=== PATIENT | male | born 1960 | race Caucasian/White ===

== ENCOUNTER → 2017-10-27 14:45 | Outpatient (CLI) | payer OTHER, SELFPAY | PROVIDERS: Visit Provider Orthopaedic Surgery | DX: M25.562 Pain in left knee (principal) | CPT/HCPCS: 73564 ==

== ENCOUNTER 2019-02-17 11:28 | Emergency (ER) | payer OTHER, SELFPAY ==
[2019-02-17 11:28] VITALS: BP 149/85; PULSE 71; RESP 18; TEMP 36.4; O2SAT 97; BMI 33.2
--- NOTE | 2019-02-17 11:46 | CT_ITS ---
STUDY: CT ABDOMEN AND PELVIS WITHOUT CONTRAST REASON FOR EXAM: Male, 58 years old. Right flank pain RADIATION DOSAGE (If Supplied By Facility): CTDIvol = ( 21.46 ) mGy, DLP = ( 1099.19 ) mGycm TECHNIQUE: Transaxial images were obtained from the dome of the diaphragm to the symphysis pubis without oral contrast, and without intravenous contrast. Sagittal and coronal images were reconstructed. Individualized dose optimization techniques were used for this CT. COMPARISON: None. FINDINGS: The visualized lung bases are unremarkable. The visualized portions of the heart are within normal limits. Normal liver. Normal gallbladder and extrahepatic biliary system. Normal spleen. Normal pancreas. Normal bilateral adrenal glands. Normal right kidney. Normal left kidney. Normal visualized stomach. Normal small intestine. Normal colon. The appendix is visualized and appears normal. Normal abdominal aorta. Normal inferior vena cava. Normal retroperitoneum. Normal urinary bladder. There is enlargement of the prostate gland. Nodular soft tissue focus in the region of the umbilicus measuring 2.4 x 1.3 cm may represent scar tissue. Right pelvic hernia repair material is noted with possible recurrence of a hernia at this location. Fat-containing left inguinal hernia. Normal osseous structures. CT/Abdomen/Pelvis without Cont IMPRESSION: No acute process is identified. A right hernia repair is noted with possible small recurrence of a fat-containing hernia dislocation. No renal stones are identified. Electronically Signed: Sukumar Cardenas, at 13:11 EST Tel , Service support ,
[2019-02-17 12:01] LABS: Absolute Lymphocyte Count 2.16 X10^3/uL (0.83-4.51); Absolute Neutrophil Count 3.7 X10^3/uL (2.0-7.7); Basophil# 0.03 X10^3/uL; Basophil% 0.5 % (0-1); Eosinophil# 0.13 X10^3/uL; Hematocrit 41.4 % (40-54); Hemoglobin 14.4 g/dL (13.0-16.5); Lymphocyte # 2.16 X10^3/ul (4.0); Lymphocyte % 33.1 % (19-41); Mean Corp Hgb Conc 34.8 g/dL (32-36); Mean Corpuscular Hgb 32.5 pg (27.0-32.0); Mean Corpuscular Volume 93.5 fL (80-94); Mean Platelet Vol. 9.5 fl (6.2-12.0); Monocyte# 0.48 X10^3/uL; Monocyte% 7.4 % (0-10); NRBC Flagged by Analyzer 0 % (0-5); Neutrophil # 3.69 X10^3/uL (2.7-7.7); Neutrophil % 56.5 % (47-70); Platelet Count 298 K/mm3 (150-450); RBC Distribution Width CV 11.8 % (11.6-14.6); RBC Distribution Width SD 40.8 fl (35.1-43.9); Red Blood Count 4.43 M/mm3 (4.6-6.2); White Blood Count 6.5 K/mm3 (4.4-11.0)
[2019-02-17] MEDS: 0.9% Normal Saline 1,000 ML 150 ML IV (12:10)
[2019-02-17] MEDS: HYDROmorphone 1 MG/ML Syringe IV ×2 (12:11→14:17)
[2019-02-17] MEDS: diazePAM 5 MG Tablet PO (12:11)
[2019-02-17] MEDS: Ketorolac 15 MG/ML Vial IV (12:11)
[2019-02-17] MEDS: Ondansetron 4 MG/2 ML Vial IV (12:11)
[2019-02-17 12:14] LABS: Anion Gap 4 (5-15); BUN 16 mg/dL (7-18); BUN/Creat Ratio 16.6 RATIO (10-20); Calcium,Total 8.6 mg/dL (8.5-10.1); Chloride 107 mmol/L (98-107); Creatinine, Serum 0.96 mg/dL (0.70-1.30); EST Glomerular Filtration Rate 85 mL/min (>60); Est Glom Filt Rate - Afr Amer 103 mL/min (>60); Estimated Creatinine Clearance 92.06 ml/min; Glucose 94 mg/dL (74-106); Potassium 4.1 mmol/L (3.5-5.1); Sodium Level 139 mmol/L (136-145)
--- NOTE | 2019-02-17 13:28 | ED.DCSUM_ITS ---
- ER Visit Summary Date of Service: 02/17/19 Chief Complaint: [Back pain] History of Present Illness: The patient is a 58 M [presents to the emergency department complaint of back pain that is had for for 5 months. Patient states his symptoms really became severe yesterday. Patient states that he lifted s omething for 5 months ago and injured his back and went to urgent care and was given prednisone and got significantly better. Yesterday started with some gradual pain in his back that progressively worsened to the point where he is having a hard time moving around now. Patient denies weakness in extremities. He denies any change in bowel bladder function. Patient does describe pain rating down both legs at times. Patient denies any fevers. He denies IV drug use. He denies difficulty with erection.] Physical Examination: [HEVINEET-PERRLA, EOMI. Cranial nerves II through XII grossly intact. TMs clear. Mucous membranes moist. No adenopathy. Cardiovascular-regular rate and rhythm without murmur or ectopy Lungs-clear to auscultation, chest wall stable without crepitus or subcu emphysema Abdomen-normoactive bowel sounds, soft, nontender, no rebound or rigidity, no peritoneal signs. Back exam-patient has tenderness palpation over right lumbar paraspinal muscu lature that seems to reproduce his pain. Patient does have positive straight leg raises bilaterally with pain in about 20 degrees while sitting. Deep tendon reflexes are plus 2 out of 4 bilaterally at the patella and Achilles. Patient has normal 5 extension bilaterally. Patient has normal sensation to light touch. Extremities-intact ?4, normal range of motion, normal pulses, atraumatic] Test Results: [CBC with differential obtained was normal. Chemistries normal. CT scan of the abdomen pelvis without contrast essentially showed nothing acute.] Emergency Department Course and Treatment: [Patient had an IV line established. He was given Dilaudid as well as Zofran. Patient was given p.o. Valium and he had good pain relief with that. Patient is able to move around easier.] Treatment Plan: [Patient will be given a prescription for Valium as well as [place] and a Medrol Dosepak. Patient advised to follow-up with his primary care physician within next 3 to 5 days. Patient advised to return if worsening pain, weakness in extremities, change in bowel bladder function, or condition should worsen anyway. At this time he was cautioned on signs and symptoms of cauda equina which he does not currently have.] Patient understands he may require further imaging if symptoms do not improve or worsen such as possibly MRI. Disposition: [Discharged home in stable condition.] Impression: [Back pain Lumbar radiculopathy] This note was generated with [employer] dictation software. It may contain incorrect words, spelling, and punctuation that were not noted in review of the chart prior to signing ED Disposition - Plan for ED Patient: Referrals: Care Physician,No Primary [Primary Care Provider] -
--- NOTE | 2019-02-17 13:31 | ED.DEP ---
ED Disposition - Plan for ED Patient: Instructions: BACK SPASM, No Trauma, BACK PAIN w/ SCIATICA Prescriptions: MethylPREDNISolone DosePak [Medrol DosePak] 4 mg PO UD #1 box Prescription Printed Hydrocodone Bitart/Apap 5-325 [[place] 5MG-325MG] 1 tab PO Q4H PRN PRN 2 Days #20 tab PRN Reason: Pain Prescription Printed Diazepam [Valium] 5 mg PO Q8 PRN #10 tab PRN Reason: Muscle Spasm Prescription Printed Referrals: Care Physician,No Primary [Primary Care Provider] - Ti Dorsey MD [STAFF PHYSICIAN] - 3-5 Days
[2019-02-17 14:36] VITALS: BP 144/72; PULSE 53; PULSE 56; RESP 18; O2SAT 98
== END 2019-02-17 14:44 | disposition home or self-care (01) ==
LOC: ED 11:54
PROVIDERS: Emergency Provider Emergency Medicine
DX: M54.16 Radiculopathy, lumbar region (principal)
CPT/HCPCS: 74176; 80048; 85025; 96361; 96374; 96375; 96376; 99283; J7030; A4216; J2405

== ENCOUNTER 2020-05-30 15:05 | Outpatient (RCR) | payer OTHER, SELFPAY ==
[2020-05-30] MEDS: COVID-19 VACC, MRNA(PFIZER)/PF 30 MCG/0.3 ML SYRINGE IM (13:18)
[2020-06-20] MEDS: COVID-19 VACC, MRNA(PFIZER)/PF 30 MCG/0.3 ML SYRINGE IM (12:31)
== END 2020-05-30 23:59 ==
LOC: IMMUN 15:05
PROVIDERS: PCP Family Medicine; Visit Provider Family Medicine
DX: Z23 Encounter for immunization (principal)
CPT/HCPCS: 0001A; 0002A; 91300

== ENCOUNTER 2023-03-02 04:07 | Emergency (ER) | payer OTHER, SELFPAY ==
[2023-03-02 04:09] VITALS: BP 158/85; PULSE 76; RESP 15; TEMP 36.3; O2SAT 99
--- NOTE | 2023-03-02 04:22 | EDS_ITS ---
HPI History of Present Illness Chief Complaint: Back Informant: patient and spouse/S.O. Narrative Narrative: Presents with right-sided lower back pain. Patient's had problems like this couple times in the past. He is actually responded well to steroids. He states yesterday he got out of bed and felt a sharp pain in his lower back. He went to work and he was able to come to work it out and did better. But if he bent in certain ways it caused pain. Occasion ally the pain goes down the back of his leg but does not go quite to his knee. No weakness. Patient has no bowel or bladder acute dysfunction. For the last 6 or 8 months he has been having more frequent urination and night but figures this is large prostate and his brother had the same problem. There is no acute change in this. He has had some constipation problems in the past but not having them now. He has not had fevers or chills. No acute trauma. He has never had back surgery. [facility] Medical History Back pain Brain tumor Cancer of skin, face Sfwmk-Cqusolxrj-Rnakg (WPW) syndrome Home Medications hydrocodone-acetaminophen 5-325mg 5mg-325mg 1 tab PO Q6H PRN PRN Pain 3 days #10 TABLETS 03/02/23 [Rx Last Taken Unknown] prednisone 20 mg tablet 60 mg (3 x 20 mg) PO DAILY #15 TABLETS 03/02/23 [Rx Last Taken Unknown] Allergy/AdvReac Type Severity Reaction Status Date / Time latex Allergy Hives Verified 02/17/19 11:31 Surgical History H/O right knee surgery History of hernia surgery Social History Smoking Status: Never smoker ROS ROS ED ROS Narrative A complete review of systems was performed and is negative except as documented in the history of present illness. Some specific details below. Constitutional: No recent fevers or chills. No rigors. Patient has not generally felt ill. ENT: No sinus pressure or pain. No nasal discharge. CV: No chest pain, pressure or aching. No palpitations or irregular beats. Patient has not been presyncopal or syncopal. 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 Respiratory: No trouble breathing. No cough. GI: No abdominal pain. No nausea vomiting diarrhea. No blood in stool. No loss of bowel control. No history of AAA. : No frequency dysuria or hematuria. No incontinence or urinary retention. Also see history of present illness Musculoskeletal: No recent trauma. No swelling. Please see history of present illness. Skin: No rash. No diaphoresis. No vesicles. Neuro: No weakness or numbness. He has pain that will occasionally radiate down the back of the right leg but does not go quite to the knee. No weakness of ambulation. No sensory changes in the extremities. Please see history of present illness also. Endocrine: No polyuria or polydipsia. EXAM Physical Exam Narrative Exam Narrative: CONSTITUTIONAL: Patient is nontoxic in appearance. The patient looks comfortable. Work of breathing looks normal. HEENT: No notable trauma. Mucous membranes moist. No dental infections. EYES: No conjunctival injection. No pallor. NECK: No meningismus. No JVD. CARDIOVASCULAR: Regular rate. Regular rhythm. No notable murmur. No JVD. RESPIRATORY: No respiratory distress. Breathing is unlabored. No wheezes. No rhonchi. No rales. No pain with a deep breath. GASTROINTESTINAL: Not distended. Bowel sounds are normal. No tenderness. No guarding. No rebound. No palpable mass. No bruit. GENITOURINARY: No tenderness over the bladder. No CVA tenderness. MUSCULOSKELETAL: Atraumatic. No peripheral edema. No cord. No tenderness along the deep venous system. No asymmetry. Distal pulses are intact. Patient does have some little very low right paraspinal tenderness. This is not CVA tenderness. This is much lower. But there is no skin changes there. He has only very mild sciatic notch tenderness. NEUROLOGICAL: Patient is alert and oriented. No focal deficit noted. Patient can stand on toes and heels and do squats although that does hurt the back a bit. Patellar reflex is strong and 2+. Achilles reflex 1+ bilaterally. SKIN: No noted rashes. No diaphoresis. No vesicles noted. No notable pallor. PSYCHIATRIC: Patient is calm. Mood is appropriate. Const Vital Signs: 03/02/23 04:09 Temperature 97.3 F L Temperature Source Temporal Pulse Rate 76 Respiratory Rate 15 Blood Pressure 158/85 H Blood Pressure Mean 109 Pulse Ox 99 Oxygen Delivery Method Room Air MDM MDM MDM Narrative Medical decision making narrative: Patient has what sounds like musculoskeletal back pain. He has no red flags of back pain. He has had this before. He has responded well to steroids. I will initiate those. I will also give him straight meds for pain. I would like to avoid nonsteroidals while he is on steroids. His online prescribing report shows absolutely no controlled substances at all. I believe this patient is seeking improvement in management of his pain and is not seeking meds specifically. Discharge Plan Triage Chief Complaint: Back ED Provider: Stanley Rasmussen Dx/Rx/DC Orders Clinical Impression: Right lumbar pain Instructions: ED Back Pain (Acute or Chronic) Prescriptions: New hydrocodone-acetaminophen [hydrocodone-acetaminophen] 5-325 mg tablet 1 tab PO Q6H PRN PRN (Reason: Pain) 3 Days Qty: 10 0RF prednisone 20 mg tablet 60 mg PO DAILY Qty: 15 0RF Stand Alone Forms: ED Work / School Excuse Referrals: Janet Apple MD [Med Staff - [facility]] - 3-5 Days if not improving Activity Restrictions/Additional Instructions: Follow-up with your doctor or referral as above. Disposition Disposition: Home, Self Care
--- NOTE | 2023-03-02 04:53 | ED.RN ---
TORADOL 30 MG IM GIVEN LEFT DELTOID @ 0444. MORPHINE 4 MG IM GIVEN RIGHT DELTOID @ 0446. MEDICATIONS VERIFIED WITH PRAVIN CANDELARIO RN.
[2023-03-02 05:13] VITALS: BP 126/89; PULSE 78; RESP 15; O2SAT 98
== END 2023-03-02 05:14 | disposition home or self-care (01) ==
PROVIDERS: Emergency Provider Emergency Medicine; Visit Provider Emergency Medicine
DX: M54.50 Low back pain, unspecified (principal)
CPT/HCPCS: 99282

== ENCOUNTER → 2023-12-30 | Outpatient (CLI) | payer OTHER, SELFPAY ==
[2023-12-30 07:29] LABS: AST(SGOT) 15 U/L (15-37); Alanine Aminotransfer ALT/SGPT 21 U/L (16-61); Albumin, Serum 3.7 g/dL (3.2-5.0); Alkaline Phosphatase 64 U/L (45-117); Bilirubin, Direct 0.28 mg/dL (0.00-0.30); Cholesterol 206 mg/dL (200); Globulin 3.3 g/dL (2.2-4.2); High Density Lipoprotein 46 mg/dL; Triglycerides 93 mg/dL; Very Low Density Lipoprotein 19 mg/dL (5-40)
== END | disposition home or self-care (01) ==
PROVIDERS: PCP Family Medicine; Referring Provider Family Medicine; Visit Provider Family Medicine
DX: Z00.00 Encounter for general adult medical examination without abnormal findings (principal); Z91.89 Other specified personal risk factors, not elsewhere classified
CPT/HCPCS: 36415; 80061; 80076

== ENCOUNTER → 2024-01-06 | Outpatient (CLI) | payer OTHER, SELFPAY ==
--- OUTSIDE RECORDS SUMMARY | 2024-01-06 10:24 | XMS RPT_ITS | CCD ---
Author Organization [facility] Care Team Providers Care Urinalysis Technician Name Role Phone RHETT PALENCIA III Attending CHARMAINE Carver Primary Care Physician [phone] KEYUR STEWART, DR ANDRIY Resendiz Attending CHARMAINE Hernandez Primary Care Pieter BAER MD, DR ANDRIY Resendiz Attending Geneab CAMMIE AgueroNAH Primary Care Pieter BAER MD, DR ANDRIY Resendiz Attending CHARMAINE Hernandez Primary Care Pieter BAER MD, DR ANDRIY Resendiz Admitting Unavailab bryan JACOBSEN CRUSHER-SEAL MIXING OPERATOR, MIKO Zhou Consulting León BAER MD, DR ANDRIY Resendiz Referring Geneab le Allergies Allergy Classification Reported Allergen(s) Allergy Type Date of Onset Reaction(s) Facility (4 sources) Latex; Translations: [LATEX] Propensity to adverse reactions (disorder) 3 RASH [facility] Other [place] [facility]ository Medications Current Medications Medication Drug Class(es) Dates Sig (Normalized) Sig (Original) acetaminophen 1000 mg oral tablet (1 source) Start: 09-14-2023 take 1 tablet by mouth once daily Tylenol Dose : 1,000 mg = 2 tab(s), Oral, TID, not to exceed 3000 mg/day, 0 Refill(s) Start Date: 09/14/23 Status: Ordered aspirin 81 mg delayed release oral tablet (1 source) Platelet Aggregation Inhibitor, Nonsteroidal Anti-inflammatory Drug Start: 09-14-2023 End: 10-14-2023 take 1 tablet by mouth twice daily aspirin 81 mg oral delayed release tablet Dose : 81 mg = 1 tab(s), Oral, BID, Take 81 mg aspirin twice daily with food for 4 weeks postoperatively for DVT prophylaxis., # 60 tab(s), 0 Refill(s), Pharmacy: [facility]/pharmacy #[id number], 182, cm, 09/13/23 13:39:00 EDT, Height, kg, 09/13/23 13:39:00 EDT, Dosing Weight Start Date: 09/14/23 Stop Date: 10/14/23 Status: Ordered docusate sodium 50 mg / sennosides, halfway 8.6 mg oral tablet (1 source) Start: 09-14-2023 End: 09-17-2023 take 1 tablet by mouth twice daily Senokot S 50 mg-8.6 mg oral tablet Dose = 2 tab(s), Oral, BID, Take until first bowel movement, then as needed, X 3 day(s), # 12 tab(s), 0 Refill(s), Pharmacy: [facility]/pharmacy #[id number], 182, cm, 09/13/23 13:39:00 EDT, Height, kg, 09/13/23 13:39:00 EDT, Dosing Weight Start Date: 09/14/23 Stop Date: 09/17/23 Status: Ordered famotidine 20 mg oral tablet (1 source) Histamine-2 Receptor Antagonist Start: 09-14-2023 Pepcid 20 mg oral tablet Dose : 20 mg = 1 tab(s), Oral, qDay, # 30 tab(s), 0 Refill(s), Pharmacy: [facility]/pharmacy #[id number], 182, cm, 09/13/23 13:39:00 EDT, Height, kg, 09/13/23 13:39:00 EDT, Dosing Weight Start Date: 09/14/23 Status: Ordered loratadine 10 mg oral tablet (3 sources) Start: 08-17-2023 Claritin 10 mg oral tablet Dose : 10 mg = 1 tab(s), Oral, qDay, # 30 tab(s), 2 Refill(s) Start Date: 08/17/23 Status: Ordered meloxicam 15 mg oral tablet (3 sources) Nonsteroidal Anti-inflammatory Drug Start: 08-17-2023 take 1 tablet by mouth once daily meloxicam 15 mg oral tablet TAKE 1 TABLET BY MOUTH ONCE DAILY Start Date: 08/17/23 Status: Ordered oxyCODONE hydrochloride 5 mg oral tablet (1 source) Opioid Agonist Start: 09-14-2023 End: 09-21-2023 take 1-2 tablets by mouth every four hours as needed for pain oxyCODONE 5 mg oral tablet ( IMMEDIATE release ) See Instructions, PRN as needed for pain, 1-2 tab(s) Oral q4h, # 48 tab(s), 0 Refill(s), 09/21/23 7:47:00 AM EDT, Pharmacy: [facility]/pharmacy #[id number], Status post total left knee replacement, 182, cm, 09/13/23 13:39:00 EDT, Height, 108.5, kg, 09/13/23 13:39:00 EDT, Dosing Weight Start Date: 09/14/23 Stop Date: 09/21/23 Status: Ordered Problems Problem Classification Problem Date Documented Da te Episodic/Chronic Allergic reactions (1 source) Allergic disposition; Translations: [Allergy, unspecified, initial encounter] Onset: 09-13-2023 Episodic Neoplasms of unspecified nature or uncertain behavior (1 source) 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 Osteoarthritis (1 source) Osteoarthritis; Translations: [Unspecified osteoarthritis, unspecified site] Onset: 09-13-2023 Chronic Other connective tissue disease (1 source) Artificial knee joint present; Translations: [Presence of left artificial knee joint] Onset: 09-14-2023 Chronic Spondylosis; intervertebral disc disorders; other back problems (2 sources) Backache; Translations: [Dorsalgia, unspecified] Onset: 09-13-2023 Episodic Sprains and strains (1 source) Strain of muscle, fascia and tendon of other parts of biceps, right arm, initial encounter; Translations: [Strain of muscle, fascia and tendon of other parts of biceps, right arm, initial encounter] Onset: 04-05-2018 Episodic Unclassified (1 source) Patient encounter status 08-29-2023 Results Test Name Value Interpretation Reference Range Facility .Auto Diffon 09-14-2023 Basophil, Absolute 0.0 10 3/mcL Normal 0.0-0.2 [facility] ([place]) Comment on above: Performed By: #### G FR, CBC, HAYDEE ESTES, BMP #### [address] [address] Basophils/100 WBC (Bld) 0.1 % Normal 0.0-2.5 [facility] ([place]) Comment on above: Performed By: #### G FR, CBC, ADLAURI, ANEU, BMP #### [address] [address] Eosinophil, Absolute 0.0 10 3/mcL Normal 0.0-0.4 [facility] ([place]) Comment on above: Performed By: #### G FR, CBC, ADIFF, ANEU, BMP #### [address] [address] Eosinophils/100 WBC (Bld) 0.0 % Normal 0.0-7.0 [facility] ([place]) Comment on above: Performed By: #### G FR, CBC, ADIFF, ANEU, BMP #### [address] [address] Lymphocyte, Absolute 1.3 10 3/mcL Normal 0.8-3.9 [facility] ([place]) Comment on above: Performed By: #### G FR, CBC, ADIFF, ANEU, BMP #### [address] [address] Lymphocytes/100 WBC (Bld) 8.5 % Low 10.0-50.0 [facility] ([place]) Comment on above: Performed By: #### G FR, CBC, ADIFF, ANEU, BMP #### [address] [address] Monocyte, Absolute 0.8 10 3/mcL Normal 0.2-1.0 [facility] ([place]) Comment on above: Performed By: #### G FR, CBC, ADIFF, ANEU, BMP #### [address] [address] Monocytes/100 WBC (Bld) 5.4 % Normal 1.7-13.0 [facility] ([place]) Comment on above: Performed By: #### G FR, CBC, ADIFF, ANEU, BMP #### [address] [address] Neutrophils/100 WBC (Bld) 86.0 % High 37.0-80.0 [facility] ([place]) Comment on above: Performed By: #### G FR, CBC, ADIFF, ANEU, BMP #### [address] [address] .GFRon 09-14-2023 GFR 87 ml/min/1.73sqm Normal [facility] ([place]) Comment on above: Result Comment: GFR Population mean for , Non- Americans Ages 20-29 = 116 mL/min/1.73 sq.m. Ages 30-39 = 107 mL/min/1.73 sq.m. Ages 40-49 = 99 mL/min/1.73 sq.m. Ages 50-59 = 93 mL/min/1.73 sq.m. Ages 60-69 = 85 mL/min/1.73 sq.m. Ages 70+ = 75 mL/min/1.73 sq.m. Chronic Kidney Disease: Less than 60 mL/min/1.73 square meters End Stage Renal Disease: Less than 15 mL/min/1.73 square meters Performed By: #### G FR, CBC, ADIFF, ANEU, BMP #### [address] [address] GFR Non- 72 ml/min/1.73sqm Normal [facility] ([place]) Comment on above: Result Comment: GFR Population mean for , Non- Americans Ages 20-29 = 116 mL/min/1.73 sq.m. Ages 30-39 = 107 mL/min/1.73 sq.m. Ages 40-49 = 99 mL/min/1.73 sq.m. Ages 50-59 = 93 mL/min/1.73 sq.m. Ages 60-69 = 85 mL/min/1.73 sq.m. Ages 70+ = 75 mL/min/1.73 sq.m. Chronic Kidney Disease: Less than 60 mL/min/1.73 square meters End Stage Renal Disease: Less than 15 mL/min/1.73 square meters Performed By: #### G FR, CBC, ADIFF, ANEU, BMP #### [address] [address] .NEUABSon 09-14-2023 Neutrophil, Absolute 12.8 10 3/mcL High 2.9-6.2 A [facility] ([place]) Comment on above: Performed By: #### G FR, CBC, ADIFF, ANEU, BMP #### [address] [address] BMPon 09-14-2023 BUN/Creatinine Ratio 23 ratio Normal 7-27 [facility] ([place]) Comment on above: Performed By: #### G FR, CBC, ADIFF, ANEU, BMP #### [address] [address] Calcium [Mass/Vol] 9.2 mg/dL Normal 8.4-10.2 [facility] [place] Comment on above: Performed By: #### G FR, CBC, ADIFF, ANEU, BMP #### [place] [id number] Chloride [Moles/Vol] 103 mmol/L Normal 98-107 [facility] ([place]) Comment on above: Performed By: #### G FR, CBC, ADIFF, ANEU, BMP #### [place] [address] CO2 [Moles/Vol] 26 mmol/L Normal 23-31 [facility] ([place]) Comment on above: Performed By: #### G FR, CBC, ADIFF, ANEU, BMP #### [place] [address] Creatinine [Mass/Vol] 1.04 mg/dL Normal 0.70-1.30 [facility] ([place]) Comment on above: Performed By: #### G FR, CBC, ADIFF, ANEU, BMP #### [address] [address] Electrolyte Balance 10.0 mEq/L Normal 4.0-15.0 [facility] ([place]) Comment on above: Performed By: #### G FR, CBC, ADIFF, ANEU, BMP #### [place] [id number] Glucose [Mass/Vol] 118 mg/dL High 80-115 [facility] [place] Comment on above: Performed By: #### G FR, CBC, ADIFF, ANEU, BMP #### [address] [address] Potassium [Moles/Vol] 5.1 mmol/L Normal 3.5-5.1 [facility] ([place]) Comment on above: Performed By: #### G FR, CBC, ADIFF, ANEU, BMP #### [address] [address] Sodium [Moles/Vol] 139 mmol/L Normal 136-145 [facility] [place] Comment on above: Performed By: #### G FR, CBC, ADIFF, ANEU, BMP #### [address] [address] Urea nitrogen [Mass/Vol] 24 mg/dL High 7-18 [facility] ([place]) Comment on above: Performed By: #### G FR, CBC, ADIFF, ANEU, BMP #### [address] [address] CBCon 09-14-2023 Erythrocyte distribution width (RBC) [Ratio] 13.3 % Normal 11.5-14.5 [facility] ([place]) Comment on above: Performed By: #### G FR, CBC, ADIFF, ANEU, BMP #### [place] [address] Hematocrit (Bld) [Volume fraction] 35.4 % Low 42.0-52.0 [facility] ([place] Comment on above: Performed By: #### G FR, CBC, ADIFF, ANEU, BMP #### [address] [address] Hgb 12.1 G/dL Low 14.0-18.0 [facility] ([place] Comment on above: Performed By: #### G FR, CBC, ADIFF, ANEU, BMP #### [address] [address] MCH (RBC) [Entitic mass] 31.7 pg High 27.0-31.2 [facility] ([place]) Comment on above: Performed By: #### G FR, CBC, ADIFF, ANEU, BMP #### [address] [place] [address] MCHC 34.1 G/dL Normal 31.8-35.4 [facility] ([place]) Comment on above: Performed By: #### G FR, CBC, ADIFF, ANEU, BMP #### [address] [address] MCV (RBC) [Entitic vol] 92.7 fL Normal 80.0-94.0 [facility] ([place]) Comment on above: Performed By: #### G FR, CBC, ADIFF, ANEU, BMP #### [place] [address] Platelet 288 10 3/mcL Normal 130-400 [facility] ([place]) Comment on above: Performed By: #### G FR, CBC, ADIFF, ANEU, BMP #### [place] [address] Platelet mean volume (Bld) [Entitic vol] 8.4 fL Normal 7.4-10.4 [facility] ([place]) Comment on above: Performed By: #### G FR, CBC, ADIFF, ANEU, BMP #### [place] [address] RBC 3.82 10 6/mcL Low 4.04-6.13 [facility] ([place] Comment on above: Performed By: #### G FR, CBC, ADIFF, ANEU, BMP #### [place] [id number] WBC 14.9 10 3/mcL High 4.6-10.8 [facility] ([place]) Comment on above: Performed By: #### G FR, CBC, ADIFF, ANEU, BMP #### [address] [address] LABORATORYOrdered By: SYSTEM SYSTEM on 09-14-2023 Basophil, Absolute 0.0 103/mcL Normal 0.0 - 0.2 10^3/mcL AO Workflow SS Basophils/100 WBC (Bld) 0.1 % Normal 0.0 - 2.5 % AO Workflow SS Calcium [Mass/Vol] 9.2 mg/dL Normal 8.4 - 10. 2 mg/dL AO ADM SS Chloride [Moles/Vol] 103 mmol/L Normal 98 - 10 7 mmol/L AO ADM SS CO2 [Moles/Vol] 26 mmol/L Normal 23 - 31 mmol/L AO ADM SS Creatinine [Mass/Vol] 1.04 mg/dL Normal 0.70 - 1.30 mg/dL AO ADM SS Electrolyte Balance 10.0 mEq/L Normal 4.0 - 15 .0 mEq/L AO ADM SS Eosinophil, Absolute 0.0 103/mcL Normal 0.0 - 0 .4 10^3/mcL AO Workflow SS Eosinophils/100 WBC (Bld) 0.0 % Normal 0.0 - 7.0 % AO Workflow SS Erythrocyte distribution width (RBC) [Ratio] 13.3 % Normal 11.5 - 14.5 % AO Workflow SS GFR/1.73 sq M.predicted among blacks MDRD (S/P/Bld) [Vol rate/Area] 87 ml/min/1.73sqm Invalid Interpretation Code AO Chemistry S Comment on above: Interpretive Data: GFR Population mean for , Non- Americans Ages 20-29 = 116 mL/min/1.73 sq.m. Ages 30-39 = 107 mL/min/1.73 sq.m. Ages 40-49 = 99 mL/min/1.73 sq.m. Ages 50-59 = 93 mL/min/1.73 sq.m. Ages 60-69 = 85 mL/min/1.73 sq.m. Ages 70+ = 75 mL/min/1.73 sq.m. Chronic Kidney Disease: Less than 60 mL/min/1.73 square meters End Stage Renal Disease: Less than 15 mL/min/1.73 square meters GFR/1.73 sq M.predicted among non-blacks MDRD (S/P/Bld) [Vol rate/Area] 72 ml/min/1.73sqm Invalid Interpretation Code AO Chemistry S Comment on above: Interpretive Data: GFR Population mean for , Non- Americans Ages 20-29 = 116 mL/min/1.73 sq.m. Ages 30-39 = 107 mL/min/1.73 sq.m. Ages 40-49 = 99 mL/min/1.73 sq.m. Ages 50-59 = 93 mL/min/1.73 sq.m. Ages 60-69 = 85 mL/min/1.73 sq.m. Ages 70+ = 75 mL/min/1.73 sq.m. Chronic Kidney Disease: Less than 60 mL/min/1.73 square meters End Stage Renal Disease: Less than 15 mL/min/1.73 square meters Glucose [Mass/Vol] 118 mg/dL High 80 - 115 mg/dL AO ADM SS Hematocrit (Bld) [Volume fraction] 35.4 % Low 42.0 - 52.0 % AO Workflow SS Hemoglobin (Bld) [Mass/Vol] 12.1 G/dL Low 14.0 - 18.0 G/dL AO Workflow SS Lymphocyte, Absolute 1.3 103/mcL Normal 0.8 - 3 .9 10^3/mcL AO Workflow SS Lymphocytes/100 WBC (Bld) 8.5 % Low 10.0 - 50.0 % AO Workflow SS Magnesium [Mass/Vol] 1.9 mg/dL Normal 1.8 - 2 .4 mg/dL AO ADM SS MCH (RBC) [Entitic mass] 31.7 pg High 27.0 - 31.2 pg AO Workflow SS MCHC 34.1 G/dL Normal 31.8 - 35.4 G/dL AO Workflow SS MCV (RBC) [Entitic vol] 92.7 fL Normal 80.0 - 94.0 fL AO Workflow SS Monocyte, Absolute 0.8 103/mcL Normal 0.2 - 1.0 10^3/mcL AO Workflow SS Monocytes/100 WBC (Bld) 5.4 % Normal 1.7 - 13.0 % AO Workflow SS Neutrophil, Absolute 12.8 103/mcL High 2.9 - 6 .2 10^3/mcL AO Workflow SS Neutrophils/100 WBC (Bld) 86.0 % High 37.0 - 80.0 % AO Workflow SS Platelet mean volume (Bld) [Entitic vol] 8.4 fL Normal 7.4 - 10.4 fL AO Workflow SS Platelets (Bld) [#/Vol] 288 103/mcL Normal 130 - 400 10^3/mcL AO Workflow SS Potassium [Moles/Vol] 5.1 mmol/L Normal 3.5 - 5.1 mmol/L AO ADM SS RBC (Bld) [#/Vol] 3.82 106/mcL Low 4.04 - 6.1 3 10^6/mcL AO Workflow SS Sodium [Moles/Vol] 139 mmol/L Normal 136 - 145 mmol/L AO ADM SS Urea nitrogen [Mass/Vol] 24 mg/dL High 7 - 18 mg/dL AO ADM SS Urea nitrogen/Creatinine [Mass ratio] 23 ratio Normal 7 - 27 ratio AO ADM SS WBC (Bld) [#/Vol] 14.9 103/mcL High 4.6 - 10.8 10^3/mcL AO Workflow SS MGon 09-14-2023 Magnesium [Mass/Vol] 1.9 mg/dL Normal 1.8-2.4 [facility] ([place]) Comment on above: Performed By: #### G FR, CBC, ADIFF, ANEU, BMP #### [address] [address] ABO/Rh (Gel)on 09-13-2023 ABO/Rh Interp Negative Invalid Interpretation Code [facility] ([place]) Comment on above: Performed By: #### G FR, CBC, ADIFF, ANEU, BMP #### [address] [address] ABS (Gel)on 09-13-2023 ABSC Interp (Gel) Negative Normal [facility] ([place]) Comment on above: Performed By: #### G FR, CBC, ADIFF, ANEU, BMP #### [address] [address] LABORATORYOrdered By: Harrison Zavala on 09-13-2023 ABO and Rh group Nom (Bld) Blood group B Rh(D) negative Invalid Interpretation Code AO BB Auto SS Blood group antibody screen Ql Negative ABSC (09/13/23 8:38 AM) Normal AO BB Auto SS XR KNEE 1 OR 2 VIEWS LEFTon 09-13-2023 XR KNEE 1 OR 2 VIEWS LEFT ORIGINAL EXAMINATION: TWO XRAY VIEWS OF THE LEFT KNEE 09/13/2023 12:51 pm COMPARISON: CT of the knee dated 08/17/2023. HISTORY: ORDERING SYSTEM PROVIDED HISTORY: Reason for Exam: Status Post Arthroplasty FINDINGS: Postsurgical changes are seen status post left total knee arthroplasty. No acute fracture, dislocation or hardware failure is seen. Subcutaneous emphysema is appreciated. No unexpected radiopaque foreign body. IMPRESSION: Expected postsurgical changes status post left total knee arthroplasty. Interpreted by: Quintin Alex MD Preliminary Report By: Quintin Alex MD Electronically signed By Quintin Alex MD Dictated Date: 09/13/2023 1:01:32 PM Prelim Date: 09/13/2023 1:03:18 PM Sign Date: 09/13/2023 1:03:18 PM Ordering Provider: ANDRIY Beach [facility] ([place]) .Auto Diffon 08-17-2023 Basophil, Absolute 0.0 10 3/mcL Normal 0.0-0.2 [facility] ([place]) Comment on above: Performed By: #### G FR, ANEU, ADIFF, CBC, ALB, BMP, ABOGEL, ABSGEL #### [address] [address] Basophils/100 WBC (Bld) 0.7 % Normal 0.0-2.5 [facility]) Comment on above: Performed By: #### G FR, ANEU, ADIFF, CBC, ALB, BMP, ABOGEL, ABSGEL #### [address] [address] Eosinophil, Absolute 0.1 10 3/mcL Normal 0.0-0.4 [facility] ([place]) Comment on above: Performed By: #### G FR, ANEU, ADIFF, CBC, ALB, BMP, ABOGEL, ABSGEL #### [address] [address] Eosinophils/100 WBC (Bld) 1.7 % Normal 0.0-7.0 [facility] ([place]) Comment on above: Performed By: #### G FR, ANEU, ADIFF, CBC, ALB, BMP, ABOGEL, ABSGEL #### [address] [address] Lymphocyte, Absolute 2.1 10 3/mcL Normal 0.8-3.9 [facility] ([place]) Comment on above: Performed By: #### G FR, ANEU, ADIFF, CBC, ALB, BMP, ABOGEL, ABSGEL #### [address] [address] Lymphocytes/100 WBC (Bld) 30.6 % Normal 10.0-50.0 [facility] ([place]) Comment on above: Performed By: #### G FR, ANEU, ADIFF, CBC, ALB, BMP, ABOGEL, ABSGEL #### [address] [address] Monocyte, Absolute 0.5 10 3/mcL Normal 0.2-1.0 [facility] ([place]) Comment on above: Performed By: #### G FR, ANEU, ADIFF, CBC, ALB, BMP, ABOGEL, ABSGEL #### [address] [address] Monocytes/100 WBC (Bld) 7.7 % Normal 1.7-13.0 [facility] ([place]) Comment on above: Performed By: #### G FR, ANEU, ADIFF, CBC, ALB, BMP, ABOGEL, ABSGEL #### [address] [address] Neutrophils/100 WBC (Bld) 59.3 % Normal 37.0-80.0 [facility] ([place]) Comment on above: Performed By: #### G FR, ANEU, ADIFF, CBC, ALB, BMP, ABOGEL, ABSGEL #### [address] [address] .GFRon 08-17-2023 GFR Non- 99 ml/min/1.73sqm Normal [facility] ([place]) Comment on above: Result Comment: GFR Population mean for , Non- Americans Ages 20-29 = 116 mL/min/1.73 sq.m. Ages 30-39 = 107 mL/min/1.73 sq.m. Ages 40-49 = 99 mL/min/1.73 sq.m. Ages 50-59 = 93 mL/min/1.73 sq.m. Ages 60-69 = 85 mL/min/1.73 sq.m. Ages 70+ = 75 mL/min/1.73 sq.m. Chronic Kidney Disease: Less than 60 mL/min/1.73 square meters End Stage Renal Disease: Less than 15 mL/min/1.73 square meters Performed By: #### G FR, CBC, ADIFF, ANEU, BMP #### [address] [address] GFR 120 ml/min/1.73sqm Normal [facility] ([place]) Comment on above: Result Comment: GFR Population mean for , Non- Americans Ages 20-29 = 116 mL/min/1.73 sq.m. Ages 30-39 = 107 mL/min/1.73 sq.m. Ages 40-49 = 99 mL/min/1.73 sq.m. Ages 50-59 = 93 mL/min/1.73 sq.m. Ages 60-69 = 85 mL/min/1.73 sq.m. Ages 70+ = 75 mL/min/1.73 sq.m. Chronic Kidney Disease: Less than 60 mL/min/1.73 square meters End Stage Renal Disease: Less than 15 mL/min/1.73 square meters Performed By: #### G FR, CBC, ADIFF, ANEU, BMP #### [address] [address] .NEUABSon 08-17-2023 Neutrophil, Absolute 4.0 10 3/mcL Normal 2.9-6.2 [facility] ([place]) Comment on above: Performed By: #### G FR, ANEU, ADIFF, CBC, ALB, BMP, ABOGEL, ABSGEL #### [address] [address] ABO/Rh (Gel)on 08-17-2023 ABO/Rh Interp Negative Invalid Interpretation Code [facility] ([place]) Comment on above: Performed By: #### G FR, CBC, ADIFF, ANEU, BMP #### [address] [address] ABS (Gel)on 08-17-2023 ABSC Interp (Gel) Negative Normal [facility] ([place]) Comment on above: Performed By: #### G FR, CBC, ADIFF, ANEU, BMP #### [address] [address] ALBon 08-17-2023 Albumin Level 3.7 G/dL Normal 3.4-4.8 [facility] ([place]) Comment on above: Performed By: #### G FR, CBC, ADIFF, ANEU, BMP #### [address] [address] BMPon 08-17-2023 BUN/Creatinine Ratio 25 ratio Normal 7-27 [facility] ([place]) Comment on above: Performed By: #### G FR, ANEU, ADIFF, CBC, ALB, BMP, ABOGEL, ABSGEL #### [address] [address] Calcium [Mass/Vol] 8.3 mg/dL Low 8.4-10.2 [facility] [place] Comment on above: Performed By: #### G FR, ANEU, ADIFF, CBC, ALB, BMP, ABOGEL, ABSGEL #### [address] [address] Chloride [Moles/Vol] 104 mmol/L Normal 98-107 [facility] ([place]) Comment on above: Performed By: #### G FR, ANEU, ADIFF, CBC, ALB, BMP, ABOGEL, ABSGEL #### [address] [address] CO2 [Moles/Vol] 27 mmol/L Normal 23-31 [facility] ([place]) Comment on above: Performed By: #### G FR, ANEU, ADIFF, CBC, ALB, BMP, ABOGEL, ABSGEL #### [address] [address] Creatinine [Mass/Vol] 0.79 mg/dL Normal 0.70-1.30 [facility] ([place]) Comment on above: Performed By: #### G FR, ANEU, ADIFF, CBC, ALB, BMP, ABOGEL, ABSGEL #### [address] [address] Electrolyte Balance 10.0 mEq/L Normal 4.0-15.0 [facility] ([place]) Comment on above: Performed By: #### G FR, ANEU, ADIFF, CBC, ALB, BMP, ABOGEL, ABSGEL #### [address] [address] Glucose [Mass/Vol] 86 mg/dL Normal 80-115 [facility] [place] Comment on above: Performed By: #### G FR, ANEU, ADIFF, CBC, ALB, BMP, ABOGEL, ABSGEL #### [address] [address] Potassium [Moles/Vol] 4.6 mmol/L Normal 3.5-5.1 [facility] ([place]) Comment on above: Performed By: #### G FR, ANEU, ADIFF, CBC, ALB, BMP, ABOGEL, ABSGEL #### [address] [address] Sodium [Moles/Vol] 141 mmol/L Normal 136-145 [facility] [place] Comment on above: Performed By: #### G FR, ANEU, ADIFF, CBC, ALB, BMP, ABOGEL, ABSGEL #### [address] [address] Urea nitrogen [Mass/Vol] 20 mg/dL High 7-18 [facility] ([place]) Comment on above: Performed By: #### G FR, ANEU, ADIFF, CBC, ALB, BMP, ABOGEL, ABSGEL #### [address] [address] CBCon 08-17-2023 Erythrocyte distribution width (RBC) [Ratio] 12.9 % Normal 11.5-14.5 [facility]) Comment on above: Order Comment: Pre-A dmission Testing Performed By: #### G FR, ANEU, ADIFF, CBC, ALB, BMP, ABOGEL, ABSGEL #### [address] [address] Hematocrit (Bld) [Volume fraction] 38.5 % Low 42.0-52.0 [facility] ([place]) Comment on above: Order Comment: Pre-A dmission Testing Performed By: #### G FR, ANEU, ADIFF, CBC, ALB, BMP, ABOGEL, ABSGEL #### [address] [address] Hgb 12.9 G/dL Low 14.0-18.0 [facility] ([place] Comment on above: Order Comment: Pre-A dmission Testing Performed By: #### G FR, ANEU, ADIFF, CBC, ALB, BMP, ABOGEL, ABSGEL #### [address] [address] MCH (RBC) [Entitic mass] 31.5 pg High 27.0-31.2 [facility] ([place]) Comment on above: Order Comment: Pre-A dmission Testing Performed By: #### G FR, ANEU, ADIFF, CBC, ALB, BMP, ABOGEL, ABSGEL #### [address] [address] MCHC 33.6 G/dL Normal 31.8-35.4 [facility] ([place]) Comment on above: Order Comment: Pre-A dmission Testing Performed By: #### G FR, ANEU, ADIFF, CBC, ALB, BMP, ABOGEL, ABSGEL #### [address] [address] MCV (RBC) [Entitic vol] 93.6 fL Normal 80.0-94.0 [facility] ([place]) Comment on above: Order Comment: Pre-A dmission Testing Performed By: #### G FR, ANEU, ADIFF, CBC, ALB, BMP, ABOGEL, ABSGEL #### [address] [address] Platelet 277 10 3/mcL Normal 130-400 [facility] ([place]) Comment on above: Order Comment: Pre-A dmission Testing Performed By: #### G FR, ANEU, ADIFF, CBC, ALB, BMP, ABOGEL, ABSGEL #### [address] [address] Platelet mean volume (Bld) [Entitic vol] 8.7 fL Normal 7.4-10.4 [facility] ([place]) Comment on above: Order Comment: Pre-A dmission Testing Performed By: #### G FR, ANEU, ADIFF, CBC, ALB, BMP, ABOGEL, ABSGEL #### [address] [address] RBC 4.11 10 6/mcL Normal 4.04-6.13 [facility] ([place]) Comment on above: Order Comment: Pre-A dmission Testing Performed By: #### G FR, ANEU, ADIFF, CBC, ALB, BMP, ABOGEL, ABSGEL #### [address] [address] WBC 6.8 10 3/mcL Normal 4.6-10.8 [facility] ([place]) Comment on above: Order Comment: Pre-A dmission Testing Performed By: #### G FR, ANEU, ADIFF, CBC, ALB, BMP, ABOGEL, ABSGEL #### [address] [address] [address] KNEE W/O CONTRAST LEFTon 08-17-2023 CT KNEE W/O CONTRAST LEFT ORIGINAL EXAMINATION: CT OF THE LEFT KNEE WITHOUT CONTRAST08/17/2023 3:[address] of the left knee without contrast TECHNIQUE: Axial images of the knee are obtained with sagittal and coronal reconstructions. Limited axial imaging is also performed through the ipsilateral hip and ankle joints. This exam was performed according to our departmental dose-optimization program which includes automated exposure control, adjustment of the mA and/or kVp according to patient size and/or use of iterative reconstruction technique where applicable. COMPARISON: None HISTORY: ORDERING SYSTEM PROVIDED HISTORY: Reason for Exam: PRIMARY OSTEOARTHRITIS LEFT KNEE, pain in the left knee, robotic knee mapping, FINDINGS: Left knee: There is tricompartment marginal spurring and moderate narrowing of the medial femorotibial compartment. No aggressive bone lesion is seen. Only small knee joint effusion. There is a small medial popliteal cyst. The musculature around the knee shows no atrophy or other significant finding. Hip: Limited axial images through the hip joint. There is no significant contributory abnormality. Mild hip osteoarthritis and trochanteric enthesopathy. Small fat containing left inguinal scrotal hernia. Ankle: Limited axial images of the ankle are also obtained. No aggressive bone lesion or other contributory finding. Achilles enthesopathy of the calcaneus. IMPRESSION: Left knee moderate to severe osteoarthritis. Interpreted by: Raúl King MD Preliminary Report By: Raúl King MD Electronically signed By Raúl Kign MD Dictated Date: 08/17/2023 4:28:34 PM Prelim Date: 08/17/2023 4:31:16 PM Sign Date: 08/17/2023 4:31:16 PM Ordering Provider: ANDRIY Beach [facility] ([place]) LABORATORYOrdered By: Vick Ramsey on 08-17-2023 ABO and Rh group Nom (Bld) Blood group B Rh(D) negative Invalid Interpretation Code AO BB Auto SS Blood group antibody screen Ql Negative ABSC (08/17/23 2:22 PM) Normal AO BB Auto SS LABORATORYOrdered By: dotloop SYSTEM on 08-17-2023 Albumin BCP dye [Mass/Vol] 3.7 G/dL Normal 3.4 - 4.8 G/dL AO ADM SS Basophil, Absolute 0.0 103/mcL Normal 0.0 - 0.2 10^3/mcL AO Workflow SS Basophils/100 WBC (Bld) 0.7 % Normal 0.0 - 2.5 % AO Workflow SS Calcium [Mass/Vol] 8.3 mg/dL Low 8.4 - 10. 2 mg/dL AO ADM SS Chloride [Moles/Vol] 104 mmol/L Normal 98 - 10 7 mmol/L AO ADM SS CO2 [Moles/Vol] 27 mmol/L Normal 23 - 31 mmol/L AO ADM SS Creatinine [Mass/Vol] 0.79 mg/dL Normal 0.70 - 1.30 mg/dL AO ADM SS Electrolyte Balance 10.0 mEq/L Normal 4.0 - 15 .0 mEq/L AO ADM SS Eosinophil, Absolute 0.1 103/mcL Normal 0.0 - 0 .4 10^3/mcL AO Workflow SS Eosinophils/100 WBC (Bld) 1.7 % Normal 0.0 - 7.0 % AO Workflow SS Erythrocyte distribution width (RBC) [Ratio] 12.9 % Normal 11.5 - 14.5 % AO Workflow SS GFR/1.73 sq M.predicted among blacks MDRD (S/P/Bld) [Vol rate/Area] 120 ml/min/1.73sqm Invalid Interpretation Code AO Chemistry S Comment on above: Interpretive Data: GFR Population mean for , Non- Americans Ages 20-29 = 116 mL/min/1.73 sq.m. Ages 30-39 = 107 mL/min/1.73 sq.m. Ages 40-49 = 99 mL/min/1.73 sq.m. Ages 50-59 = 93 mL/min/1.73 sq.m. Ages 60-69 = 85 mL/min/1.73 sq.m. Ages 70+ = 75 mL/min/1.73 sq.m. Chronic Kidney Disease: Less than 60 mL/min/1.73 square meters End Stage Renal Disease: Less than 15 mL/min/1.73 square meters GFR/1.73 sq M.predicted among non-blacks MDRD (S/P/Bld) [Vol rate/Area] 99 ml/min/1.73sqm Invalid Interpretation Code AO Chemistry S Comment on above: Interpretive Data: GFR Population mean for , Non- Americans Ages 20-29 = 116 mL/min/1.73 sq.m. Ages 30-39 = 107 mL/min/1.73 sq.m. Ages 40-49 = 99 mL/min/1.73 sq.m. Ages 50-59 = 93 mL/min/1.73 sq.m. Ages 60-69 = 85 mL/min/1.73 sq.m. Ages 70+ = 75 mL/min/1.73 sq.m. Chronic Kidney Disease: Less than 60 mL/min/1.73 square meters End Stage Renal Disease: Less than 15 mL/min/1.73 square meters Glucose [Mass/Vol] 86 mg/dL Normal 80 - 115 mg/dL AO ADM SS Hematocrit (Bld) [Volume fraction] 38.5 % Low 42.0 - 52.0 % AO Workflow SS Hemoglobin (Bld) [Mass/Vol] 12.9 G/dL Low 14.0 - 18.0 G/dL AO Workflow SS Lymphocyte, Absolute 2.1 103/mcL Normal 0.8 - 3 .9 10^3/mcL AO Workflow SS Lymphocytes/100 WBC (Bld) 30.6 % Normal 10.0 - 50.0 % AO Workflow SS MCH (RBC) [Entitic mass] 31.5 pg High 27.0 - 31.2 pg AO Workflow SS MCHC 33.6 G/dL Normal 31.8 - 35.4 G/dL AO Workflow SS MCV (RBC) [Entitic vol] 93.6 fL Normal 80.0 - 94.0 fL AO Workflow SS Monocyte, Absolute 0.5 103/mcL Normal 0.2 - 1.0 10^3/mcL AO Workflow SS Monocytes/100 WBC (Bld) 7.7 % Normal 1.7 - 13.0 % AO Workflow SS Neutrophil, Absolute 4.0 103/mcL Normal 2.9 - 6 .2 10^3/mcL AO Workflow SS Neutrophils/100 WBC (Bld) 59.3 % Normal 37.0 - 80.0 % AO Workflow SS Platelet mean volume (Bld) [Entitic vol] 8.7 fL Normal 7.4 - 10.4 fL AO Workflow SS Platelets (Bld) [#/Vol] 277 103/mcL Normal 130 - 400 10^3/mcL AO Workflow SS Potassium [Moles/Vol] 4.6 mmol/L Normal 3.5 - 5.1 mmol/L AO ADM SS RBC (Bld) [#/Vol] 4.11 106/mcL Normal 4.04 - 6.1 3 10^6/mcL AO Workflow SS Sodium [Moles/Vol] 141 mmol/L Normal 136 - 145 mmol/L AO ADM SS Urea nitrogen [Mass/Vol] 20 mg/dL High 7 - 18 mg/dL AO ADM SS Urea nitrogen/Creatinine [Mass ratio] 25 ratio Normal 7 - 27 ratio AO ADM SS WBC (Bld) [#/Vol] 6.8 103/mcL Normal 4.6 - 10.8 10^3/mcL AO Workflow SS LABORATORYOrdered By: Tobi John on 08-17-2023 MRSA (PCR) Not Detected 1 (08/17/23 2:22 PM) Normal Not Detected Auto Viro/Sero SS Comment on above: Result Comment: [place] [id number] MRSA PCR Int MRSA DNA not detected by Real-Time Polymerase Chain Reaction (PCR). A negative result may be due to intermittent colonization. Colonization may vary depending on patient treatment, patient status, or exposure to high-risk environments.As with all PCR based in vitro diagnostic tests, extremely low levels of target below the limit of detection of the assay may be detected, but results may not be reproducible. Invalid Interpretation Code Auto Viro/Sero SS MRSAPCRon 08-17-2023 MRSA (PCR) Not detected Normal Not Detected [facility] ([place]) Comment on above: Result Comment: [place] [id number] Performed By: #### G FR, CBC, ADIFF, ANEU, BMP #### [address] [address] MRSA PCR Int [facility] ([place]) Comment on above: Result Comment: MRSA DNA not detected by Real-Time Polymerase Chain Reaction (PCR). A negative result may be due to intermittent colonization. Colonization may vary depending on patient treatment, patient status, or exposure to high-risk environments. As with all PCR based in vitro diagnostic tests, extremely low levels of target below the limit of detection of the assay may be detected, but results may not be reproducible. See Below Performed By: #### G FR, CBC, ADIFF, ANEU, BMP #### [address] [address] ED NOTEon 04-05-2018 ED NOTE HNO ID: [id number] Author: Jannette (Rn) ZARINA Ramachandran Service: (none) Author Type: Registered Nurse Type: ED Notes Filed: 04/05/2018 10:57 AM Note Text: Sling applied to right arm. Use and care of sling inst given. Pt did teach back well. Discharge instructions given via teach back, verbalized good understanding. D/C home with . [facility] ED NOTE HNO ID: [id number] Author: Bhavani Metz Service: (none) Author Type: (none) Type: ED Notes Filed: 04/05/2018 8:34 AM Note Text: Pt stated that he was lifting a 175 lb perfanvil at work and noticed a sharp pain that shot up from the wrist to his bicep on the right arm. Pt has good cap refill, good pulses, and senses are intact. [facility] ED PROV NOTEon 04-05-2018 Protein mass conc HNO ID: [id number] Author: Rhett Palencia III, MD Service: Emergency Medicine Author Type: Physician Type: ED Provider Notes Filed: 04/06/2018 3:41 PM Note Text: ED Provider Note Patient Name: Isidro Grimaldo SERVICE DATE: 04/05/18 History Patient presents with: Arm Pain: Right arm pain after lifting 175 lbs at work HPI This is a 57 year old male who presents for complaints of unilateral R arm pain. Reports he was flexing bicep when he was carrying approximately 175 pounds at work when he heard a snap and had pain and mild deformity in area. Non-painful unless tries to flex at elbow joint. No bony TTP and no other trauma. PAST MEDICAL HISTORY Diagnosis Date - Anomalous atrioventricular excitation - Benign neoplasm of cerebral meninges (HCC) - Esophageal reflux - Other and unspecified hyperlipidemia PAST SURGICAL HISTORY Procedure Laterality Date - COLONOSCOP W/ OR W/O [facility] SPE[facility] Colonoscopy - PAST SURGICAL HISTORY OF brain tumor removal - PAST SURGICAL HISTORY OF 07/23/2002 ganglion cyst wrist removed form left - PAST SURGICAL HISTORY OF 08/12/04 hernia x 3 FAMILY HISTORY Problem Relation Age of Onset - Colon Cancer Father , 50s - Hypertension Mother - Heart Mother IA - other (glaucoma [Other]) Sister Social History Social History Main Topics - Smoking status: Never Smoker - Smokeless tobacco: Never Used - Alcohol use Yes Comment: occasional - Drug use: No - Sexual activity: Not on file ALLERGIES Allergen Reactions - Latex Review of Systems Constitutional: Negative for activity change, appetite change, chills, fatigue and fever. HENT: Negative for congestion, drooling, nosebleeds, sore throat, trouble swallowing and voice change. Eyes: Negative for photophobia and visual disturbance. Respiratory: Negative for cough, chest tightness and shortness of breath. Cardiovascular: Negative for chest pain and palpitations. Gastrointestinal: Negative for abdominal distention, abdominal pain, blood in stool, nausea and vomiting. Endocrine: Negative for polyphagia and polyuria. Genitourinary: Negative for difficulty urinating and hematuria. Musculoskeletal: Positive for myalgias. Negative for arthralgias and neck stiffness. Skin: Negative for color change and pallor. Neurological: Negative for dizziness and facial asymmetry. Psychiatric/Behavior al: Negative for suicidal ideas. Physical Exam BP 149/70 Pulse 71 Temp (Src) 97.9 (Oral) Resp 18 Ht 6' 0 (1.83m) Wt 245 lb (111.1kg) SpO2 95% BMI 33.22 kg/(m2). Physical Exam Constitutional: He appears well-developed and well-nourished. No distress. HENT: Head: Normocephalic and atraumatic. Right Ear: External ear normal. Mouth/Throat: No oropharyngeal exudate. Eyes: Pupils are equal, round, and reactive to light. Right eye exhibits no discharge. Left eye exhibits no discharge. Neck: Normal range of motion. No JVD present. No tracheal deviation present. No thyromegaly present. Cardiovascular: Normal rate, regular rhythm and normal heart sounds. Exam reveals no friction rub. No murmur heard. Pulmonary/Chest: Effort normal. No stridor. No respiratory distress. He has no wheezes. He has no rales. Abdominal: Soft. He exhibits no distension. There is no tenderness. There is no rebound. Musculoskeletal: He exhibits no edema or tenderness. Patient with pain with flexion particularly at elbow joint in bicipital area. Patient with a mild deformity of bicep region. No obvious TTP. Distal NV exam including pulses and motor/sensory intact. Neurological: No cranial nerve deficit. Coordination normal. Skin: No rash noted. He is not diaphoretic. No erythema. No pallor. Diagnostic Testing ED Labs Ordered and Reviewed - No data to display Procedures ED Course / Clinical Impression Clinical Impressions as of Apr 06 1536 Tear of right biceps muscle, initial encounter MDM / Disposition / Plan 57 year old male presents to the ED with pain with flexion. Differential Diagnosis includes but is not limited to: biceps tendonitis vs. Biceps tear Likely biceps tear (partial vs. Complete). Patient placed in a sling, recommended cessation of use until ortho f/u. Given work note and restrictions. SIGNATURE: MD Rhett Victor III, III, MD 04/06/18 1541 Normal [facility] Vital Signs Date Time Vital Sign Value Performing Clinician Drew ibanez 09-14-2023 11:30-0400 Body temperature 98.24 [degF] DR ANDRIY BAER MD [facility] 09-14-2023 11:30-0400 Diastolic Blood Pressure Non-Invasive 70 mm[Hg] DR ANDRIY BAER MD [facility] 09-14-2023 11:30-0400 Heart rate 73 /min DR ANDRIY BAER MD [facility] 09-14-2023 11:30-0400 Reason For Taking VItal Signs DR ANDRIY BAER MD [facility] 09-14-2023 11:30-0400 Respiratory rate 16 /min DR ANDRIY BAER MD [facility] 09-14-2023 11:30-0400 Systolic Blood Pressure Non-Invasive 147 mm[Hg] DR ANDRIY BAER MD [facility] 09-14-2023 06:20-0400 Body temperature 97.52 [degF] DR ANDRIY BAER MD [facility] 09-14-2023 06:20-0400 Diastolic Blood Pressure Non-Invasive 43 mm[Hg] DR ANDRIY BAER MD [facility] 09-14-2023 06:20-0400 Heart rate 65 /min DR ANDRIY BAER MD [facility] 09-14-2023 06:20-0400 Reason For Taking VItal Signs DR ANDRIY BAER MD [facility] 09-14-2023 06:20-0400 Respiratory rate 16 /min DR ANDRIY BAER MD [facility] 09-14-2023 06:20-0400 Systolic Blood Pressure Non-Invasive 118 mm[Hg] DR ANDRIY BAER MD [facility] 09-14-2023 04:37-0400 Body temperature 97.52 [degF] DR ANDRIY BAER MD [facility] 09-14-2023 04:37-0400 Diastolic Blood Pressure Non-Invasive 57 mm[Hg] DR ANDRIY BAER MD [facility] 09-14-2023 04:37-0400 Heart rate 78 /min DR ANDRIY BAER MD [facility] 09-14-2023 04:37-0400 Reason For Taking VItal Signs DR ANDRIY BAER MD [facility] 09-14-2023 04:37-0400 Respiratory rate 16 /min DR ANDRIY BAER MD [facility] 09-14-2023 04:37-0400 Systolic Blood Pressure Non-Invasive 122 mm[Hg] DR ANDRIY BAER MD [facility] 09-13-2023 13:39-0400 Body height [address] ANDRIY BAER MD [facility] 09-13-2023 13:39-0400 Body weight 108.[address] ANDRIY BAER MD [facility] 09-13-2023 13:39-0400 Body weight 32.76 kg/m2 DR ANDRIY BAER MD [facility] 09-13-2023 12:20-0400 Body temperature 96.98 [degF] DR ANDRIY BAER MD [facility] 09-13-2023 12:15-0400 Respiratory Rate - Anes 0 br/min DR ANDRIY BAER MD [facility] 09-13-2023 12:10-0400 Respiratory Rate - Anes 12 br/min DR ANDRIY BAER MD [facility] 09-13-2023 12:05-0400 Respiratory Rate - Anes 12 br/min DR ANDRIY BAER MD [facility] 09-13-2023 08:20-0400 Body height [address] ANDRIY BAER MD [facility] 09-13-2023 08:20-0400 Body temperature 97.52 [degF] DR ANDRIY BAER MD [facility] 09-13-2023 08:20-0400 Body weight 108.[address] ANDRIY BAER MD [facility] 09-13-2023 08:20-0400 Heart rate 62 /min DR ANDRIY BAER MD [facility] 08-17-2023 13:43-0400 Blood Pressure Cuff Size DR ANDRIY BAER MD [facility] 08-17-2023 13:43-[address] ANDRIY BAER MD [facility] 08-17-2023 13:43-[address] ANDRIY Jimenez [facility] 08-17-2023 13:43-0400 Body height 182.[address] ANDRIY BAER MD [facility] 08-17-2023 13:43-0400 Body weight 106.[address] ANDRIY BAER MD [facility] 08-17-2023 13:43-0400 Body weight 31.75 kg/m2 DR ANDRIY BAER MD [facility] 08-17-2023 13:43-0400 Diastolic Blood Pressure Non-Invasive 84 mm[Hg] DR ANDRIY BAER MD [facility] 08-17-2023 13:43-0400 Heart rate 52 /min DR ANDRIY BAER MD [facility] 08-17-2023 13:43-0400 Systolic Blood Pressure Non-Invasive 160 mm[Hg] DR ANDRIY BAER MD [facility] Encounters Encounter Date Encounter Type Care Provider Facility Start: 09-13-2023 End: 09-14-[address] ANDRIY BAER MD Facility:B Start: 09-13-2023 End: 09-14-[address] ANDRIY BAER MD [facility] Start: 08-17-2023 End: 08-17-[address] ANDRIY BAER MD Facility:[facility] Start: 08-17-2023 End: 08-17-[address] ANDRIY BAER MD [facility] Start: 08-17-2023 End: 08-17-[address] ANDRIY BAER MD [facility] Start: 08-17-2023 End: 08-17-[address] ANDRIY BAER MD Facility:[facility] Start: 04-05-2018 End: 04-05-2018 Emergency department patient visit [facility] Procedures Date Procedure Procedure Detail Performing Clinician Start: 09-13-[address] ANDRIY BAER MD Arthroscopy of knee DR VITO BAER MD Comment on above: RIGHT Inguinal hernia (disorder) Tony BAER MD Comment on above: RIGHT Melanoma in situ DR ANDRIY HECTOR MD Comment on above: FACE Neoplasm (morphologi c abnormality) DR ANDRIY BAER MD Comment on above: 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 Umbilical hernia (disorder) DR ANDRIY BAER MD Immunizations Immunization Date Immunization Notes Care Provider Fa cility 02-27-2021 SARS-CoV-2 mRNA (tozinameran) vaccine DR ANDRIY BAER MD [facility] 06-20-2020 SARS-CoV-2 mRNA (tozinameran) vaccine DR ANDRIY BAER MD [facility] 05-30-2020 SARS-CoV-2 mRNA (tozinameran) vaccine DR ANDRIY BAER MD [facility] Comment on above: Result Comment: 2023: [id number] Payers Date Payer Category Payer Private Health Insurance [id number] 1960 Unknown [id number] 1960 Unknown [id number] 1960 Unknown [id number] Social History Date Type Detail Facility Start: 08-17-2023 End: 09-13-2023 Tobacco smoking status Never smoked tobacco (finding) [facility] Sex Assigned At Sex [facility] Functional Status Date Assessment Result Facility 09-14-2023 Functional Status Mod I [facility] 09-14-2023 Functional Status Front wheeled walker [facility] 09-14-[address] [facility] 09-14-2023 Functional Status Identified as high risk, Fall ID band on, Room located near nursing station, Door open, Non-Slip footwear [facility] 09-14-2023 Functional Status [facility] 09-14-20[address] [facility] 09-13-2023 Functional Status Ladan Ma [facility] 09-13-2023 Functional Status Up to chair Ladan Ho [facility] 09-13-2023 Functional Status Ladan Ma [facility] 09-13-2023 Functional Status Dinner Percent 100 [facility] 09-13-2023 [facility] Status 1st floor bedr oom, 1st floor bathroom [facility] 09-13-2023 Functional Status Ladan Ma [facility] 09-13-2023 Functional Status NPO Status Maintained A [facility]-13-[facility]23 [facility] Sensory Deficits None A [facility] Mental Status Date Assessment Result Facility 09-14-2023 Mental Status Oriented x 4 [facility] 09-13-2023 Mental Status [facility] 09-13-2023 Mental Status [facility] Clinical Notes 08-17-2023 to 09-14-2023 Note Date & Type Note Facility 09-14-2023 Note Date of Service 09/14/2023 Chief Complaint left knee pain Subjective Patient seen and evaluated this morning while up in the recliner. He states that his pain is fairly well-controlled this morning and he has been up multiple times to walk to the bathroom. He has been tolerating a regular diet without any nausea or difficulty swallowing. He has been able to urinate with no problem and states he is passing flatus. He denies any fever, chills, cough, shortness of breath, chest pain, abdominal pain, nausea or dysuria. Lab results and vital signs are unremarkable. From hospitalist perspective, patient is medically optimized for discharge home today. Will defer to primary team to make the final decision on discharge. All questions answered. Objective Vitals and Measurements T: 36.8 C (Oral) TMIN: 36.4 C (Oral) TMAX: 36.8 C (Oral) HR: 73 (Monitored) RR: 16 BP: 147/70 SpO2: 95% Intake and Output 7AM Yesterday to 7AM Today Intake and Output (Last 24 hours) Intake Oral Intake 240.00 Supplement Intake 480.00 Output Urine Count 8.00 Total Summary Total Intake 720.00 Total Output 0.00 Fluid Balance 720.00 Physical Exam General: No acute distress. Patient is alert and awake. Skin: No rash. Skin is warm, dry and intact. HEENT: Head is normocephalic, atraumatic. Pupils are equal, round and reactive. Neck: Supple. No lymphadenopathy, thyromegaly. Lungs: Bilaterally clear but diminished without crepitation or wheeze. Unlabored. Heart: Heart is regular rhythm, S1, S2. No murmurs, gallops or rubs. Abdomen: Abdomen is soft, nontender. Bowels sounds present in all quadrants. Extremities: No clubbing, cyanosis, or edema. Peripheral pulses palpable. No calf tenderness. Left knee dressing dry and intact. Neurological: Patient is awake and alert to person, place and time. Following simple commands, moving all extremities. Weight Dosing Weight: 108.5 kg (09/13/23) Dosing Weight: 108.5 kg (09/13/23) Medications Medications (19) Active Scheduled: (9) acetaminophen 500 mg Tablet 1,000 mg 2 tab(s), Oral, q8h aspirin 81 mg EC 81 mg 1 tab(s), Oral, BIDM docusate sodium 100 mg Capsule 100 mg 1 cap(s), Oral, BID docusate-senna (Senokot S) 50 mg-8.6 mg Tablet 2 tab(s), Oral, BID famotidine 20 mg tablet 20 mg 1 tab(s), Oral, qDay loratadine 10 mg Tablet 10 mg 1 tab(s), Oral, qDay magnesium hydroxide 8% Suspension 30 mL UD 30 mL, Oral, Daily meloxicam 7.5 mg tablet 7.5 mg 1 tab(s), Oral, BIDM multivitamin (Myadec) with minerals Therapeutic Multiple Vitamins with Minerals Tablet 1 tab(s), Oral, qDayM Continuous: (0) PRN: (10) acetaminophen 325 mg Tablet 650 mg 2 tab(s), Oral, q4h diphenhydramine 25 mg tablet 25 mg 1 tab(s), Oral, q6h diphenhyDRAMINE 50 mg/mL (1 mL) INJ 25 mg 0.5 mL, IV Push, q6h ketorolac 30 mg/mL (1 mL) vial 15 mg 0.5 mL, IV Push, q6h morphine 2 mg/mL 1 mL syringe 2 mg 1 mL, IV Push, q1h ondansetron 2 mg/ 1 mL 2 mL INJ 4 mg 2 mL, IV Push, q8h oxycodone 5 mg tablet (immediate release) 5 mg 1 tab(s), Oral, q4h oxycodone 5 mg tablet (immediate release) 10 mg 2 tab(s), Oral, q4h prochlorperazine 10 mg/2 mL vial 5 mg 1 mL, IV Push, q6h sodium biphosphate-sodium phosphate 19 gm-7 gm Enema 133 mL, Rectal, qDay Lab Results 09/13 06:01 WBC: 14.9 H Hgb: 12.1 L Hct: 35.4 L Platelet: 288 Neutrophil %: 86.0 H Glucose Level: 118 H Sodium Level: 139 Potassium Level: 5.1 BUN: 24 H Creatinine Lvl (s): 1.04 Imaging Results and Diagnostics XR Knee 1 or 2 Views Left Result Date: September 13, 2023 Verified By: QUINTIN ALEX MD CLINICAL STATEMENT: IMPRESSION: Expected postsurgical changes status post left total knee arthroplasty. EKG No qualifying data available. Assessment/Plan 1. Arthritis Chronic, s/p left total knee arthroplasty. Management per primary team. Continue PO pain medication and antiemetics. Consult placed to PT and OT to evaluate and treat - following. 2. Back pain Chronic. Resume meloxicam at home dose. 3. Allergies Chronic. Continue claritin daily. DVT prophylaxis with aspirin. Code status: Full Code. Labs, diagnostic test and progress notes reviewed as noted in HPI. Plan of care discussed with patient. All questions answered. Patient verbalizes understanding and is agreeable with plan of care. This case was discussed with collaborating physician, Dr. Aaron Gonzalez. Anticipated Date of Discharge today Time Spent 35 minutes spent reviewing past diagnostic tests, reviewing lab results, vital sign trends, medical history, reviewing medications and ordering home medications, examining patient, discussed plan of care with care team, collaborating with physician, and documenting in chart. Digitally Signed by MIKO JACOBSEN on 09/14/2023 02:18 PM [facility] 09-14-2023 Hospital Discharge instructions Patient Education 09/14/2023 10:51:34 Total Knee Replacement, Care After, [id number] Total Knee Replacement, Care After This sheet gives you information about how to care for yourself after your procedure. Your doctor may also give you more specific instructions. If you have problems or questions, contact your doctor. What can I expect after the procedure? After the procedure, it is common to have: Pain. Swelling. A small amount of blood coming from your cut from surgery (incision). Clear fluid coming from your cut from surgery. Limited movement of your knee. Follow these instructions at home: Medicines Take aawr-pcb-euikhos and prescription medicines only as told by your doctor. If you were prescribed a blood thinner (anticoagulant), take it as told by your doctor. Ask your doctor if the medicine prescribed to you: ?Requires you to avoid driving or using heavy machinery. ?Can cause trouble pooping (constipation). You may need to take steps to prevent or treat trouble pooping: ?Drink enough fluid to keep your pee (urine) pale yellow. ?Take itfl-hgv-ymmziop or prescription medicines. ?Eat foods that are high in fiber. These include beans, whole grains, and fresh fruits and vegetables. ?Limit foods that are high in fat and sugar. These include fried or sweet foods. Bathing Do not take baths, swim, or use a hot tub until your doctor approves. Ask your doctor if you may take showers. You may only be allowed to take sponge baths. Keep your bandage (dressing) dry until your doctor says it can be taken off. Incision care and drain care Follow instructions from your doctor about how to take care of your cut from surgery. Make sure you: ?Wash your hands with soap and water before and after you change your bandage. If you cannot use soap and water, use hand medical territory manager. ?Change your bandage as told by your doctor. ?Leave stitches (sutures), skin glue, or skin tape (adhesive) strips in place. They may need to stay in place for 2 weeks or longer. If tape strips get loose and curl up, you may trim the loose edges. Do not remove tape strips completely unless your doctor says it is okay. Check your cut from surgery and your drain site every day for signs of infection. Check for: ?More redness, swelling, or pain. ?More fluid or blood. ?Warmth. ?Pus or a bad smell. If you have a drain, follow instructions from your doctor about caring for it. Managing pain, stiffness, and swelling If told, put ice on your knee. ?Put ice in a plastic bag or use the icing device (cold flow pad or cryocuff) that you were given. Follow your doctor's directions about how to use the icing device. ?Place a towel between your skin and the bag or between your skin and the icing device. ?Leave the ice on for 20 minutes, 2 3 times per day. If told, put heat on your knee before you exercise. Use the heat source that your doctor recommends, such as a moist heat pack or a heating pad. ?Place a towel between your skin and the heat source. ?Leave the heat on for 20 30 minutes. ?Remove the heat if your skin turns bright red. This is very important if you are unable to feel pain, heat, or cold. You may have a greater risk of getting burned. Move your toes often. Raise (elevate) your knee above the level of your heart while you are sitting or lying down. ?Use several pillows to keep your leg straight. ?Do not put a pillow just under the knee. If the knee is bent for a long time, this may make the knee stiff. Wear elastic knee support as told by your doctor. Activity Rest as told by your doctor. Do not sit for a long time without moving. Get up to take short walks every 1 2 hours. This is important. Ask for help if you feel weak or unsteady. Ask your doctor what activities are safe for you. Avoid activities that put stress on your knees. These include running, jumping rope, and jumping jacks. Do not play contact sports until your doctor says it is okay. Do exercises as told by your physical therapist. If you have been sent home with a knee joint motion machine (continuous passive motion machine), use it as told by your doctor. Safety Do not use your leg to support your body weight until your doctor says that you can. Use crutches or a walker as told by your doctor. Do not drive until your doctor says it is okay. Ask your doctor when it is safe to drive. General instructions Do not use any products that contain nicotine or tobacco, such as cigarettes, e-cigarettes, and chewing tobacco. These can delay healing. If you need help quitting, ask your doctor. Wear special socks (compression stockings) as told by your doctor. Tell your doctor if you plan to have dental work. Also: ?Tell your dentist about your joint replacement. ?Ask your doctor if there are instructions you need to follow before dental care and routine cleanings. Keep all follow-up visits as told by your doctor. This is important. Contact a doctor if: You have more redness, swelling, or pain around your cut from surgery or your drain. You have more fluid or blood coming from your cut from surgery or your drain. You have pus or a bad smell coming from your cut from surgery or your drain. Your cut from surgery or your drain area feels warm to the touch. You have a fever. Your cut breaks open. You have knee pain that does not go away. The movement of your knee is getting worse. Your new joint feels loose. Get help right away if you have: Pain in your calf or thigh. Swelling in your calf or thigh. Shortness of breath. Trouble breathing. Chest pain. Summary After the procedure, it is common to have pain and swelling, blood or fluid coming from your cut from surgery, and trouble moving your knee. Follow instructions from your doctor about how to take care of your cut from surgery. Use crutches or a walker as told by your doctor. If you were prescribed a blood thinner, take it as told by your doctor. Keep all follow-up visits as told by your doctor. This is important. This information is not intended to replace advice given to you by your health care provider. Make sure you discuss any questions you have with your health care provider. Document Released: 05/22/2012 Document Revised: 07/09/2019 Document Reviewed: 10/12/2018 [email or web address] Patient Education 2020 [employer] 09/14/2023 07:45:25 5 - [facility] Post-op Instruction 10/2016 (58371) [facility] Post-operative Instructions PLEASE FOLLOW [facility] POST-OP INSTRUCTIONS GIVEN WATCH FOR SIGNS OF INFECTION: call the office ([phone]) if experencing any of the following: (Usually appears 36-48 hours after surgery) Increased temperature (101 degrees Fahrenheit or higher) Redness or swelling Increased uncontrolled pain Foul odor or drainage Calf discomfort Significant swelling Or if having any chest pain, shortness of breath, or difficulty breathing or swallowing call the office or go the nearest Emergency Room. If you have any questions, please call your doctor at the number listed on your follow up instructions. Form: 338A ([id number]) R: 07/18 Follow Up Care 08/12/2023 13:30:46 With:[facility] Address: [address] [place] [phone] When:09/16/2023 13:30:00 Comments:This is your first physical therapy appointment. Follow-up as scheduled. With:JAZZMINE AMARO PA-C, Orthopedic Address: [facility] [address] [phone]- When:09/28/2023 15:15:00 Comments:This is your post-op appointment. Follow-up as scheduled. [facility] 09-14-2023 Note Discharge Instructions Thank you for allowing [facility] to assist you with your healthcare needs. The following is important discharge information regarding your hospital visit. Your Care Team Andriy Baer MD Your Diagnosis Allergies Arthritis Back pain Status post total left knee replacement What to do next Follow Up Appointments Follow Up with [facility] When:09/16/2023 01:30 PM EDT Where:[address] [place] [phone] Additional Information: This is your first physical therapy appointment. Follow-up as scheduled. Follow Up with JAZZMINE AMARO PA-C, Orthopedic When:09/28/2023 03:15 PM EDT Where:[facility] [address] [place] [phone] Additional Information: This is your post-op appointment. Follow-up as scheduled. The Following Treatments Have Been Ordered for You Discharge Labs No qualifying data available. Discharge Radiology No qualifying data available. Other Therapies No qualifying data available. Post Acute Orders No qualifying data available. Allergies Latex RASH Medications Please ask your primary doctor or pharmacist before taking any other medication not listed, including over the counter drugs, herbal medications, vitamins and or supplements as they may interact with your home medications. What How Much When Why Instructions Last Dose New acetaminophen (Tylenol) 1,000 Milligram by mouth Three (3) times a day not to exceed 3000 mg/ day New aspirin (aspirin 81 mg oral delayed release tablet) 1 tab(s) by mouth Two (2) times a day Duration: 30 Days Take 81 mg aspirin twice daily with food for 4 weeks postoperatively for DVT prophylaxis. Pickup at [facility]/pharmacy #[id number] New docusate-senna (Senokot S 50 mg-8.6 mg oral tablet) 2 tab(s) by mouth Two (2) times a day Duration: 3 Days Take until first bowel movement, then as needed Pickup at [facility]/pharmacy #3321 New famotidine (Pepcid 20 mg oral tablet) 1 tab(s) by mouth Once a day [facility] New oxyCODONE (oxyCODONE 5 mg oral tablet ( IMMEDIATE release )) See instructions Status post total left knee replacement 1-2 tab(s) Oral q4h, As needed for as needed for pain Pickup at [facility]/pharmacy #3321 Unchanged loratadine (Claritin 10 mg oral tablet) 1 tab(s) by mouth Once a day Unchanged meloxicam (meloxicam 15 mg oral tablet) TAKE 1 TABLET BY MOUTH ONCE DAILY Pharmacy Information [facility]/pharmacy #[id number]: [address] [place], [place] [phone] Please take this list to your next doctor s visit. Bring all medications you take, including over the counter medications, herbals and other supplements with you to your doctor s visit. Patients and families are reminded to discard old lists and to update any records with all medication providers or retail pharmacies. Medication Leaflets aspirin (oral) ( pir in) Aspi-Cor, Sowmya Plus, Durlaza, Ecotrin, Miniprin, Vazalore What is the most important information I should know about aspirin? Aspirin can cause Tanna's syndrome, a serious and sometimes fatal condition in children. What is aspirin? Aspirin is a salicylate (em-CJX-zo-ate) that is used to treat pain, and reduce fever or inflammation. Aspirin is sometimes used to treat or prevent heart attacks, strokes, and chest pain (angina). Aspirin should be used for these conditions only under the supervision of a doctor. Aspirin may also be used for purposes not listed in this medication guide. What should I discuss with my healthcare provider before taking aspirin? Using aspirin in a child or teenager with flu symptoms or chickenpox can cause a serious or fatal condition called Tanna's syndrome. You should not use aspirin if you are allergic to it, or if you have: a recent history of stomach or intestinal bleeding; a bleeding disorder such as hemophilia; or if you have ever had an asthma attack or severe allergic reaction after taking aspirin or an NSAID (non-steroidal anti-inflammatory drug). Tell your doctor if you have ever had: asthma or seasonal allergies; stomach ulcers; liver disease; kidney disease; a bleeding or blood clotting disorder; gout; or heart disease, high blood pressure, or congestive heart failure. Taking aspirin during late may cause bleeding in the mother or the baby during delivery. Tell your doctor if you are or plan to become . You should not breastfeed while using this medicine. How should I take aspirin? Use exactly as directed on the label, or as prescribed by your doctor. Always follow directions on the medicine label about giving aspirin to a child. Take with food if aspirin upsets your stomach. You must chew the chewable tablet before you swallow it. Do not crush, chew, break, or open an enteric-coated or delayed/extended-release pill. Swallow it whole. Tell your doctor if you have a planned surgery. Store at room temperature away from moisture and heat. Do not use aspirin if you smell a strong vinegar odor in the aspirin bottle. The medicine may no longer be effective. What happens if I miss a dose? Aspirin is used when needed. If you are on a dosing schedule, skip any missed dose. Do not use two doses at one time. What happens if I overdose? Seek emergency medical attention or call the Poison Help line at . Overdose may cause stomach pain, vomiting, diarrhea, vision or hearing problems, fast or slow breathing, or confusion. What should I avoid while taking aspirin? Avoid alcohol. Heavy drinking can increase your risk of stomach bleeding. Avoid taking ibuprofen if you take aspirin to prevent stroke or heart attack. Ibuprofen can make aspirin less effective in protecting your heart and blood vessels. Ask your doctor how far apart your doses should be. Ask a doctor or pharmacist before using other medicines for pain, fever, swelling, or cold/flu symptoms. They may contain ingredients similar to aspirin (such as magnesium salicylate, ibuprofen, ketoprofen, or naproxen). What are the possible side effects of aspirin? Get emergency medical help if you have signs of an allergic reaction: hives; difficult breathing; swelling of your face, lips, tongue, or throat. Stop using aspirin and call your doctor at once if you have: ringing in your ears, confusion, hallucinations, rapid breathing, seizure (convulsions); severe nausea, vomiting, or stomach pain; bloody or tarry stools, coughing up blood or vomit that looks like coffee grounds; fever lasting longer than 3 days; or swelling, or pain lasting longer than 10 days. Common side effects may include: upset stomach, heartburn; drowsiness; or mild headache. This is not a complete list of side effects and others may occur. Call your doctor for medical advice about side effects. You may report side effects to FDA at 3-219-GZY-1810. What other drugs will affect aspirin? Ask your doctor before using aspirin if you take an antidepressant. Taking certain antidepressants with aspirin may cause you to bruise or bleed easily. Ask a doctor or pharmacist before using aspirin with any other medications, especially: a blood thinner (warfarin, Coumadin, Jantoven), or other medication used to prevent blood clots; or other salicylates such as Nuprin Backache Caplet, Kaopectate, KneeRelief, Pamprin Cramp Formula, Pepto-Bismol, Tricosal, Trilisate, and others. This list is not complete. Other drugs may affect aspirin, including prescription and qoog-csr-uurnise medicines, vitamins, and herbal products. Not all possible drug interactions are listed here. Where can I get more information? Your pharmacist can provide more information about aspirin. Remember, keep this and all other medicines out of the reach of children, never share your medicines with others, and use this medication only for the indication prescribed. Every effort has been made to ensure that the information provided by [employer]. [employer]') is accurate, up-to-date, and complete, but no guarantee is made to that effect. Drug information contained herein may be time sensitive. [employer] information has been compiled for use by healthcare practitioners and consumers in the [place] and therefore [employer] does not warrant that uses outside of the [place] are appropriate, unless specifically indicated otherwise. [employer]'s drug information does not endorse drugs, diagnose patients or recommend therapy. [employer] drug information is an informational resource designed to assist licensed healthcare practitioners in caring for their patients and/or to serve consumers viewing this service as a supplement to, and not a substitute for, the expertise, skill, knowledge and judgment of healthcare practitioners. The absence of a warning for a given drug or drug combination in no way should be construed to indicate that the drug or drug combination is safe, effective or appropriate for any given patient. [employer] does not assume any responsibility for any aspect of healthcare administered with the aid of information [employer] provides. The information contained herein is not intended to cover all possible uses, directions, precautions, warnings, drug interactions, allergic reactions, or adverse effects. If you have questions about the drugs you are taking, check with your doctor, nurse or pharmacist. Copyright 0564-4254 [employer]. Version: 18.01. Revision Date: 10/04/2022. famotidine (oral/injection) (fam [place] ti john) Heartburn Relief, Pepcid, Pepcid AC, Pepcid AC Maximum Strength, Zantac 360 What is the most important information I should know about famotidine? Follow all directions on the label and package. Use exactly as directed. What is famotidine? Famotidine is used to treat and prevent ulcers in the stomach and intestines. It also treats conditions in which the stomach produces too much acid, such as Flower-Stephenson syndrome. Famotidine also treats gastroesophageal reflux disease (GERD) and other conditions in which acid backs up from the stomach into the esophagus, causing heartburn. The Zantac 360 brand of this medicine does not contain ranitidine, a medicine that was withdrawn from market in the [place]. Famotidine may also be used for purposes not listed in this medication guide. What should I discuss with my healthcare provider before taking famotidine? Heartburn can feel like a heart attack. Get emergency medical help if you have chest pain that spreads to your jaw or shoulder. You should not use this medicine if you are allergic to famotidine or similar medicines such as ranitidine (Zantac), cimetidine (Tagamet), or nizatidine (Axid). Ask a doctor or pharmacist if this medicine is safe to use if you have: kidney disease; liver disease; cancer stomach; or long QT syndrome (in you or a family member). Ask a doctor before using this medicine if you are or . How should I take famotidine? Use exactly as directed on the label, or as prescribed by your doctor. Famotidine oral is taken by mouth. Famotidine injection is given in a vein if you are unable to take the medicine by mouth. You may take famotidine oral with or without food. Measure liquid medicine with the supplied syringe or a dose-measuring device (not a kitchen spoon). Most ulcers heal within 4 weeks of famotidine treatment, but it may take up to 8 weeks of using this medicine before your ulcer heals. Keep using the medication as directed. Call your doctor if the condition you are treating with famotidine does not improve, or if it gets worse while using famotidine. Your treatment may also include changes in diet or lifestyle habits. Follow all instructions of your doctor or dietitian. Store at room temperature away from moisture, heat, and light. Do not allow the liquid medicine to freeze. Throw away any unused famotidine liquid that is older than 30 days. What happens if I miss a dose? Take the medicine as soon as you can, but skip the missed dose if it is almost time for your next dose. Do not take two doses at one time. What happens if I overdose? Seek emergency medical attention or call the Poison Help line at . What should I avoid while taking famotidine? Drinking alcohol may increase the risk of damage to your stomach. Avoid taking other stomach acid reducers unless your doctor has told you to. However, you may take an antacid (such as Maalox, Mylanta, Gaviscon, Milk of Magnesia, Rolaids, or Tums) with famotidine. What are the possible side effects of famotidine? Get emergency medical help if you have signs of an allergic reaction: hives; difficult breathing; swelling of your face, lips, tongue, or throat. Stop using famotidine and call your doctor at once if you have: confusion, hallucinations, agitation, lack of energy; a seizure; fast or pounding heartbeats, sudden dizziness (like you might pass out); or unexplained muscle pain, tenderness, or weakness especially if you also have fever, unusual tiredness, and dark colored urine. Some side effects may be more likely in older adults and in people who have severe kidney disease. Common side effects may include: headache; dizziness; or constipation or diarrhea. This is not a complete list of side effects and others may occur. Call your doctor for medical advice about side effects. You may report side effects to FDA at 8-210-TIC-0596. What other drugs will affect famotidine? Famotidine oral can make it harder for your body to absorb other medicines you take by mouth. Tell your doctor if you are taking: cefditoren; dasatinib; delavirdine; fosamprenavir; or tizanidine (if you are taking famotidine liquid). This list is not complete. Other drugs may affect famotidine, including prescription and gtva-aug-daxtghq medicines, vitamins, and herbal products. Not all possible drug interactions are listed here. Where can I get more information? Your doctor or pharmacist can provide more information about famotidine. Remember, keep this and all other medicines out of the reach of children, never share your medicines with others, and use this medication only for the indication prescribed. Every effort has been made to ensure that the information provided by [employer]. [employer]') is accurate, up-to-date, and complete, but no guarantee is made to that effect. Drug information contained herein may be time sensitive. [employer] information has been compiled for use by healthcare practitioners and consumers in the [place] and therefore [employer] does not warrant that uses outside of the [place] are appropriate, unless specifically indicated otherwise. [employer] drug information does not endorse drugs, diagnose patients or recommend therapy. [employer] drug information is an informational resource designed to assist licensed healthcare practitioners in caring for their patients and/or to serve consumers viewing this service as a supplement to, and not a substitute for, the expertise, skill, knowledge and judgment of healthcare practitioners. The absence of a warning for a given drug or drug combination in no way should be construed to indicate that the drug or drug combination is safe, effective or appropriate for any given patient. [facility] does not assume any responsibility for any aspect of healthcare administered with the aid of information [facility] provides. The information contained herein is not intended to cover all possible uses, directions, precautions, warnings, drug interactions, allergic reactions, or adverse effects. If you have questions about the drugs you are taking, check with your doctor, nurse or pharmacist. Copyright [employer]. Version: . Revision Date: 10/04/2022. docusate and senna (DOK ana sate and SEN a) Colace 2-in-1, Senexon-S, Senna Plus, Senna S, Senna-Time S, Senokot S, SenoSol-SS, Stool Softener + Stimulant Laxative, Stool Softener with Laxative What is the most important information I should know about docusate and senna? Use exactly as directed on the label, or as prescribed by your doctor. What is docusate and senna? Docusate is a stool softener. Senna is a laxative. Docusate and senna is a combination medicine used to treat occasional constipation. Docusate and senna may also be used for purposes not listed in this medication guide. What should I discuss with my healthcare provider before using docusate and senna? You should not use this medicine if you are allergic to docusate or senna, or if you are also taking mineral oil. Ask a doctor or pharmacist if this medicine is safe to use if you have ever had: nausea or vomiting; stomach pain; a sudden change in bowel habits that lasts for 2 weeks or longer; or an intestinal disorder such as Crohn's disease or ulcerative colitis. Ask a doctor before using this medicine if you are or . Do not give this medicine to a child younger than 2 years old without medical advice. How should I use docusate and senna? Use exactly as directed on the label, or as prescribed by your doctor. Take docusate and senna with a full glass of water. It may be best to take this medicine at night or at bedtime. Docusate and senna should cause you to have a bowel movement within 6 to 12 hours. Do not take docusate and senna for longer than 7 days in a row, unless your doctor tells you to. Call your doctor if your constipation does not improve or if it gets worse after taking docusate and senna. Store at room temperature away from moisture and heat. What happens if I miss a dose? Since docusate and senna is used when needed, you may not be on a dosing schedule. Skip any missed dose if it's almost time for your next dose. Do not use two doses at one time. What happens if I overdose? Seek emergency medical attention or call the Poison Help line at . Overdose symptoms may include nausea, vomiting, stomach pain, or diarrhea. What should I avoid while using docusate and senna? Ask a doctor or pharmacist before using any other laxative or other stool softener that may contain ingredients similar to docusate or senna. What are the possible side effects of docusate and senna? Get emergency medical help if you have signs of an allergic reaction: hives; difficulty breathing; swelling of your face, lips, tongue, or throat. Stop using docusate and senna and call your doctor at once if you have: rectal bleeding; severe stomach pain, nausea, vomiting; or no bowel movement. Common side effects may include: gas, bloating; diarrhea; or mild nausea. This is not a complete list of side effects and others may occur. Call your doctor for medical advice about side effects. You may report side effects to FDA at 9-157-WRN-7439. What other drugs will affect docusate and senna? Other drugs may affect docusate and senna, including prescription and gonj-vpq-pagvxfm medicines, vitamins, and herbal products. Tell your doctor about all your current medicines and any medicine you start or stop using. Where can I get more information? Your pharmacist can provide more information about docusate and senna. Remember, keep this and all other medicines out of the reach of children, never share your medicines with others, and use this medication only for the indication prescribed. Every effort has been made to ensure that the information provided by [employer]. [employer]') is accurate, up-to-date, and complete, but no guarantee is made to that effect. Drug information contained herein may be time sensitive. [employer] information has been compiled for use by healthcare practitioners and consumers in the [place] and therefore [employer] does not warrant that uses outside of the [place] are appropriate, unless specifically indicated otherwise. [employer] drug information does not endorse drugs, diagnose patients or recommend therapy. [employer] drug information is an informational resource designed to assist licensed healthcare practitioners in caring for their patients and/or to serve consumers viewing this service as a supplement to, and not a substitute for, the expertise, skill, knowledge and judgment of healthcare practitioners. The absence of a warning for a given drug or drug combination in no way should be construed to indicate that the drug or drug combination is safe, effective or appropriate for any given patient. [facility] does not assume any responsibility for any aspect of healthcare administered with the aid of information [employer] provides. The information contained herein is not intended to cover all possible uses, directions, precautions, warnings, drug interactions, allergic reactions, or adverse effects. If you have questions about the drugs you are taking, check with your doctor, nurse or pharmacist. Copyright 3302-2586 [facility] [employer]. Version: 5.01. Revision Date: 10/18/2022. oxycodone (ox i KOE done) Oxaydo, OxyCONTIN, Roxicodone, RoxyBond, Xtampza ER What is the most important information I should know about oxycodone? MISUSE OF OPIOID MEDICINE CAN CAUSE ADDICTION, OVERDOSE, OR . Fatal side effects may occur if you also drink alcohol or use other drugs that cause drowsiness or slow breathing. Using opioid medicine during may cause life-threatening withdrawal symptoms in the . What is oxycodone? Oxycodone is an opioid pain medication used to treat moderate to severe pain. Oxycodone is usually given after other treatments did not work or were not tolerated. Extended-release oxycodone is for tzhhda-kmt-gbswf treatment of severe and chronic pain that requires longer treatment. This medicine is not for use on an as-needed basis. Oxycodone may also be used for purposes not listed in this medication guide. What should I discuss with my healthcare provider before taking oxycodone? You should not use oxycodone if you are allergic to it, or if you have severe asthma, breathing problems or a stomach or bowel obstruction (including paralytic ileus). Tell your doctor if you have ever had: other breathing problems, sleep apnea (breathing that stops during sleep); a head injury, brain tumor, high pressure inside the skull, or seizures, drug or alcohol addiction, or mental illness; if you have used an MAO inhibitor in the past 14 days, such as isocarboxazid, linezolid, methylene blue injection, phenelzine, or tranylcypromine; urination problems, problems with your gallbladder, pancreas, thyroid, or adrenal gland; or liver or kidney disease. Most forms of oxycodone are not approved for use in people under 18 years old. The extended-release tablets should not be given to a child younger than 11 years old. Tell your doctor if you also use stimulant medicine, opioid medicine, herbal products, or medicine for depression, mental illness, Parkinson's disease, migraine headaches, serious infections, or prevention of nausea and vomiting. An interaction with oxycodone could cause a serious condition called serotonin syndrome. May harm an unborn baby. Tell your doctor if you are or plan to become . If you use oxycodone during , your baby could be born with life-threatening withdrawal symptoms, and may need medical treatment for several weeks. Do not breastfeed. Oxycodone in breast milk can cause life-threatening side effects in a nursing baby. Long-term oxycodone may affect fertility in men or women. could be harder to achieve while either parent is using this medicine. How should I take oxycodone? Follow the directions on your prescription label and read all medication guides or instruction sheets. Never use oxycodone in larger amounts, or for longer than prescribed. Tell your doctor if you feel an increased urge to use more of this medicine. Never share opioid medicine with another person, especially someone with a history of drug addiction. MISUSE CAN CAUSE ADDICTION, OVERDOSE, OR . Keep the medicine where others cannot get to it. Selling or giving away this medicine is against the law. Never crush a pill or use the liquid to inhale the mixture or inject it into your vein. This could result in . Your dose needs may change if you switch to a different brand, strength, or form of this medicine. Avoid medication errors by using exactly as directed on the label, or as prescribed by your doctor. Stop taking all other fizvbc-rsu-oxool opioid pain medicines when you start taking extended-release oxycodone. Swallow the extended-release forms whole to avoid exposure to a potentially fatal overdose. Do not crush, chew, break, open, or dissolve. Take the extended-release capsules with food. Read and carefully follow the instructions for use on how to prepare and take this medicine if you cannot swallow extended release capsules whole or you use a feeding tube. Ask your doctor or pharmacist if you don't understand these instructions. Measure liquid medicine with the supplied measuring device (not a kitchen spoon). You may be given other medications to help prevent or treat certain side effects. You may have withdrawal symptoms if you stop using oxycodone suddenly. Ask your doctor before stopping the medicine. Store at room temperature away from moisture and heat. Keep your medicine in a place where no one can use it improperly. Do not keep leftover medicine. Just one dose can cause in someone using it accidentally or improperly. Ask your pharmacist about a drug take-back program, or flush the unused medicine down the toilet. What happens if I miss a dose? Since oxycodone is used for pain, you are not likely to miss a dose. Skip any missed dose if it is almost time for your next dose. Do not use two doses at one time. What happens if I overdose? Seek emergency medical attention or call the Poison Help line at . An overdose can be fatal, especially in a child or person using opioid medicine without a prescription. Your doctor may recommend you get naloxone (a medicine to reverse an opioid overdose) and keep it with you at all times. A person caring for you can give the naloxone if you stop breathing or don't wake up. Your caregiver must still get emergency medical help and may need to perform CPR (cardiopulmonary resuscitation) on you while waiting for help to arrive. Anyone can buy naloxone from a pharmacy or local health department. Make sure any person caring for you knows where you keep naloxone and how to use it. What should I avoid while taking oxycodone? Do not drink alcohol or any products that contain alcohol. Dangerous side effects or could occur. Avoid driving or hazardous activity until you know how this medicine will affect you. Dizziness or drowsiness can causing falls, accidents, or severe injuries. Also avoid getting up too fast from a sitting or lying position, or you may feel dizzy. What are the possible side effects of oxycodone? Get emergency medical help if you have signs of an allergic reaction: hives, difficult breathing, swelling of your face, lips, tongue, or throat. Opioid medicine can slow or stop your breathing, and may occur, especially if you drink alcohol or use other drugs that cause drowsiness or slow breathing. A person caring for you should give naloxone and/or seek emergency medical attention if you have slow breathing with long pauses, blue colored lips, or if you are hard to wake up. Call your doctor at once if you have: slow heart rate, weak pulse, fainting, slow breathing (breathing may stop); chest pain, fast or pounding heartbeats; a seizure, extreme drowsiness; or decreased adrenal gland hormones--nausea, vomiting, stomach pain, loss of appetite, feeling tired or light-headed, muscle or joint pain, skin discoloration, craving salty foods. Serious breathing problems may be more likely in older adults and in those who are debilitated or have wasting syndrome or chronic breathing disorders. Seek medical attention right away if you have symptoms of serotonin syndrome, such as: agitation, hallucinations, fever, sweating, shivering, fast heart rate, muscle stiffness, twitching, loss of coordination, nausea, vomiting, or diarrhea. Common side effects may include: sleep problems (insomnia), itching; drowsiness, headache, dizziness, tiredness; or constipation, stomach pain, nausea, vomiting. This is not a complete list of side effects and others may occur. Call your doctor for medical advice about side effects. You may report side effects to FDA at 0-274-PKN-5713. What other drugs will affect oxycodone? You may have a fatal oxycodone overdose if you start or stop using certain medicines. Tell your doctor about all your medications. Tell your doctor about all your medications especially if you use medicine to treat HIV, antibiotic, antifungal medication, or seizure medication. Many other drugs can be dangerous when used with opioid medicine. Tell your doctor if you also use: medicine for allergies, asthma, blood pressure, motion sickness, irritable bowel, or overactive bladder; other opioid medicines, a benzodiazepine sedative like Valium, Klonopin, or Xanax; sleep medicine, muscle relaxers, or other drugs that make you drowsy; or drugs that affect serotonin, such as antidepressants, stimulants, or medicine for migraines or Parkinson's disease. This list is not complete and many other drugs may affect oxycodone. This includes prescription and ieis-upe-eezzifm medicines, vitamins, and herbal products. Not all possible drug interactions are listed here. Where can I get more information? Your doctor or pharmacist can provide more information about oxycodone. Remember, keep this and all other medicines out of the reach of children, never share your medicines with others, and use this medication only for the indication prescribed. Every effort has been made to ensure that the information provided by [employer]. [employer]') is accurate, up-to-date, and complete, but no guarantee is made to that effect. Drug information contained herein may be time sensitive. [employer] information has been compiled for use by healthcare practitioners and consumers in the [place] and therefore [employer] does not warrant that uses outside of the [place] are appropriate, unless specifically indicated otherwise. [employer] drug information does not endorse drugs, diagnose patients or recommend therapy. [employer] drug information is an informational resource designed to assist licensed healthcare practitioners in caring for their patients and/or to serve consumers viewing this service as a supplement to, and not a substitute for, the expertise, skill, knowledge and judgment of healthcare practitioners. The absence of a warning for a given drug or drug combination in no way should be construed to indicate that the drug or drug combination is safe, effective or appropriate for any given patient. [employer] does not assume any responsibility for any aspect of healthcare administered with the aid of information [employer] provides. The information contained herein is not intended to cover all possible uses, directions, precautions, warnings, drug interactions, allergic reactions, or adverse effects. If you have questions about the drugs you are taking, check with your doctor, nurse or pharmacist. Copyright 4436-8269 [employer]. Version: 17.. Revision Date: 04/05/2023. Education Materials Total Knee Replacement, Care After This sheet gives you information about how to care for yourself after your procedure. Your doctor may also give you more specific instructions. If you have problems or questions, contact your doctor. What can I expect after the procedure? After the procedure, it is common to have: Pain. Swelling. A small amount of blood coming from your cut from surgery (incision). Clear fluid coming from your cut from surgery. Limited movement of your knee. Follow these instructions at home: Medicines Take rglu-wyx-gnrszze and prescription medicines only as told by your doctor. If you were prescribed a blood thinner (anticoagulant), take it as told by your doctor. Ask your doctor if the medicine prescribed to you: ? Requires you to avoid driving or using heavy machinery. ? Can cause trouble pooping (constipation). You may need to take steps to prevent or treat trouble pooping: ? Drink enough fluid to keep your pee (urine) pale yellow. ? Take sdxl-sgk-hgyqukv or prescription medicines. ? Eat foods that are high in fiber. These include beans, whole grains, and fresh fruits and vegetables. ? Limit foods that are high in fat and sugar. These include fried or sweet foods. Bathing Do not take baths, swim, or use a hot tub until your doctor approves. Ask your doctor if you may take showers. You may only be allowed to take sponge baths. Keep your bandage (dressing) dry until your doctor says it can be taken off. Incision care and drain care Follow instructions from your doctor about how to take care of your cut from surgery. Make sure you: ? Wash your hands with soap and water before and after you change your bandage. If you cannot use soap and water, use hand medical territory manager. ? Change your bandage as told by your doctor. ? Leave stitches (sutures), skin glue, or skin tape (adhesive) strips in place. They may need to stay in place for 2 weeks or longer. If tape strips get loose and curl up, you may trim the loose edges. Do not remove tape strips completely unless your doctor says it is okay. Check your cut from surgery and your drain site every day for signs of infection. Check for: ? More redness, swelling, or pain. ? More fluid or blood. ? Warmth. ? Pus or a bad smell. If you have a drain, follow instructions from your doctor about caring for it. Managing pain, stiffness, and swelling If told, put ice on your knee. ? Put ice in a plastic bag or use the icing device (cold flow pad or cryocuff) that you were given. Follow your doctor's directions about how to use the icing device. ? Place a towel between your skin and the bag or between your skin and the icing device. ? Leave the ice on for 20 minutes, 2 3 times per day. If told, put heat on your knee before you exercise. Use the heat source that your doctor recommends, such as a moist heat pack or a heating pad. ? Place a towel between your skin and the heat source. ? Leave the heat on for 20 30 minutes. ? Remove the heat if your skin turns bright red. This is very important if you are unable to feel pain, heat, or cold. You may have a greater risk of getting burned. Move your toes often. Raise (elevate) your knee above the level of your heart while you are sitting or lying down. ? Use several pillows to keep your leg straight. ? Do not put a pillow just under the knee. If the knee is bent for a long time, this may make the knee stiff. Wear elastic knee support as told by your doctor. Activity Rest as told by your doctor. Do not sit for a long time without moving. Get up to take short walks every 1 2 hours. This is important. Ask for help if you feel weak or unsteady. Ask your doctor what activities are safe for you. Avoid activities that put stress on your knees. These include running, jumping rope, and jumping jacks. Do not play contact sports until your doctor says it is okay. Do exercises as told by your physical therapist. If you have been sent home with a knee joint motion machine (continuous passive motion machine), use it as told by your doctor. Safety Do not use your leg to support your body weight until your doctor says that you can. Use crutches or a walker as told by your doctor. Do not drive until your doctor says it is okay. Ask your doctor when it is safe to drive. General instructions Do not use any products that contain nicotine or tobacco, such as cigarettes, e-cigarettes, and chewing tobacco. These can delay healing. If you need help quitting, ask your doctor. Wear special socks (compression stockings) as told by your doctor. Tell your doctor if you plan to have dental work. Also: ? Tell your dentist about your joint replacement. ? Ask your doctor if there are instructions you need to follow before dental care and routine cleanings. Keep all follow-up visits as told by your doctor. This is important. Contact a doctor if: You have more redness, swelling, or pain around your cut from surgery or your drain. You have more fluid or blood coming from your cut from surgery or your drain. You have pus or a bad smell coming from your cut from surgery or your drain. Your cut from surgery or your drain area feels warm to the touch. You have a fever. Your cut breaks open. You have knee pain that does not go away. The movement of your knee is getting worse. Your new joint feels loose. Get help right away if you have: Pain in your calf or thigh. Swelling in your calf or thigh. Shortness of breath. Trouble breathing. Chest pain. Summary After the procedure, it is common to have pain and swelling, blood or fluid coming from your cut from surgery, and trouble moving your knee. Follow instructions from your doctor about how to take care of your cut from surgery. Use crutches or a walker as told by your doctor. If you were prescribed a blood thinner, take it as told by your doctor. Keep all follow-up visits as told by your doctor. This is important. This information is not intended to replace advice given to you by your health care provider. Make sure you discuss any questions you have with your health care provider. Document Released: 05/22/2012 Document Revised: 07/09/2019 Document Reviewed: 10/12/2018 [email or web address] Patient Education 2020 [employer] [facility] Post-operative Instructions PLEASE FOLLOW [facility] POST-OP INSTRUCTIONS GIVEN WATCH FOR SIGNS OF INFECTION: call the office ([phone]) if experencing any of the following: (Usually appears 36-48 hours after surgery) Increased temperature (101 degrees Fahrenheit or higher) Redness or swelling Increased uncontrolled pain Foul odor or drainage Calf discomfort Significant swelling Or if having any chest pain, shortness of breath, or difficulty breathing or swallowing call the office or go the nearest Emergency Room. If you have any questions, please call your doctor at the number listed on your follow up instructions. Form: 338A ([id number]) R: 07/18 Additional Information VACCINATE! IT SAVES LIVES! Members of the community who have not yet received the COVID-19 vaccine and would like to receive it can visit one of [facility] vaccine clinics. There are many vaccine clinic locations within the [facility]. For locations and available times, please visit [email or web address] It is important to note that some COVID mobile vaccine clinics are held outdoors and may be canceled in rainy or stormy conditions. To learn more about pediatric vaccinations (ages 5-11), we invite you to visit the [employer] webpage. [email or web address] [email or web address] To learn more about the COVID-19 vaccine, we invite you to visit the CDC website for a list of frequently asked questions.https://www.cdc.gov/bautista virus/2019-ncov/vaccines/faq.html [employer] Patient Portal Access Instructions: Stay connected with your healthcare team and access your personal medical information anytime with the [employer] Patient Portal. Please follow the directions below to create your [employer] account: 1.Access the email account you provided upon registration to the (more content not included)... [facility] 09-14-2023 Note Date of Service September 14, 2023 Subjective The patient was sitting in bed upon examination. Patient denies any chest pain, shortness of breath, dizziness, lightheadedness, nausea or vomiting, or calf pain. No adverse overnight events. Pain has been controlled on medications. Patient states he is doing very well this morning. He has very little pain. We did discuss his postoperative block in detail. Patient has been able to urinate on his own. He has been up walking already. Patient is wishing to go home today. Objective Vitals and Measurements T: 36.4 C (Oral) TMIN: 36.1 C (Temporal Artery) TMAX: 36.8 C (Oral) HR: 78 (Monitored) RR: 16 BP: 122/57 SpO2: 98% HT: 182 cm WT: 108.5 kg BMI: 32.76 Intake and Output 7AM Yesterday to 7AM Today Intake and Output (Last 24 hours) Intake Administration Information 1765. Supplement Intake 240.00 Output Intra-Op EBL 25.00 Urine Count 5.00 Total Summary Total Intake Total Output 25.00 Fluid Balance 1981.84 Physical Exam Vital signs stable, afebrile SCD's and KEVIN Hose in place bilaterally Patient is able to plantarflex and dorsiflex actively Sensation is intact to saphenous, sural, superficial and deep peroneal, and tibial distribution Dressings are clean dry and intact Negative signs and symptoms of DVT, negative Homans bilaterally Weight Dosing Weight: 108.5 kg (09/13/23) Dosing Weight: 108.5 kg (09/13/23) Medications Medications (21) Active Scheduled: (11) acetaminophen 500 mg Tablet 1,000 mg 2 tab(s), Oral, q8h aspirin 81 mg EC 81 mg 1 tab(s), Oral, BIDM bisacodyl 5 mg EC tablet 10 mg 2 tab(s), Oral, Once docusate sodium 100 mg Capsule 100 mg 1 cap(s), Oral, BID docusate-senna (Senokot S) 50 mg-8.6 mg Tablet 2 tab(s), Oral, BID famotidine 20 mg tablet 20 mg 1 tab(s), Oral, qDay loratadine 10 mg Tablet 10 mg 1 tab(s), Oral, qDay magnesium hydroxide 8% Suspension 30 mL UD 30 mL, Oral, Daily meloxicam 7.5 mg tablet 7.5 mg 1 tab(s), Oral, BIDM multivitamin (Myadec) with minerals Therapeutic Multiple Vitamins with Minerals Tablet 1 tab(s), Oral, qDayM ondansetron 2 mg/ 1 mL 2 mL INJ 4 mg 2 mL, IV Push, q8h Continuous: (0) PRN: (10) acetaminophen 325 mg Tablet 650 mg 2 tab(s), Oral, q4h diphenhydramine 25 mg tablet 25 mg 1 tab(s), Oral, q6h diphenhyDRAMINE 50 mg/mL (1 mL) INJ 25 mg 0.5 mL, IV Push, q6h ketorolac 30 mg/mL (1 mL) vial 15 mg 0.5 mL, IV Push, q6h morphine 2 mg/mL 1 mL syringe 2 mg 1 mL, IV Push, q1h ondansetron 2 mg/ 1 mL 2 mL INJ 4 mg 2 mL, IV Push, q8h oxycodone 5 mg tablet (immediate release) 5 mg 1 tab(s), Oral, q4h oxycodone 5 mg tablet (immediate release) 10 mg 2 tab(s), Oral, q4h prochlorperazine 10 mg/2 mL vial 5 mg 1 mL, IV Push, q6h sodium biphosphate-sodium phosphate 19 gm-7 gm Enema 133 mL, Rectal, qDay Lab Results 09/13 06:01 WBC: 14.9 H Hgb: 12.1 L Hct: 35.4 L Platelet: 288 Neutrophil %: 86.0 H Glucose Level: 118 H Sodium Level: 139 Potassium Level: 5.1 BUN: 24 H Creatinine Lvl (s): 1.04 EKG No qualifying data available. Assessment/Plan Allergies Arthritis Back pain 1. Status post robotic assisted left total knee arthroplasty postop day #1 2. Continue pain medications: Tylenol, meloxicam, oxycodone. Do not take any other nonsteroidal anti-inflammatories while on meloxicam/Mobic 3. DVT prophylaxis: Take 81 mg aspirin twice daily with food for 4 weeks postoperatively for DVT prophylaxis. Patient denies past history of DVT or pulmonary embolism. 4. Physical therapy: Weightbearing as tolerated with walker 5. H & H: 12.1/35.4, asymptomatic. Labs have been reviewed and stable 6. Reactive Leukocytosis: currently 14.9, afebrile. Patient did receive decadron intra-operatively. No clinical signs of infection. 7. Encouraged incentive spirometry 8. Continue postoperative medical management per medicine 9. Postoperative constipation: Discussed with the patient to continue stool softener until first bowel movement. After first bowel movement patient can then take as needed. They were also instructed that if they are not able to have a bowel movement within 3 days they are to contact our office for change of medication. Patient voiced understanding. 10. Disposition: Plan will be for discharge home this afternoon as long as patient remains medically stable, tolerates therapy, and pain is adequately controlled. Patient states he did switch his physical therapy appointment and he does have an appointment on Tuesday, September 16, 2023 at [facility] [place]. He will follow-up per postoperative instructions. Patient did initially want his prescriptions E scribed to [facility] in [place] however I did recommend we send it to [facility] due to problems with narcotics and prescriptions at [facility]. I did discuss this with him and his over the phone. He would like his prescriptions E scribed to [facility] in [facility]. Upon discharge patient will contact our office with any concerns or questions. I have reviewed the [employer] Automated Rx Reporting System (OARRS) report for this patient for refill pattern and other prescriber involvement as part of the appropriate surveillance for the provision of acute and chronic controlled medications. The report was requested and reviewed on the date of this entry, and was considered in the prescribing process This dictation was created using voice recognition software. Phonetic and/or grammatical errors may exist. Digitally Signed by JAZZMINE AMARO PA-C on 09/14/2023 07:45 AM [facility] 09-13-2023 Note ORIGINAL EXAMINATION: TWO XRAY VIEWS OF THE LEFT KNEE 09/13/2023 12:51 pm COMPARISON: CT of the knee dated 08/17/2023. HISTORY: ORDERING SYSTEM PROVIDED HISTORY: Reason for Exam: Status Post Arthroplasty FINDINGS: Postsurgical changes are seen status post left total knee arthroplasty. No acute fracture, dislocation or hardware failure is seen. Subcutaneous emphysema is appreciated. No unexpected radiopaque foreign body. IMPRESSION: Expected postsurgical changes status post left total knee arthroplasty. Interpreted by: Quintin Alex MD Preliminary Report By: Quintin Alex MD Electronically signed By Quintin Alex MD Dictated Date: 09/13/2023 1:01:32 PM Prelim Date: 09/13/2023 1:03:18 PM Sign Date: 09/13/2023 1:03:18 PM Ordering Provider: ANDRIY BAER [facility] 09-13-2023 Anesthesiology Consult note Patient: ISIDRO GRIMALDO Age: 63 years Sex: Male : 1960 Associated Diagnoses: None Author: ADRIANO DAVIS APRN-DIESEL MECHANIC HELPER Preoperative Information Time of last food or liquid consumption: 09/13/2023 00:00:00 Anesthesia history Patient's history: negative. Family's history: negative. Review of Systems Ear/Nose/Mouth/Throat: Negative. Respiratory: Negative. Cardiovascular: WPW syndrome. Gastrointestinal: obese. Genitourinary: Negative. Endocrine: Negative. Musculoskeletal: Back pain, OA. Integumentary: Negative. Neurologic: seizure. Health Status Allergies: Allergic Reactions (Selected) Severity Not Documented Latex- Rash., Allergies (1) ActiveSeverityReaction LatexRASH Current medications: (Selected) Inpatient Medications Ordered Betadine 10% topical solution: 17.5 mL, mL/hr, Topical (INT), PREOP pharm LR 1,000 mL: 20 mL/hr, Intravenous, Stop: 09/13/23 23:59:00 EDT Naropin 25 mg + Toradol 15 mg + morphine 2.5 mg + EPINEPHrine 0.3 m mg, 5 mL, mL/hr, Other, PREOP pharm Naropin 25 mg + Toradol 15 mg + morphine 2.5 mg + EPINEPHrine 0.3 m mg, 5 mL, mL/hr, Other, PREOP pharm tranexamic acid 1 g / 100 mL 0.7% NaCl PMX: 1 gram(s), 100 mL, 300 mL/hr, IV Piggyback, AsDirected Documented Medications Documented Claritin 10 mg oral tablet: 10 mg, 1 tab(s), Oral, qDay, 30 tab(s), 2 Refill(s) meloxicam 15 mg oral tablet: TAKE 1 TABLET BY MOUTH ONCE DAILY, Medications (5) Active Scheduled: (4) povidone iodine topical 17.5 mL, Topical (INT), PREOP pharm ropivacaine 25 mg + ketorolac 15 mg + morphine 2.5 mg + epinephrine 0.3 mg 25 mg 5 mL, Other, PREOP pharm ropivacaine 25 mg + ketorolac 15 mg + morphine 2.5 mg + epinephrine 0.3 mg 25 mg 5 mL, Other, PREOP pharm tranexamic acid PMX 1 gram(s) 100 mL, IV Piggyback, AsDirected Continuous: (1) Lactated Ringers 1,000 mL 1,000 mL, Intravenous, 20 mL/hr PRN: (0) Problem list: Medical Back pain / SNOMED CT 1288028290 / Confirmed Brain tumor / SNOMED CT [id number] / Confirmed Preoperative evaluation for tubal ligation / SNOMED CT [id number] / Confirmed, Active Problems (6) Arthritis Back pain Brain tumor Preoperative evaluation for tubal ligation Seizure WPW (Huvgc-Rkmikoxmd-Gghmu syndrome) Histories Past Medical History: No active or resolved past medical history items have been selected or recorded. Family History: Entire family history is negative. Procedure history: Melanoma in situ ([id number]). Comments: 08/17/2023 13:32 Mohini Singh RN FACE Umbilical hernia ([id number]). Arthroscopy of knee ([id number]). Comments: 08/17/2023 13:32 Mohini Singh RN RIGHT Inguinal hernia ([id number]). Comments: 08/17/2023 13:33 Mohini Singh RN RIGHT Tumor ([id number]). 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 Social History: Social & Psychosocial Habits Alcohol 09/13/2023 Use: Never 09/13/2023 Use: Current Type: Beer Frequency: 1-2 times per month Substance Abuse 09/13/2023 Use: Never Tobacco 09/13/2023 Tobacco Use: Never (less than 100 in l 09/13/2023 Tobacco Use: Never (less than 100 in l Home/Environment 09/13/2023 Living situation: Home/Independent Nutrition/Health 09/13/2023 Type of diet: Regular Physical Examination Vital Signs 09/13/2023 11:00 EDT Heart Rate Monitored 63 bpm bpm Respiratory Rate - Anes 13 br/min br/min 09/13/2023 10:55 EDT Heart Rate Monitored 72 bpm bpm Respiratory Rate - Anes 0 br/min br/min Systolic Blood Pressure Non-Invasive 101 mmHg mmHg Diastolic Blood Pressure Non-Invasive 53 mmHg mmHg 09/13/2023 10:52 EDT Systolic Blood Pressure Non-Invasive 123 mmHg mmHg Diastolic Blood Pressure Non-Invasive 64 mmHg mmHg 09/13/2023 10:50 EDT Heart Rate Monitored 84 bpm bpm Respiratory Rate - Anes 0 br/min br/min 09/13/2023 10:45 EDT Respiratory Rate - Anes 0 br/min br/min Systolic Blood Pressure Non-Invasive 158 mmHg mmHg Diastolic Blood Pressure Non-Invasive 90 mmHg mmHg 09/13/2023 10:41 EDT Systolic Blood Pressure Non-Invasive 135 mmHg mmHg Diastolic Blood Pressure Non-Invasive 111 mmHg mmHg 09/13/2023 8:20 EDT Temperature Temporal Artery 36.4 DegC Peripheral Pulse Rate 62 bpm Respiratory Rate 16 br/min Systolic Blood Pressure Non-Invasive 134 mmHg Diastolic Blood Pressure Non-Invasive 98 mmHg [place] Vital Signs (last 24 hrs) Last Charted Temp Oxogfovu73.4 DegC (SEP 12 08:20) Heart Rate Srwnzetrz23 bpm (SEP 12 11:00) ZWC662 mmHg (SEP 12 10:55) DBP53 mmHg (SEP 12 10:55) Measurements from flowsheet : Measurements 09/13/2023 8:20 EDT Height 182 cm Height in inches 71.7 inch(es) Admission Weight 108.5 kg Weight Lbs 238.7 lb G[place]le Body Weight 76.80 kg Admission Body Mass Index 32.76 m2 Pain assessment: Pain Assessment 09/13/2023 9:06 EDT Primary Pain Location Knee Primary Pain Intensity 9 Pain Scale Type 0-10 Pain scale . General: Alert and oriented. Airway: Normal temporomandibular joint mobility. Mallampati classification: II (soft palate, fauces, uvula visible). Head: Normocephalic. Dentition Evaluation: Own teeth. Neck: Supple. Respiratory: Lungs are clear to auscultation. Cardiovascular: Normal rate. Heart Sounds: Normal. Gastrointestinal: Soft. Musculoskeletal Normal range of motion. Integumentary: Intact. Neurologic: Alert, Oriented. Review / Management Results review: No qualifying data available , Lab results 09/13/2023 11:00 EDT Heart Rate Monitored 63 bpm bpm Respiratory Rate - Anes 13 br/min br/min Oxygen Saturation 98 % % tranexamic acid 1 gram(s) gram(s) 09/13/2023 10:55 EDT Heart Rate Monitored 72 bpm bpm Respiratory Rate - Anes 0 br/min br/min Systolic Blood Pressure Non-Invasive 101 mmHg mmHg Diastolic Blood Pressure Non-Invasive 53 mmHg mmHg Oxygen Saturation 93 % % 09/13/2023 10:52 EDT Systolic Blood Pressure Non-Invasive 123 mmHg mmHg Diastolic Blood Pressure Non-Invasive 64 mmHg mmHg 09/13/2023 10:50 EDT Heart Rate Monitored 84 bpm bpm Respiratory Rate - Anes 0 br/min br/min Oxygen Saturation 98 % % 09/13/2023 10:45 EDT Respiratory Rate - Anes 0 br/min br/min Systolic Blood Pressure Non-Invasive 158 mmHg mmHg Diastolic Blood Pressure Non-Invasive 90 mmHg mmHg dexAMETHasone 10 mg mg 09/13/2023 10:44 EDT SN - PP - Body Position Supine Standard Intra-op 09/13/2023 10:41 EDT Systolic Blood Pressure Non-Invasive 135 mmHg mmHg Diastolic Blood Pressure Non-Invasive 111 mmHg mmHg 09/13/2023 10:38 EDT SN - CTm - Anesthesia Start Time Anesthesia Start cefazolin 2 gram(s) gram(s) Sodium Chloride 0.9% 100 mL mL 09/13/2023 10:37 EDT Time Out Procedure Verified Time Out Procedure Site Verified Yes Time Out Procedure Site Marked Yes Time Out Correct Patient Position Yes Consent Form Signed Yes Bedside Procedure Nerve Block Provider #1 Bedside Time Out ADRIANO DAVIS APRN-DIESEL MECHANIC HELPER Provider #2 Bedside Time Out Morelia Evangelista RN NPO Status Maintained Allergy Band on and Verified Yes Patient ID Band on and Verified Yes Anesthesia Consent Signed Yes 09/13/2023 10:25 EDT SN - GCD - Post-operative Diagnosis UNILATERAL PRIMARY OSTEOARTHRITIS LEFT KNEE; VARUS DEFORMITY, NOT ELSEWHERE CLASSIFIED, LEFT KNEE SN - GCD - Case Level Level 6 09/13/2023 10:24 EDT SN - Proc - Anesthesia Type Spinal SN - Proc - Actual Procedure ROBOTIC ASSISTED LEFT TOTAL KNEE ARTHROPLASTY 09/13/2023 10:20 EDT SN - Assess - LOC Alert, Awake SN - Assess - Orientation Oriented X 3 SN - Assess - Post-op Skin Integrity Intact/Dry 09/13/2023 10:20 EDT SN - CAt - Case Attendee SN - CAt - Case Attendee SN - CAt - Case Attendee SN - CAt - Case Attendee SN - CAt - Case Attendee SN - CAt - Case Attendee SN - CAt - Case Attendee SN - CAt - Case Attendee SN - CAt - Case Attendee SN - CAt - Case Attendee SN - CAt - Case Attendee SN - CAt - Case Attendee SN - CAt - Role Performed Primary Surgeon SN - CAt - Role Performed Systems Developer 1 SN - CAt - Role Performed DIESEL MECHANIC HELPER SN - CAt - Role Performed Automobile Body Repairer Helper 1 SN - CAt - Role Performed Scrub 1 SN - CAt - Role Performed Rn Lpn Lvn 09/13/2023 9:18 EDT Able To Drink Order Detail No Able To Sign Consents Order Detail Yes Code Status Order Detail Full code IV Order Detail Yes Dialysis Schedule Order Detail N/A Has Diabetes Order Detail No Isolation Precautions Order Detail None Nurse Collect Order Detail 0 Oxygen Order Detail No Order Detail N/A Prior Valve Replacement Order Detail No Transport Mode Order Detail Bed and Nurse Pie Icer Machine Details Form Pie Icer Machine Details Form 09/13/2023 9:16 EDT Forearm Right 09/13/2023 20 gauge Peripheral IV Activity: Insert new site Peripheral IV Dressing Condition: Clean, Dry, Intact Peripheral IV Dressing Activity: Transparent dressing Peripheral IV Line Status/Patency: Flushes easily, Continuous infusion Peripheral IV Site Condition: No complications Peripheral IV Equipment: Extension set Peripheral IV Number of Attempts: 1 09/13/2023 9:11 EDT SN - Preop - CTm Pt Ready for OR/Proced 09/13/2023 9:11 09/13/2023 9:11 EDT Pre-op Preparation Shave prep done by clippers CHG Preoperative Wash/Wipe Site specific wipe Preop Nasal Swab Povidone-Iodine 09/13/2023 9:06 EDT Primary Pain Location Knee Primary Pain Intensity 9 Pain Scale Type 0-10 Pain scale celecoxib 400 mg mg oxyCODONE 10 mg mg Lactated Ringers Injection Begin Bag 1,000 mL mL 09/13/2023 9:05 EDT Lactated Ringers Injection 1,000 mL mL 09/13/2023 9:04 EDT famotidine 20 mg mg 09/13/2023 9:01 EDT citric acid-sodium citrate Not Done: Not Appropriate at this Time (Not Done) 09/13/2023 8:38 EDT ABO/Rh Interp B NEG ABSC Interp (Gel) Negative ABSC 09/13/2023 8:26 EDT Designated Person #1 We May Share MIRYAM GRIMALDO [phone] Designated Person #1 Relationship Spouse Privacy Restrictions Requested None Status N/A Sensory Deficits None Sleep Apnea Snore Yes Sleep Apnea Tired No Sleep Apnea Obstruction Yes Sleep Apnea Pressure No Sleep Apnea BMI No Sleep Apnea Age Yes Sleep Apnea Neck No Sleep Apnea Gender Yes Sleep Apnea Score 4 Diagnosed With Sleep Apnea No Advanced Directives No - refuses information Infectious Disease Symptoms Patient states no symptoms Infectious Disease Recent Exposure No Alcohol and Drug Use No Employee of Institutional Living No Health Care Employee No History of Exposure to TB No History of Positive Chest X-Ray for TB No History of Positive TB Skin Test No Homeless No Known Immunosuppression No Recent Immigrant No Resident of Institutional Living No Bloody Sputum No Fatigue No Fever No Loss of Appetite No Night Sweats No Persistent Cough > 3 Weeks No Weight Loss No Patient Aware Date/Time Of Surgery Yes Previous Surgery At This Facility No Pre-Op Patient Education NPO after midnight, No jewelry, Responsible Alliance Party, Aware of surgery location, Pre-op education done, 1 bottle CHG wash with instructions given, No ordered medications, Total Joint Replacement/Colorectal Book Given, SSI prevention handout given, Anesthesia block education provided SN - Preprocedure Comments Spoke with patient, Verbalizes/Nonverbally indicates understanding Barriers to Learning None evident Teaching Method Explanation Preferred Spoken Language [place] Preferred Written Language [place] Teaching Evaluation Verbalizes/Nonverbally indicates understanding Total Joint Book Given Yes Safety Brochure Information Reviewed Yes Ladan Doss Video Viewed No Information Given by Patient Patient's Current Physicians Patient's Current Physicians Discharge To, Anticipated Home independently Prev Test Positive/Diagnosis w/COVID-19 Yes Previous COVID-19 Positive Date 2020 Current Quarantine/Isolated any Illness No Any Contact with Sick Animals/Birds No Traveled Anywhere in Last 30 Days No Lost Weight Unintentionally Recently No Eat Poorly Due to Decreased Appetite No Total MST Score 0 N/A Personal Devices, Patient Valuables Glasses Anesthesia/Transfusions Prior anesthesia Admission Note-Nursing Same Day Patient History 09/13/2023 8:20 EDT Height 182 cm Height in inches 71.7 inch(es) Admission Weight 108.5 kg Weight Lbs 238.7 lb Gackle Body Weight 76.80 kg Admission Body Mass Index 32.76 m2 Temperature Temporal Artery 36.4 DegC Peripheral Pulse Rate 62 bpm Respiratory Rate 16 br/min Systolic Blood Pressure Non-Invasive 134 mmHg Diastolic Blood Pressure Non-Invasive 98 mmHg HI Heart Sounds ICU S1S2 Heart Rhythm Regular Dorsalis Pedis Pulse, Left 2+ Normal Posttibial Pulse, Left 2+ Normal Cardiac Rhythm Sinus rhythm Monitoring Lead II Respirations Unlabored Respiratory Pattern Regular Breath Sounds Auscultated Anterior and posterior All Lobes Breath Sounds Clear Oxygen Therapy Room air Oxygen Saturation 97 % Abdomen Description Non-distended, Symmetric, Soft Abdomen Palpation Non-Tender, Soft Bowel Sounds All Quadrants Present Urinary Elimination Voiding, no difficulties Skin Temperature Warm Skin Description Normal for ethnicity Skin Integrity Intact Mucous Membrane Color [place] Skin Moisture General Dry IV Present Present Neurological Symptoms Patient denies Extremity Movement Equal Characteristics of Speech Clear Level of Consciousness Alert EMERITA Yes Strength All Extremities Strong Affect/Behavior Appropriate, Calm, Cooperative Orientation Oriented x 4 Allergies Yes Anesthesia Extension Set Applied Yes Recovery Manager On Yes Consent Form Signed Yes Patient Dressed In Hospital gown, No undergarments Pre-op Preparation Glasses removed CHG Preoperative Wash/Wipe Night before procedure, Day of procedure CHG Skin Prep Completed for Eligible Surgery History & Physical On Chart Yes Obstructive Sleep Apnea Assess Completed Yes Sussy Motor (2) Moves 4 extremities voluntarily or on command Sussy Respirations (2) Spontaneous respiration without support, RR > 10 Sussy Blood Pressure (2) BP 20% above or below preanesthetic level Sussy Pulse (2) Pulse 20% above or below preanesthetic level Sussy Oxygen Saturation (2) 94% or more Sussy Level of Consciousness (2) Fully awake Sussy III Score 12 Belongings At Bedside Glasses, Pants, Shirt, Shoes, Socks, Undergarments, Walker, Other: ICE MACHINE Activity Status ADL Awake NPO Status Maintained Standard Safety ID band on, Allergy Band on, Call device within reach, Bed in low position, Wheels locked, Upper/Half-Length side-rails up, Visitor at bedside, Safety level maintained Demonstrates Correct Call Light Use Yes Allergy Band on and Verified Yes Patient ID Band on and Verified Yes Implants Verified Yes Pacemaker/AICD Verified Yes Site Verified by Patient/Family Yes Blood Consent Signed Yes Last Fluid Intake 09/12/2023 20:00 Last Food Intake 09/12/2023 15:00 09/13/2023 8:18 EDT SN - Preop - CTm Pt in SDS Room 09/13/2023 8:18 . Assessment and Plan [place] [employer]esthesiologists (ASA) physical status classification: Class II. Anesthetic Preoperative Plan Premedication: intravenous. Anesthetic technique: Spinal. Induction: intravenously. Maintenance airway: FM. Postoperative pain management: Per surgeon. Risks discussed: nausea. Informed consent: signed by patient. Digitally Signed by ADRIANO DAVIS on 09/13/2023 11:09 AM [facility] 08-17-2023 Note ORIGINAL EXAMINATION: CT OF THE LEFT KNEE WITHOUT CONTRAST08/17/2023 3:[address] of the left knee without contrast TECHNIQUE: Axial images of the knee are obtained with sagittal and coronal reconstructions. Limited axial imaging is also performed through the ipsilateral hip and ankle joints. This exam was performed according to our departmental dose-optimization program which includes automated exposure control, adjustment of the mA and/or kVp according to patient size and/or use of iterative reconstruction technique where applicable. COMPARISON: None HISTORY: ORDERING SYSTEM PROVIDED HISTORY: Reason for Exam: PRIMARY OSTEOARTHRITIS LEFT KNEE, pain in the left knee, robotic knee mapping, FINDINGS: Left knee: There is tricompartment marginal spurring and moderate narrowing of the medial femorotibial compartment. No aggressive bone lesion is seen. Only small knee joint effusion. There is a small medial popliteal cyst. The musculature around the knee shows no atrophy or other significant finding. Hip: Limited axial images through the hip joint. There is no significant contributory abnormality. Mild hip osteoarthritis and trochanteric enthesopathy. Small fat containing left inguinal scrotal hernia. Ankle: Limited axial images of the ankle are also obtained. No aggressive bone lesion or other contributory finding. Achilles enthesopathy of the calcaneus. IMPRESSION: Left knee moderate to severe osteoarthritis. Interpreted by: Raúl King MD Preliminary Report By: Raúl King MD Electronically signed By Raúl King MD Dictated Date: 08/17/2023 4:28:34 PM Prelim Date: 08/17/2023 4:31:16 PM Sign Date: 08/17/2023 4:31:16 PM Ordering Provider: ANDRIY BAER [facility] Evaluation + Plan note Future Appointments Appointment Date:08/29/2023 01:00:00 PM Scheduled Provider: Location:[facility] Appointment Type:CV CONTACT ACID PLANT OPERATOR [facility] Hospital course Narrative No data available for this section [facility] Hospital Discharge instructions No data available for this section [facility] Progress note No data available for this section [facility] Summary Purpose Family History No Family History Records Found No data available for this section No data available for this section No data available for this section No Family History Records Found Advance Directives No Advanced Directives Records FoundNo Advanced Directives Records Found Additional Source Comments (unrecognized sect ion and content) No Status Records FoundNo Status Records Found INFORMATION SOURCE (unrecogn ized section and content) DATE CREATED AUTHOR 04/16/2018 [facility] DATE CREATED AUTHOR AUTHOR'S YVROSE CENTENO 09/28/2023 [facility] ([place]) Patient Care team informatio n (unrecognized section and content) Care Team Personnel Name: CHARMAINE MARC Member Role: Primary Care Physician Address: Address: [address] [place], [place] [address] GARRIDO [address] Care Team Related Persons Name: NESTOR GRIMALDO Address: Home [address] [place] [address] Care Team Personnel Name: CHARMAINE MARC Member Role: Primary Care Physician Address: Address: [address] [place], [place] [address] GARRIDO [address] Care Team Related Persons Name: NESTOR GRIMALDO Address: Home [address] [place] [address] Care Team Personnel Name: CHARMAINE MARC Member Role: Primary Care Physician Address: Address: [address] [place], [place] [address]ro OTOOLEFly GARRIDO [address] Care Team Related Persons Name: NESTOR GRIMALDO Address: [address] [phone] FOR RECORDS PERTAINING TO PATIENTS WHO ARE OR HAVE BEEN ENROLLED IN A CHEMICAL DEPENDENCY/SUBSTANCEABUSE PROGRAM, SOME INFORMATION MAY BE OMITTED. This clinical summary was aggregated from multiple sources. Caution should be exercised in using it in the provision of clinical care. This summary normalizes information from multiple sources, and as a consequence, information in this document may materially change the coding, format and clinical context of patient data. In addition, data may be omitted in some cases. CLINICAL DECISIONS SHOULD BE BASED ON THE PRIMARY CLINICAL RECORDS. [employer] provides no warranty or guarantee of the accuracy or completeness of information in this document.
[2024-01-06 13:05] LABS: PSA,Total - Annual Screen 1.77 ng/mL (0.00-4.00)
== END | disposition home or self-care (01) ==
LOC: BFHLAB 09:56
PROVIDERS: PCP Family Medicine; Referring Provider Family Medicine; Visit Provider Family Medicine
DX: N40.0 Benign prostatic hyperplasia without lower urinary tract symptoms (principal); Z12.5 Encounter for screening for malignant neoplasm of prostate
CPT/HCPCS: 36415; 84153; G0103

== ENCOUNTER → 2024-08-31 | Outpatient (CLI) | payer OTHER, SELFPAY ==
--- OUTSIDE RECORDS SUMMARY | 2024-08-31 09:19 | XMS RPT_ITS | CCD ---
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, MIKO Zhou Consulting León BAER MD, DR ANDRIY Resendiz Referring Unavailab Stanley Major Attending Unavailable Care Physician, No Primary Primary Care Unava ilable Caitlyn Casanova Referring Unavailable Caitlyn Casanova Attending Unavailable Caitlyn Casanova Primary Care Unavailable Caitlyn Casanova Referring Unavailable Caitlyn Casanova Attending Unavailable Neri Casanovanah Primary Care Unavailable Hayley Cruz Attending Unavailable Care Physician, No Primary Referring Unava ilable Care Physician, No Primary Primary Care Unava ilable Allergies Allergy Classification Reported Allergen(s) Allergy Type Date of Onset Reaction(s) Facility (6 sources) Latex; Translations: [LATEX] Propensity to adverse reactions (disorder) 3 Hives, RASH [facility] Other [facility] Medications Current Medications Medication Drug Class(es) Dates Sig (Normalized) Sig (Original) acetaminophen 1000 mg oral tablet (1 source) Start: 09-14-2023 take 1 tablet by mouth once daily Tylenol Dose : 1,000 mg = 2 tab(s), Oral, TID, not to exceed 3000 mg/day, 0 Refill(s) Start Date: 09/14/23 Status: Ordered acetaminophen 325 mg / HYDROcodone bitartrate 5 mg oral tablet (2 sources) Opioid Agonist Start: 03-02-2023 take 1 tablet by mouth every six hours as needed Hydrocodone-Aceta minophen Active 1 TABLET PO EVERY 6 HOURS NEEDED 10 March 02, 2023 Start: 02-17-2019 End: 02-28-2019 take 1 tablet by mouth every four hours as needed Hydrocodone-Acetaminophen Discontinued 1 TABLET PO EVERY 4 HOURS NEEDED 03 05February 17, 2019 February 28, 2019 12:10am aspirin 81 mg delayed release oral tablet (1 source) Platelet Aggregation Inhibitor, Nonsteroidal Anti-inflammatory Drug Start: 09-14-2023 End: 10-14-2023 take 1 tablet by mouth twice daily aspirin 81 mg oral delayed release tablet Dose : 81 mg = 1 tab(s), Oral, BID, Take 81 mg aspirin twice daily with food for 4 weeks postoperatively for DVT prophylaxis., # 60 tab(s), 0 Refill(s), Pharmacy: [facility]/pharmacy #[id number], 182, cm, 09/13/23 13:39:00 EDT, Height, kg, 09/13/23 13:39:00 EDT, Dosing Weight Start Date: 09/14/23 Stop Date: 10/14/23 Status: Ordered docusate sodium 50 mg / sennosides, assisted 8.6 mg oral tablet (1 source) Start: 09-14-2023 End: 09-17-2023 take 1 tablet by mouth twice daily Senokot S 50 mg-8.6 mg oral tablet Dose = 2 tab(s), Oral, BID, Take until first bowel movement, then as needed, X 3 day(s), # 12 tab(s), 0 Refill(s), Pharmacy: [facility]/pharmacy #[id number], 182, cm, 09/13/23 13:39:00 EDT, Height, kg, 09/13/23 13:39:00 EDT, Dosing Weight Start Date: 09/14/23 Stop Date: 09/17/23 Status: Ordered famotidine 20 mg oral tablet (1 source) Histamine-2 Receptor Antagonist Start: 09-14-2023 Pepcid 20 mg oral tablet Dose : 20 mg = 1 tab(s), Oral, qDay, # 30 tab(s), 0 Refill(s), Pharmacy: [facility]/pharmacy #[id number], 182, cm, 09/13/23 13:39:00 EDT, Height, [...] 0 Refill(s), 09/21/23 7:47:00 AM EDT, Pharmacy: [facility]/pharmacy #[id number], Status post total left knee replacement, 182, cm, 09/13/23 13:39:00 EDT, Height, 108.5, kg, 09/13/23 13:39:00 EDT, Dosing Weight Start Date: 09/14/23 Stop Date: 09/21/23 Status: Ordered predniSONE 20 mg oral tablet (1 source) Start: 03-02-2023 take 60 mg by mouth once daily Prednisone Active 60 MG PO DAILY March 02, 2023 12:00am Completed/Discontinued Medications Medication Drug Class(es) Dates Sig (Normalized) Sig (Original) diazePAM 5 mg oral tablet (1 source) Benzodiazepine Start: End: take 5 mg by mouth every eight hours Diazepam Discontinued 5 MG PO EVERY 8 HOURS February 17, 2019 12:00am March 02, 2023 4:16am methylPREDNISolone 4 mg oral tablet (1 source) Corticosteroid Start: 9 End: 3 Methylprednisolone Discontinued 4 MG PO DIRECTED February 17, 2019 12:00am March 02, 2023 4:16am Problems Problem Classification Problem Date Documented Da te Episodic/Chronic Allergic reactions (1 source) Allergic disposition; Translations: [Allergy, unspecified, initial encounter] Onset: 09-13-2023 Episodic Hyperplasia of prostate (1 source) Benign prostatic hyperplasia without lower urinary tract symptoms; Translations: [Benign prostatic hyperplasia without lower urinary tract symptoms] Onset: 01-26-2024 Chronic Neoplasms of unspecified nature or uncertain behavior (1 source) 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 Osteoarthritis (1 source) Osteoarthritis; Translations: [Unspecified osteoarthritis, unspecified site] Onset: 09-13-2023 Chronic Other connective tissue disease (1 source) Artificial knee joint present; Translations: [Presence of left artificial knee joint] Onset: 09-14-2023 Chronic Spondylosis; intervertebral disc disorders; other back problems (3 sources) Lumbago; Translations: [Pain in right lumbar region of back] Onset: 09-13-2023 03-02-2023 Episodic Sprains and strains (1 source) Strain of muscle, fascia and tendon of other parts of biceps, right arm, initial encounter; Translations: [Strain of muscle, fascia and tendon of other parts of biceps, right arm, initial encounter] Onset: 04-05-2018 Episodic Unclassified (1 source) Patient encounter status 08-29-2023 Unclassified (1 source) Low back pain, unspecified; Translations: [Low back pain, unspecified] Onset: 03-02-2023 Results Test Name Value Interpretation Reference Range Facility PSA,Total - Annual Screenon 01-06-2024 PSA,TOT SCREEN 1.77 ng/mL Normal 0.00-4.00 [facility] Comment on above: Result Comment: This test was performed using the TPSA assay method for the [employer] system. Values obtained with different assay methods cannot be used interchangably. When changing PSA assays in the course of monitoring a patient, additional sequential testing should be carried out to confirm baseline values. Performed By: #### L 501.9910 #### [facility] [place], [address] Lipid Profileon 12-30-2023 Cholesterol [Mass/Vol] 206 mg/dL High 200 [facility] Comment on above: Result Comment: <200 mg/dL Desirable 200-240 mg/dL Borderline >240 mg/dL High Risk Performed By: #### L 500.3400, L500.4100 #### [facility] [address] [place], [address] Cholesterol in HDL [Mass/Vol] 46 mg/dL Normal [facility] Comment on above: Result Comment: The drugs N-Acetylcysteine and Metamizole may falsely depress this assay. Reference Range HDL <40 mg/dL Low HDL Cholesterol HDL >or= 60 mg/dL High HDL Cholesterol Performed By: #### L 500.3400, L500.4100 #### [facility] [address] [place], [address] Cholesterol in LDL [Mass/Vol] 141 mg/dL High 0-130 [facility] Comment on above: Performed By: #### L 500.3400, L500.4100 #### [facility] [address] [place], [address] Cholesterol in VLDL [Mass/Vol] 19 mg/dL Normal 5-40 [facility] Comment on above: Performed By: #### L 500.3400, L500.4100 #### [facility] [address] [place], [address] Triglyceride [Mass/Vol] 93 mg/dL Normal [facility] Comment on above: Result Comment: The drugs N-Acetylcysteine and Metamizole may falsely depress this assay. Serum Triglycerides Reference Interval Normal <150 mg/dL Borderline high 150 - 199 mg/dL High 200 - 499 mg/dL Very High > or = 500 mg/dL Performed By: #### L 500.3400, L500.4100 #### [facility] [address] [place], [address] Liver Profileon 12-30-2023 Albumin [Mass/Vol] 3.7 g/dL Normal 3.2-5.0 [facility] Comment on above: Performed By: #### L 500.3400, L500.4100 #### [facility] [address] [place], [address] ALK P 64 U/L Normal 45-117 [facility] Comment on above: Performed By: #### L 500.3400, L500.4100 #### [facility] [address] [place], [address] ALT [Catalytic activity/Vol] 21 U/L Normal 16-61 [facility] Comment on above: Performed By: #### L 500.3400, L500.4100 #### [facility] [address] [place], [address] AST [Catalytic activity/Vol] 15 U/L Normal 15-37 [facility] Comment on above: Performed By: #### L 500.3400, L500.4100 #### [facility] [address] [place], [address] Bilirubin [Mass/Vol] 1.40 mg/dL High 0.20-1.00 [facility] Comment on above: Result Comment: For patients on eltrombopag therapy, use of Dimension [place] TBIL is not recommended. Performed By: #### L 500.3400, L500.4100 #### [facility] [address] [place], [address] Bilirubin.direct [Mass/Vol] 0.28 mg/dL Normal 0.00-0.30 [facility] Comment on above: Performed By: #### L 500.3400, L500.4100 #### [facility] [address] [place], [address] Globulin (S) [Mass/Vol] 3.3 g/dL Normal 2.2-4.2 [facility] Comment on above: Performed By: #### L 500.3400, L500.4100 #### [facility] [address] [place], [place], [id number] T PROT 7.0 g/dL Normal 6.4-8.2 [facility] Comment on above: Performed By: #### L 500.3400, L500.4100 #### [facility] [address] [place], [place], [id number] .Auto Diffon 09-14-2023 Basophil, Absolute 0.0 10 3/mcL Normal 0.0-0.2 [facility] ([place]) Comment on above: Performed By: #### G FR, CBC, ADIFF, ANEU, BMP #### [address] [address] Basophils/100 WBC (Bld) 0.1 % Normal 0.0-2.5 [facility] ([place]) Comment on above: Performed By: #### G FR, CBC, ADIFF, ANEU, BMP #### [address] [address] Eosinophil, Absolute 0.0 10 3/mcL Normal 0.0-0.4 [facility] ([place]) Comment on above: Performed By: #### G FR, CBC, ADIFF, ANEU, BMP #### [address] [address] Eosinophils/100 WBC (Bld) 0.0 % Normal 0.0-7.0 [facility] ([place]) Comment on above: Performed By: #### G FR, CBC, ADIFF, ANEU, BMP #### [address] [address] Lymphocyte, Absolute 1.3 10 3/mcL Normal 0.8-3.9 [facility] ([place]) Comment on above: Performed By: #### G FR, CBC, ADIFF, ANEU, BMP #### [address] [address] Lymphocytes/100 WBC (Bld) 8.5 % Low 10.0-50.0 [facility] ([place]) Comment on above: Performed By: #### G FR, CBC, ADIFF, ANEU, BMP #### [address] [address] Monocyte, Absolute 0.8 10 3/mcL Normal 0.2-1.0 [facility] ([place]) Comment on above: Performed By: #### G FR, CBC, ADIFF, ANEU, BMP #### [address] [address] Monocytes/100 WBC (Bld) 5.4 % Normal 1.7-13.0 [facility] ([place]) Comment on above: Performed By: #### G FR, CBC, ADIFF, ANEU, BMP #### [address] [address] Neutrophils/100 WBC (Bld) 86.0 % High 37.0-80.0 [facility] ([place]) Comment on above: Performed By: #### G FR, CBC, ADIFF, ANEU, BMP #### [address] [address] .GFRon 09-14-2023 GFR 87 ml/min/1.73sqm Normal [facility] ([place]) Comment on above: Result Comment: GFR Population [...] G FR, CBC, ADIFF, ANEU, BMP #### [address] [address] GFR Non- 72 ml/min/1.73sqm Normal [facility] ([place]) Comment on above: Result Comment: GFR Population [...] G FR, CBC, ADIFF, ANEU, BMP #### [address] [address] .NEUABSon 09-14-2023 Neutrophil, Absolute 12.8 10 3/mcL High 2.9-6.2 [facility] ([place]) Comment on above: Performed By: #### G FR, CBC, ADIFF, ANEU, BMP #### [address] [address] BMPon 09-14-2023 BUN/Creatinine Ratio 23 ratio Normal 7-27 [facility] ([place]) Comment on above: Performed By: #### G FR, CBC, ADIFF, ANEU, BMP #### [address] [address] Calcium [Mass/Vol] 9.2 mg/dL Normal 8.4-10.2 [facility] ([place] Comment on above: Performed By: #### G FR, CBC, ADIFF, ANEU, BMP #### [address] [address] Chloride [Moles/Vol] 103 mmol/L Normal 98-107 [facility] ([place]) Comment on above: Performed By: #### G FR, CBC, ADIFF, ANEU, BMP #### [address] [address] CO2 [Moles/Vol] 26 mmol/L Normal 23-31 [facility] ([place]) Comment on above: Performed By: #### G FR, CBC, ADIFF, ANEU, BMP #### [address] [address] Creatinine [Mass/Vol] 1.04 mg/dL Normal 0.70-1.30 [facility] ([place]) Comment on above: Performed By: #### G FR, CBC, ADIFF, ANEU, BMP #### [address] [address] Electrolyte Balance 10.0 mEq/L Normal 4.0-15.0 [facility] ([place]) Comment on above: Performed By: #### G FR, CBC, ADIFF, ANEU, BMP #### [address] [address] Glucose [Mass/Vol] 118 mg/dL High 80-115 [facility] ([place] Comment on above: Performed By: #### G FR, CBC, ADIFF, ANEU, BMP #### [address] [address] Potassium [Moles/Vol] 5.1 mmol/L Normal 3.5-5.1 [facility] ([place]) Comment on above: Performed By: #### G FR, CBC, ADIFF, ANEU, BMP #### [address] [address] Sodium [Moles/Vol] 139 mmol/L Normal 136-145 [facility] ([place] Comment on above: Performed By: #### G FR, CBC, ADIFF, ANEU, BMP #### [address] [address] Urea nitrogen [Mass/Vol] 24 mg/dL High 7-18 [facility] ([place]) Comment on above: Performed By: #### G FR, CBC, ADIFF, ANEU, BMP #### [address] [address] CBCon 09-14-2023 Erythrocyte distribution width (RBC) [Ratio] 13.3 % Normal 11.5-14.5 [facility] ([place]) Comment on above: Performed By: #### G FR, CBC, ADIFF, ANEU, BMP #### [address] [address] Hematocrit (Bld) [Volume fraction] 35.4 % Low 42.0-52.0 [facility] ([place]) Comment on above: Performed By: #### G FR, CBC, ADIFF, ANEU, BMP #### [address] [address] Hgb 12.1 G/dL Low 14.0-18.0 [facility] ([place]) Comment on above: Performed By: #### G FR, CBC, ADIFF, ANEU, BMP #### [address] [address] MCH (RBC) [Entitic mass] 31.7 pg High 27.0-31.2 [facility] ([place]) Comment on above: Performed By: #### G FR, CBC, ADIFF, ANEU, BMP #### [address] [address] MCHC 34.1 G/dL Normal 31.8-35.4 [facility] ([place]) Comment on above: Performed By: #### G FR, CBC, ADIFF, ANEU, BMP #### [address] [address] MCV (RBC) [Entitic vol] 92.7 fL Normal 80.0-94.0 [facility] ([place]) Comment on above: Performed By: #### G FR, CBC, ADIFF, ANEU, BMP #### [address] [address] Platelet 288 10 3/mcL Normal 130-400 [facility] ([place]) Comment on above: Performed By: #### G FR, CBC, ADIFF, ANEU, BMP #### [address] [address] Platelet mean volume (Bld) [Entitic vol] 8.4 fL Normal 7.4-10.4 [facility] ([place]) Comment on above: Performed By: #### G FR, CBC, ADIFF, ANEU, BMP #### [place] [address] [place], [place] [address] RBC 3.82 10 6/mcL Low 4.04-6.13 [facility] ([place]) Comment on above: Performed By: #### G FR, CBC, ADIFF, ANEU, BMP #### [place] [address] [place], [place] [address] WBC 14.9 10 3/mcL High 4.6-10.8 [facility] ([place]) Comment on above: Performed By: #### G FR, CBC, ADIFF, ANEU, BMP #### [facility] [address] [place], [place] [address] LABORATORYOrdered By: SYSTEM SYSTEM on 09-14-2023 Basophil, [...] 09-14-2023 Magnesium [Mass/Vol] 1.9 mg/dL Normal 1.8-2.4 [facility] ([place]) Comment on above: Performed By: #### G FR, CBC, ADIFF, ANEU, BMP #### [address] [address] ABO/Rh (Gel)on 09-13-2023 ABO/Rh Interp Negative Invalid Interpretation Code [facility] ([place]) Comment on above: Performed By: #### G FR, CBC, ADIFF, ANEU, BMP #### [address] [address] ABS (Gel)on 09-13-2023 ABSC Interp (Gel) Negative Normal [facility] ([place]) Comment on above: Performed By: #### G FR, CBC, ADIFF, ANEU, BMP #### [place] [address] [place], [place] [address] LABORATORYOrdered By: Harrison Zavala on 09-13-2023 ABO [...] 09/13/2023 1:03:18 PM Ordering Provider: ANDRIY BAER Normal [facility] ([place]) .Auto Diffon 08-17-2023 Basophil, Absolute 0.0 10 3/mcL Normal 0.0-0.2 [facility] ([place]) Comment on above: Performed By: #### G FR, ANEU, ADIFF, CBC, ALB, BMP, ABOGEL, ABSGEL #### [place] [place] [id number] [place], [place] [address] Basophils/100 WBC (Bld) 0.7 % Normal 0.0-2.5 [facility] ([place]) Comment on above: Performed By: #### G FR, ANEU, ADIFF, CBC, ALB, BMP, ABOGEL, ABSGEL #### [address] [address] Eosinophil, Absolute 0.1 10 3/mcL Normal 0.0-0.4 [facility] ([place]) Comment on above: Performed By: #### G FR, ANEU, ADIFF, CBC, ALB, BMP, ABOGEL, ABSGEL #### [address] [address] Eosinophils/100 WBC (Bld) 1.7 % Normal 0.0-7.0 [facility] ([place]) Comment on above: Performed By: #### G FR, ANEU, ADIFF, CBC, ALB, BMP, ABOGEL, ABSGEL #### [address] [address] Lymphocyte, Absolute 2.1 10 3/mcL Normal 0.8-3.9 [facility] ([place]) Comment on above: Performed By: #### G FR, ANEU, ADIFF, CBC, ALB, BMP, ABOGEL, ABSGEL #### [address] [address] Lymphocytes/100 WBC (Bld) 30.6 % Normal 10.0-50.0 [facility] ([place]) Comment on above: Performed By: #### G FR, ANEU, ADIFF, CBC, ALB, BMP, ABOGEL, ABSGEL #### [address] [address] Monocyte, Absolute 0.5 10 3/mcL Normal 0.2-1.0 [facility] ([place]) Comment on above: Performed By: #### G FR, ANEU, ADIFF, CBC, ALB, BMP, ABOGEL, ABSGEL #### [address] [address] Monocytes/100 WBC (Bld) 7.7 % Normal 1.7-13.0 [facility] ([place]) Comment on above: Performed By: #### G FR, ANEU, ADIFF, CBC, ALB, BMP, ABOGEL, ABSGEL #### [address] [address] Neutrophils/100 WBC (Bld) 59.3 % Normal 37.0-80.0 [facility] ([place]) Comment on above: Performed By: #### G FR, ANEU, ADIFF, CBC, ALB, BMP, ABOGEL, ABSGEL #### [address] [address] .GFRon 08-17-2023 GFR Non- 99 ml/min/1.73sqm Normal [facility] ([place]) Comment on above: Result Comment: GFR Population [...] G FR, CBC, ADIFF, ANEU, BMP #### [address] [address] GFR 120 ml/min/1.73sqm Normal [facility] ([place]) Comment on above: Result Comment: GFR Population [...] G FR, CBC, ADIFF, ANEU, BMP #### [address] [address] .NEUABSon 08-17-2023 Neutrophil, Absolute 4.0 10 3/mcL Normal 2.9-6.2 [facility] ([place]) Comment on above: Performed By: #### G FR, ANEU, ADIFF, CBC, ALB, BMP, ABOGEL, ABSGEL #### [address] [address] ABO/Rh (Gel)on 08-17-2023 ABO/Rh Interp Negative Invalid Interpretation Code [facility] ([place]) Comment on above: Performed By: #### G FR, CBC, ADIFF, ANEU, BMP #### [address] [address] ABS (Gel)on 08-17-2023 ABSC Interp (Gel) Negative Normal [facility]) Comment on above: Performed By: #### G FR, CBC, ADIFF, ANEU, BMP #### [address] [address] ALBon 08-17-2023 Albumin Level 3.7 G/dL Normal 3.4-4.8 [facility]) Comment on above: Performed By: #### G FR, CBC, ADIFF, ANEU, BMP #### [address] [address] BMPon 08-17-2023 BUN/Creatinine Ratio 25 ratio Normal 7-27 [facility]) Comment on above: Performed By: #### G FR, ANEU, ADIFF, CBC, ALB, BMP, ABOGEL, ABSGEL #### [address] [address] Calcium [Mass/Vol] 8.3 mg/dL Low 8.4-10.2 [facility] ([place] Comment on above: Performed By: #### G FR, ANEU, ADIFF, CBC, ALB, BMP, ABOGEL, ABSGEL #### [address] [address] Chloride [Moles/Vol] 104 mmol/L Normal 98-107 [facility] ([place]) Comment on above: Performed By: #### G FR, ANEU, ADIFF, CBC, ALB, BMP, ABOGEL, ABSGEL #### [address] [address] CO2 [Moles/Vol] 27 mmol/L Normal 23-31 [facility] ([place]) Comment on above: Performed By: #### G FR, ANEU, ADIFF, CBC, ALB, BMP, ABOGEL, ABSGEL #### [address] [address] Creatinine [Mass/Vol] 0.79 mg/dL Normal 0.70-1.30 [facility] ([place]) Comment on above: Performed By: #### G FR, ANEU, ADIFF, CBC, ALB, BMP, ABOGEL, ABSGEL #### [place] [id number] Electrolyte Balance 10.0 mEq/L Normal 4.0-15.0 [facility] ([place]) Comment on above: Performed By: #### G FR, ANEU, ADIFF, CBC, ALB, BMP, ABOGEL, ABSGEL #### [address] [address] Glucose [Mass/Vol] 86 mg/dL Normal 80-115 [facility] [place] Comment on above: Performed By: #### G FR, ANEU, ADIFF, CBC, ALB, BMP, ABOGEL, ABSGEL #### [address] [address] Potassium [Moles/Vol] 4.6 mmol/L Normal 3.5-5.1 [facility] ([place]) Comment on above: Performed By: #### G FR, ANEU, ADIFF, CBC, ALB, BMP, ABOGEL, ABSGEL #### [address] [address] Sodium [Moles/Vol] 141 mmol/L Normal 136-145 [facility] ([place] Comment on above: Performed By: #### G FR, ANEU, ADIFF, CBC, ALB, BMP, ABOGEL, ABSGEL #### [address] [address] Urea nitrogen [Mass/Vol] 20 mg/dL High 7-18 [facility] ([place]) Comment on above: Performed By: #### G FR, ANEU, ADIFF, CBC, ALB, BMP, ABOGEL, ABSGEL #### [address] [address] CBCon 08-17-2023 Erythrocyte distribution width (RBC) [Ratio] 12.9 % Normal 11.5-14.5 [facility] ([place]) Comment on above: Order Comment: Pre-A dmission Testing Performed By: #### G FR, ANEU, ADIFF, CBC, ALB, BMP, ABOGEL, ABSGEL #### [place] [address] Hematocrit (Bld) [Volume fraction] 38.5 % Low 42.0-52.0 [facility] ([place]) Comment on above: Order Comment: Pre-A dmission Testing Performed By: #### G FR, ANEU, ADIFF, CBC, ALB, BMP, ABOGEL, ABSGEL #### [place] [address] Hgb 12.9 G/dL Low 14.0-18.0 [facility] ([place]) Comment on above: Order Comment: Pre-A dmission Testing Performed By: #### G FR, ANEU, ADIFF, CBC, ALB, BMP, ABOGEL, ABSGEL #### [address] [address] MCH (RBC) [Entitic mass] 31.5 pg High 27.0-31.2 [facility] ([place]) Comment on above: Order Comment: Pre-A dmission Testing Performed By: #### G FR, ANEU, ADIFF, CBC, ALB, BMP, ABOGEL, ABSGEL #### [place] [address] MCHC 33.6 G/dL Normal 31.8-35.4 [facility] ([place]) Comment on above: Order Comment: Pre-A dmission Testing Performed By: #### G FR, ANEU, ADIFF, CBC, ALB, BMP, ABOGEL, ABSGEL #### [address] [address] MCV (RBC) [Entitic vol] 93.6 fL Normal 80.0-94.0 [facility] ([place]) Comment on above: Order Comment: Pre-A dmission Testing Performed By: #### G FR, ANEU, ADIFF, CBC, ALB, BMP, ABOGEL, ABSGEL #### [address] [address] Platelet 277 10 3/mcL Normal 130-400 [facility] ([place]) Comment on above: Order Comment: Pre-A dmission Testing Performed By: #### G FR, ANEU, ADIFF, CBC, ALB, BMP, ABOGEL, ABSGEL #### [address] [address] Platelet mean volume (Bld) [Entitic vol] 8.7 fL Normal 7.4-10.4 [facility] ([place]) Comment on above: Order Comment: Pre-A dmission Testing Performed By: #### G FR, ANEU, ADIFF, CBC, ALB, BMP, ABOGEL, ABSGEL #### [address] [address] RBC 4.11 10 6/mcL Normal 4.04-6.13 [facility] ([place]) Comment on above: Order Comment: Pre-A dmission Testing Performed By: #### G FR, ANEU, ADIFF, CBC, ALB, BMP, ABOGEL, ABSGEL #### [address] [address] WBC 6.8 10 3/mcL Normal 4.6-10.8 [facility] ([place]) Comment on above: Order Comment: Pre-A dmission Testing Performed By: #### G FR, ANEU, ADIFF, CBC, ALB, BMP, ABOGEL, ABSGEL #### [address] [address] [address] KNEE W/O CONTRAST LEFTon 08-17-2023 CT [...] 08/17/2023 4:31:16 PM Ordering Provider: ANDRIY BAER [facility] ([place]) LABORATORYOrdered By: Vick Ramsey on 08-17-2023 ABO and Rh group Nom (Bld) Blood group B Rh(D) negative Invalid Interpretation Code AO BB Auto SS Blood group antibody screen Ql Negative ABSC (08/17/23 2:22 PM) Normal AO BB Auto SS LABORATORYOrdered By: SYSTEM SYSTEM on 08-17-2023 Albumin BCP dye [Mass/Vol] [...] Comment on above: [place] [id number] MRSA PCR Int MRSA DNA not detected [...] MRSA (PCR) Not detected Normal Not Detected [facility] ([place]) Comment on above: Result Comment: [place] s [id number] Performed By: #### G FR, CBC, ADIFF, ANEU, BMP #### [address] [address] MRSA PCR Int Normal [facility] ([place]) Comment on above: Result Comment: MRSA DNA [...] G FR, CBC, ADIFF, ANEU, BMP #### [address] [address] Emergency Department Summary on 03-02-2023 Emergency Department Summary [facility] Medical Records Department [address] [place] [address] Emergency Department Summary 03/02/23 MR#: [id number] Acct: [id number] Name: ISIDRO GRIMALDO Rep #: [id number] : 1960 62 From: Stanley Rasmussen MD PCP: Care Physician,No Primary Status:DEP ER Location: ED HPI History of Present Illness Chief Complaint: Back Informant: patient and spouse/S.O. Narrative Narrative: Presents with right-sided lower back pain. Patient's had problems like this couple times in the past. He is actually responded well to steroids. He states yesterday he got out of bed and felt a sharp pain in his lower back. He went to work and he was able to come to work it out and did better. But if he bent in certain ways it caused pain. Occasionally the pain goes down the back of his leg but does not go quite to his knee. No weakness. Patient has no bowel or bladder acute dysfunction. For the last 6 or 8 months he has been having more frequent urination and night but figures this is large prostate and his brother had the same problem. There is no acute change in this. He has had some constipation problems in the past but not having them now. He has not had fevers or chills. No acute trauma. He has never had back surgery. [facility] Medical History Back pain Brain tumor Cancer of skin, face Ossrp-Xayytuhbp-Rfay e (WPW) syndrome Home Medications hydrocodone-acetamin ophen 5-325mg 5mg-325mg 1 tab PO Q6H PRN PRN Pain 3 days #10 TABLETS 03/02/23 [Rx Last Taken Unknown] prednisone 20 mg tablet 60 mg (3 x 20 mg) PO DAILY #15 TABLETS 03/02/23 [Rx Last Taken Unknown] Allergy/AdvReac Type Severity Reaction Status Date / Time latex Allergy Hives Verified 02/17/19 11:31 Surgical History H/O right knee surgery History of hernia surgery Social History Smoking Status: Never smoker ROS ROS ED ROS Narrative A complete review of systems was performed and is negative except as documented in the history of present illness. Some specific details below. Constitutional: No recent fevers or chills. No rigors. Patient has not generally felt ill. ENT: No sinus pressure or pain. No nasal discharge. CV: No chest pain, pressure or aching. No palpitations or irregular beats. Patient has not been presyncopal or syncopal. 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 Respiratory: No trouble breathing. No cough. GI: No abdominal pain. No nausea vomiting diarrhea. No blood in stool. No loss of bowel control. No history of AAA. : No frequency dysuria or hematuria. No incontinence or urinary retention. Also see history of present illness Musculoskeletal: No recent trauma. No swelling. Please see history of present illness. Skin: No rash. No diaphoresis. No vesicles. Neuro: No weakness or numbness. He has pain that will occasionally radiate down the back of the right leg but does not go quite to the knee. No weakness of ambulation. No sensory changes in the extremities. Please see history of present illness also. Endocrine: No polyuria or polydipsia. EXAM Physical Exam Narrative Exam Narrative: CONSTITUTIONAL: Patient is nontoxic in appearance. The patient looks comfortable. Work of breathing looks normal. HEENT: No notable trauma. Mucous membranes moist. No dental infections. EYES: No conjunctival injection. No pallor. NECK: No meningismus. No JVD. CARDIOVASCULAR: Regular rate. Regular rhythm. No notable murmur. No JVD. RESPIRATORY: No respiratory distress. Breathing is unlabored. No wheezes. No rhonchi. No rales. No pain with a deep breath. GASTROINTESTINAL: Not distended. Bowel sounds are normal. No tenderness. No guarding. No rebound. No palpable mass. No bruit. GENITOURINARY: No tenderness over the bladder. No CVA tenderness. MUSCULOSKELETAL: Atraumatic. No peripheral edema. No cord. No tenderness along the deep venous system. No asymmetry. Distal pulses are intact. Patient does have some little very low right paraspinal tenderness. This is not CVA tenderness. This is much lower. But there is no skin changes there. He has only very mild sciatic notch tenderness. NEUROLOGICAL: Patient is alert and oriented. No focal deficit noted. Patient can stand on toes and heels and do squats although that does hurt the back a bit. Patellar reflex is strong and 2+. Achilles reflex 1+ bilaterally. SKIN: No noted rashes. No diaphoresis. No vesicles noted. No notable pallor. PSYCHIATRIC: Patient is calm. Mood is appropriate. Const Vital Signs: 03/02/23 04:09 Temperature 97.3 F L Temperature Source Temporal Pulse Rate 76 Respiratory Rate 15 Blood Pressure 158/85 H Blood Pressure Mean 109 Pu (more content not included)... Normal [facility] ED NOTEon 04-05-2018 ED NOTE HNO ID: [id number] Author: Jannette (Rn) ZARINA Ramachandran Service: (none) Author Type: Registered Nurse Type: ED Notes Filed: 04/05/2018 10:57 AM Note Text: Sling applied to right arm. Use and care of sling inst given. Pt did teach back well. Discharge instructions given via teach back, verbalized good understanding. D/C home with . [facility] ED NOTE HNO ID: [id number] Author: Bhavani Metz Service: (none) Author Type: (none) Type: ED Notes Filed: 04/05/2018 8:34 AM Note Text: Pt stated that he was lifting a 175 lb perfanvil at work and noticed a sharp pain that shot up from the wrist to his bicep on the right arm. Pt has good cap refill, good pulses, and senses are intact. [facility] ED PROV NOTEon 04-05-2018 Protein mass conc HNO ID: [id number] Author: Rhett Palencia III, MD Service: Emergency Medicine Author Type: Physician Type: ED Provider Notes Filed: 04/06/2018 3:41 PM Note Text: ED Provider Note Patient Name: Isidro Grimalod SERVICE DATE: 04/05/18 History Patient presents with: [...] Laterality Date - COLONOSCOP W/ OR W/O [facility] SPEC Colonoscopy - PAST SURGICAL HISTORY OF brain tumor removal - PAST SURGICAL HISTORY OF 07/23/2002 ganglion cyst wrist removed form left - PAST SURGICAL HISTORY OF 08/12/04 hernia x 3 FAMILY HISTORY Problem Relation Age of Onset - Colon Cancer Father , 50s - Hypertension Mother - Heart Mother MA - other (glaucoma [Other]) Sister Social History [...] MD Rhett Victor III, III, MD 04/06/18 1547 [facility] Vital Signs Date Time Vital Sign Value Performing Clinician Facility 09-14-2023 11:30-0400 Body temperature 98.24 [degF] DR ANDRIY BAER MD [facility] 09-14-2023 11:30-0400 Diastolic Blood Pressure Non-Invasive 70 mm[Hg] DR ANDRIY BAER MD [facility] 09-14-2023 11:30-0400 Heart rate 73 /min DR ANDRIY BAER MD [facility] 09-14-2023 11:30-0400 Reason For Taking VItal Signs DR ANDRIY BAER MD [facility] 09-14-2023 11:30-0400 Respiratory rate 16 /min DR ANDRIY BAER MD [facility] 09-14-2023 11:30-0400 Systolic Blood Pressure Non-Invasive 147 mm[Hg] DR ANDRIY BAER MD [facility] 09-14-2023 06:20-0400 Body temperature 97.52 [degF] DR ANDRIY BAER MD [facility] 09-14-2023 06:20-0400 Diastolic Blood Pressure Non-Invasive 43 mm[Hg] DR ANDRIY BAER MD [facility] 09-14-2023 06:20-0400 Heart rate 65 /min DR ANDRIY BAER MD [facility] 09-14-2023 06:20-0400 Reason For Taking VItal Signs DR ANDRIY BAER MD [facility] 09-14-2023 06:20-0400 Respiratory rate 16 /min DR ANDRIY BAER MD [facility] 09-14-2023 06:20-0400 Systolic Blood Pressure Non-Invasive 118 mm[Hg] DR ANDRIY BAER MD [facility] 09-14-2023 04:37-0400 Body temperature 97.52 [degF] DR ANDRIY BAER MD [facility] 09-14-2023 04:37-0400 Diastolic Blood Pressure Non-Invasive 57 mm[Hg] DR ANDRIY BAER MD [facility] 09-14-2023 04:37-0400 Heart rate 78 /min DR ANDRIY BAER MD [facility] 09-14-2023 04:37-0400 Reason For Taking VItal Signs DR ANDRIY BAER MD [facility] 09-14-2023 04:37-0400 Respiratory rate 16 /min DR ANDRIY BAER MD [facility] 09-14-2023 04:37-0400 Systolic Blood Pressure Non-Invasive 122 mm[Hg] DR ANDRIY BAER MD [facility] 09-13-2023 13:39-0400 Body height [address] ANDRIY BAER MD [facility] 09-13-2023 13:39-0400 Body weight 108.[address] ANDRIY BAER MD [facility] 09-13-2023 13:39-0400 Body weight 32.76 kg/m2 DR ANDRIY BAER MD [facility] 09-13-2023 12:20-0400 Body temperature 96.98 [degF] DR ANDRIY BAER MD [facility] 09-13-2023 12:15-0400 Respiratory Rate - Anes 0 br/min DR ANDRIY BAER MD [facility] 09-13-2023 12:10-0400 Respiratory Rate - Anes 12 br/min DR ANDRIY BAER MD [facility] 09-13-2023 12:05-0400 Respiratory Rate - Anes 12 br/min DR ANDRIY BAER MD [facility] 09-13-2023 08:20-0400 Body height [address] ANDRIY BAER MD [facility] 09-13-2023 08:20-0400 Body temperature 97.52 [degF] DR ANDRIY BARE MD [facility] 09-13-2023 08:20-0400 Body weight 108.[address] ANDRIY BAER MD [facility] 09-13-2023 08:20-0400 Heart rate 62 /min DR ANDRIY BAER MD [facility] 08-17-2023 13:43-0400 Blood Pressure Cuff Size DR ANDRIY BAER MD [facility] 08-17-2023 13:43-[address] ANDRIY BAER MD [facility] 08-17-2023 13:43-[address] ANDRIY Jimenez [facility] 08-17-2023 13:43-0400 Body height 182.[address] ANDRIY BAER MD [facility] 08-17-2023 13:43-0400 Body weight 106.[address] ANDRIY BAER MD [facility] 08-17-2023 13:43-0400 Body weight 31.75 kg/m2 DR ANDRIY BAER MD [facility] 08-17-2023 13:43-0400 Diastolic Blood Pressure Non-Invasive 84 mm[Hg] DR ANDRIY BAER MD [facility] 08-17-2023 13:43-0400 Heart rate 52 /min DR ANDRIY BAER MD [facility] 08-17-2023 13:43-0400 Systolic Blood Pressure Non-Invasive 160 mm[Hg] DR ANDRIY BAER MD [facility] 03-02-2023 05:13-0500 Diastolic blood pressure 89 mm[Hg] [facility] 03-02-2023 05:13-0500 Heart rate 78 /min [facility] 03-02-2023 05:13-0500 Respiratory rate 15 /min [facility] 03-02-2023 05:13-0500 SaO2% (BldA) [Mass fraction] 98 % [facility] 03-02-2023 05:13-0500 Systolic blood pressure 126 mm[Hg] [facility] 03-02-2023 04:09-0500 Body height 182.88 cm [facility] 03-02-2023 04:09-0500 Body temperature 97.3 [degF] [facility] Encounters Encounter Date Encounter Type Care Provider Facility Start: 01-20-2024 Encounter for genera l adult medical examination without abnormal findings [facility] Start: 01-06-2024 End: 01-06-2024 ambulatory [facility] Facility:[facility] Start: 12-30-2023 End: 12-30-2023 ambulatory [facility] Facility:[facility] Start: 09-13-2023 End: 09-14-[address] ANDRIY BAER MD Facility:[facility] Start: 09-13-2023 End: 09-14-[address] ANDRIY BAER MD [facility] Start: 08-17-2023 End: 08-17-[address] ANDRIY BAER MD Facility:[facility] Start: 08-17-2023 End: 08-17-[address] ANDRIY BAER MD [facility] Start: 08-17-2023 End: 08-17-[address] ANDRIY BAER MD [facility] Start: 08-17-2023 End: 08-17-[address] ANDRIY BAER MD Facility:[facility] Start: 04-15-2023 ambulatory Hayley Cruz Facility: [facility] Start: 03-02-2023 End: 03-02-2023 Emergency department patient visit [facility] Work Phone: Start: 04-05-2018 End: 04-05-2018 Emergency department patient visit [facility] Procedures Date Procedure Procedure Detail Performing Clinician Start: 09-13-[address] ANDRIY BAER MD Arthroscopy of knee DR VITO BAER MD Comment on above: RIGHT Inguinal hernia (disorder) D R ANDRIY BAER MD Comment on above: RIGHT Melanoma in situ DR ANDRIY HECTOR MD Comment on above: FACE Neoplasm (morphologi c abnormality) DR ANDRIY BAER MD Comment on above: 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 Umbilical hernia (disorder) DR ANDRIY BAER MD Plan of Treatment Date Care Activity Detail Author Start: 03-02-2023 [facility] Patient Education ED Back Pain ( Acute or Chronic) [facility] Work Phone: Patient referral [facility] Work Phone: Immunizations Immunization Date Immunization Notes Care Provider Fa cili 02-27-2021 SARS-CoV-2 mRNA (tozinameran) vaccine DR ANDRIY BAER MD [facility] 06-20-2020 Covid (Pfizer) [facility] 05-30-2020 Covid (Pfizer) [facility] Comment on above: Result Comment: 2023: [id number] Payers Date Payer Category Payer Self-pay [id number] 2012 Private Health Insurance [id number] 1960 Unknown [id number] 2.16.8 [id number] 1960 Unknown [id number] 2.16.8 [id number] 1960 Unknown [id number] 2.16.8 [id number] Unknown [id number] 2.16.8 [id number] Unknown [id number] 2.16.8 [id number] Unknown [id number] 2.16.8 [id number] Unknown [id number] 2.16.8 [id number] Social History Date Type Detail Facility Start: 03-02-2023 Tobacco smoking stat [facility] Unknown if ever smoked [facility] Start: 1960 Sex Assigned At Male W [facility] Start: 08-17-2023 End: 09-13-2023 Tobacco smoking status Never smoked tobacco (finding) [facility] Sex Assigned At Sex [facility] Functional Status Date Assessment Result Facility 09-14-2023 Functional Status Mod I [facility] 09-14-2023 Functional Status Front wheeled walker [facility] 09-14-2023 Functional Status [facility] 09-14-2023 Functional Status Identified as high risk, Fall ID band on, Room located near nursing station, Door open, Non-Slip footwear [facility] 09-14-2023 Functional Status [facility] 09-14-2023 Functional Status [facility] 09-13-2023 Functional Status [facility] 09-13-2023 Functional Status Up to chair [facility] 09-13-2023 Functional Status [facility] 09-13-2023 Functional Status Dinner Percent 100 [facility] 09-13-2023 Functional Status Supervised [facility] 09-13-2023 Functional Status 1st floor bedr oom, 1st floor bathroom [facility] 09-13-2023 [facility]23 Functional Status NPO Status Maintained A [facility] 09-13-2023 Functional Status [facility] 08-17-2023 Functional Status Sensory Deficits None A [facility] Mental Status Date Assessment Result Facility 09-14-2023 Mental Status Oriented x 4 [facility] 09-13-2023 Mental Status [facility] 09-13-2023 Mental Status [facility] Clinical Notes 08-17-2023 to 09-14-2023 Note Date [...] by MIKO JACOBSEN on 09/14/2023 02:18 PM [facility] 09-14-2023 Hospital Discharge instructions Patient Education 09/14/2023 10:51:34 Total Knee Replacement, Care After, Rdsa-mk-Oyfl Total Knee Replacement, Care After This sheet [...] Follow these instructions at home: Medicines Take urxp-uys-nrzgulm and prescription medicines only as told by [...] keep your pee (urine) pale yellow. ?Take oikv-jwm-adxycjs or prescription medicines. ?Eat foods that are [...] cannot use soap and water, use hand milk powder grinder. ?Change your bandage as told by your [...] 05/22/2012 Document Revised: 07/09/2019 Document Reviewed: 10/12/2018 [employer] Patient Education 2020 [employer] 09/14/2023 07:45:25 5 - [facility] Post-op Instruction 10/2016 (22692) [facility] Post-operative Instructions PLEASE FOLLOW [facility] POST-OP INSTRUCTIONS GIVEN WATCH FOR SIGNS OF INFECTION: call the office ([phone]) if experencing any of the following: (Usually [...] on your follow up instructions. Form: 338A (28622) R: 07/18 Follow Up Care 08/12/2023 13:30:46 With:[facility] Address: [address] [place] [id number] [phone] When:09/16/2023 13:30:00 Comments:This is your first physical therapy appointment. Follow-up as scheduled. With:JAZZMINE AMARO PA-C, Orthopedic Address: [facility] [address] [place] [address]- When:09/28/2023 15:15:00 Comments:This is your post-op appointment. Follow-up as scheduled. [facility] 09-14-2023 Note Discharge Instructions Thank you for allowing [facility] to assist you with your healthcare needs. The following is important discharge information regarding your hospital visit. Your Care Team Andriy Baer MD Your Diagnosis Allergies Arthritis Back pain Status post total left knee replacement What to do next Follow Up Appointments Follow Up with [facility] When:09/16/2023 01:30 PM EDT Where:[address] [place] [phone] Additional Information: This is your first physical therapy appointment. Follow-up as scheduled. Follow Up with JAZZMINE AMARO PA-C, Orthopedic When:09/28/2023 03:15 PM EDT Where:[facility] [address] [place] [id number]- Additional Information: This is your post-op appointment. [...] weeks postoperatively for DVT prophylaxis. Pickup at [facility]/pharmacy #3321 New docusate-senna (Senokot S 50 mg-8.6 mg oral tablet) 2 tab(s) by mouth Two (2) times a day Duration: 3 Days Take until first bowel movement, then as needed Pickup at [facility]/pharmacy #3321 New famotidine (Pepcid 20 mg oral tablet) 1 tab(s) by mouth Once a day [facility] New oxyCODONE (oxyCODONE 5 mg oral tablet ( IMMEDIATE release )) See instructions Status post total left knee replacement 1-2 tab(s) Oral q4h, As needed for as needed for pain Pickup at [facility]/pharmacy #3321 Unchanged loratadine (Claritin 10 mg oral tablet) 1 tab(s) by mouth Once a day Unchanged meloxicam (meloxicam 15 mg oral tablet) TAKE 1 TABLET BY MOUTH ONCE DAILY Pharmacy Information [facility]/pharmacy #3321: [address] [place], [place] [id number] [phone] Please take this list to your next [...] What is aspirin? Aspirin is a salicylate (sx-JWA-sb-ate) that is used to treat pain, and [...] may report side effects to FDA at 5-325-AFY-2740. What other drugs will affect aspirin? Ask [...] drugs may affect aspirin, including prescription and xicf-yqi-ewovmje medicines, vitamins, and herbal products. Not all [...] to ensure that the information provided by [employer]. ('[employer]') is accurate, up-to-date, and complete, but no guarantee is made to that effect. Drug information contained herein may be time sensitive. [employer] information has been compiled for use by healthcare practitioners and consumers in the [place] and therefore [employer] does not warrant that uses outside of the [place] are appropriate, unless specifically indicated otherwise. [employer] drug information does not endorse drugs, diagnose patients or recommend therapy. [employer] drug information is an informational resource designed [...] effective or appropriate for any given patient. [facility] does not assume any responsibility for any aspect of healthcare administered with the aid of information [facility] provides. The information contained herein is not intended to cover all possible uses, directions, precautions, warnings, drug interactions, allergic reactions, or adverse effects. If you have questions about the drugs you are taking, check with your doctor, nurse or pharmacist. Copyright 0593-4514 [facility]. Version: 18.. Revision Date: 10/04/2022. famotidine (oral/injection) (fam [place] [...] may report side effects to FDA at 2-348-QST-3347. What other drugs will affect famotidine? Famotidine oral can make it harder for your body to absorb other medicines you take by mouth. Tell your doctor if you are taking: cefditoren; dasatinib; delavirdine; fosamprenavir; or tizanidine (if you are taking famotidine liquid). This list is not complete. Other drugs may affect famotidine, including prescription and iuzg-rcs-lrpnrpj medicines, vitamins, and herbal products. Not all [...] to ensure that the information provided by [employer] ('[employer]') is accurate, up-to-date, and complete, but no guarantee is made to that effect. Drug information contained herein may be time sensitive. [employer] information has been compiled for use by healthcare practitioners and consumers in the [place] and therefore [employer] does not warrant that uses outside of the [place] are appropriate, unless specifically indicated otherwise. [employer] drug information does not endorse drugs, diagnose patients or recommend therapy. [employer] drug information is an informational resource designed [...] effective or appropriate for any given patient. [employer] does not assume any responsibility for any aspect of healthcare administered with the aid of information [employer] provides. The information contained herein is not intended to cover all possible uses, directions, precautions, warnings, drug interactions, allergic reactions, or adverse effects. If you have questions about the drugs you are taking, check with your doctor, nurse or pharmacist. Copyright 1882-6084 [employer]. Version: 20.. Revision Date: 10/04/2022. docusate and senna (DOK [...] may report side effects to FDA at 3-797-SEO-6371. What other drugs will affect docusate and senna? Other drugs may affect docusate and senna, including prescription and ewql-kqt-wzwflka medicines, vitamins, and herbal products. Tell your [...] to ensure that the information provided by [employer]. ('[employer]') is accurate, up-to-date, and complete, but no guarantee is made to that effect. Drug information contained herein may be time sensitive. Gradeable information has been compiled for use by healthcare practitioners and consumers in the [place] and therefore Grade[employer] does not warrant that uses outside of the [place] are appropriate, unless specifically indicated otherwise. [employer] drug information does not endorse drugs, diagnose patients or recommend therapy. [employer] drug information is an informational resource designed [...] effective or appropriate for any given patient. [facility] does not assume any responsibility for any aspect of healthcare administered with the aid of information [facility] provides. The information contained herein is not intended to cover all possible uses, directions, precautions, warnings, drug interactions, allergic reactions, or adverse effects. If you have questions about the drugs you are taking, check with your doctor, nurse or pharmacist. Copyright 5680-1960 [facility] [facility]. Version: 5.01. Revision Date: 10/18/2022. oxycodone (ox [...] were not tolerated. Extended-release oxycodone is for cxhkdg-pfq-vbvnx treatment of severe and chronic pain that [...] by your doctor. Stop taking all other wdiblo-utg-sywji opioid pain medicines when you start taking [...] may report side effects to FDA at 9-317-SSM-4597. What other drugs will affect oxycodone? You [...] may affect oxycodone. This includes prescription and ziiw-qgy-zbeptdg medicines, vitamins, and herbal products. Not all [...] to ensure that the information provided by [employer] ('[employer]') is accurate, up-to-date, and complete, but no guarantee is made to that effect. Drug information contained herein may be time sensitive. Gradeable information has been compiled for use by healthcare practitioners and consumers in the [place] and therefore Gradeable does not warrant that uses outside of the [place] are appropriate, unless specifically indicated otherwise. [employer] drug information does not endorse drugs, diagnose patients or recommend therapy. [employer] drug information is an informational resource designed [...] effective or appropriate for any given patient. [employer] does not assume any responsibility for any aspect of healthcare administered with the aid of information [employer] provides. The information contained herein is not intended to cover all possible uses, directions, precautions, warnings, drug interactions, allergic reactions, or adverse effects. If you have questions about the drugs you are taking, check with your doctor, nurse or pharmacist. Copyright 0889-2709 [employer]. Version: 17.. Revision Date: 04/05/2023. Education Materials [...] Follow these instructions at home: Medicines Take qhjd-ygx-qkivfxp and prescription medicines only as told by [...] your pee (urine) pale yellow. ? Take sbed-nza-awytlbh or prescription medicines. ? Eat foods that [...] cannot use soap and water, use hand milk powder grinder. ? Change your bandage as told by [...] 05/22/2012 Document Revised: 07/09/2019 Document Reviewed: 10/12/2018 [employer] Patient Education 2020 [employer]. [facility] Post-operative Instructions PLEASE FOLLOW [facility] POST-OP INSTRUCTIONS GIVEN WATCH FOR SIGNS OF INFECTION: call the office ([phone]) if experencing any of the following: (Usually [...] on your follow up instructions. Form: 338A 03734) R: 07/18 Additional Information VACCINATE! IT SAVES LIVES! Members of the community who have not yet received the COVID-19 vaccine and would like to receive it can visit one of [facility] vaccine clinics. There are many vaccine clinic locations within the [facility]. For locations and available times, please visit [email or web address] It is important to note that some COVID mobile vaccine clinics are held outdoors and may be canceled in rainy or stormy conditions. To learn more about pediatric vaccinations (ages 5-11), we invite you to visit the [facility] webpage. [email or web address]/pages [email or web address]-Iyyqr-Vvbgskhsiss-Frequently-A sked-Questions.html To learn more about the COVID-19 vaccine, we invite you to visit the CDC website for a list of frequently asked questions.https://www.cdc.gov/bautista virus/2019-ncov/vaccines/faq.html [facility] Patient Portal Access Instructions: Stay connected with your healthcare team and access your personal medical information anytime with the [employer] Patient Portal. Please follow the directions below to create your [facility] account: 1.Access the email account you provided upon registration to the (more content not included)... [facility] 09-14-2023 Note Date of Service [...] Output (Last 24 hours) Intake Administration Information 1766.84 Supplement Intake 240.00 Output Intra-Op EBL 25.00 Urine Count 5.00 Total Summary Total Intake Total Output 25.00 Fluid Balance Physical Exam Vital signs stable, afebrile SCD's [...] appointment on Tuesday, September 16, 2023 at [facility] [place]. He will follow-up per postoperative instructions. Patient did initially want his prescriptions E scribed to [facility] in [place] however I did recommend we send it to [facility] due to problems with narcotics and prescriptions at [facility]. I did discuss this with him and his over the phone. He would like his prescriptions E scribed to [facility] in [facility]. Upon discharge patient will contact our office with any concerns or questions. I have reviewed the [place] Automated Rx Reporting System (OARRS) report for [...] JAZZMINE AMARO PA-C on 09/14/2023 07:45 AM [facility] 09-13-2023 Note ORIGINAL EXAMINATION: TWO [...] 09/13/2023 1:03:18 PM Ordering Provider: ANDRIY BAER [facility] 09-13-2023 Anesthesiology Consult note Patient: ISIDRO GRIMALDO Age: 63 years Sex: Male : 1960 Associated Diagnoses: None Author: ADRIANO DAVIS MAGAZINE KEEPER-DIRECT SUPPORT STAFF Preoperative Information Time of last food or [...] list: Medical Back pain / SNOMED CT 6471773610 / Confirmed Brain tumor / SNOMED CT 2817583559 / Confirmed Preoperative evaluation for tubal ligation / SNOMED CT 440969703 / Confirmed, Active Problems (6) Arthritis Back pain Brain tumor Preoperative evaluation for tubal ligation Seizure WPW (Vgoan-Twhgekkav-Jdiot syndrome) Histories Past Medical History: No active or resolved past medical history items have been selected or recorded. Family History: Entire family history is negative. Procedure history: Melanoma in situ ([id number]). Comments: 08/17/2023 13:32 Mohini Singh RN FACE Umbilical hernia ([id number]). Arthroscopy of knee ([id number]). Comments: 08/17/2023 13:32 Mohini Singh RN RIGHT Inguinal hernia ([id number]). Comments: 08/17/2023 13:33 Mohini Singh RN RIGHT Tumor ([id number]). Comments: 08/17/2023 13:35 Mohini Singh RN NONCANCEROUS [...] Diastolic Blood Pressure Non-Invasive 98 mmHg HI Vital Signs (last 24 hrs) Last Charted Temp Koytrwjv66.4 DegC (SEP 12 08:20) Heart Rate Nceaaghbq06 bpm (SEP 12 11:00) XLQ542 mmHg (SEP 12 10:55) DBP53 mmHg (SEP 12 10:55) Measurements from flowsheet : Measurements 09/13/2023 8:20 EDT Height 182 cm Height in inches 71.7 inch(es) Admission Weight 108.5 kg Weight Lbs 238.7 lb Kipling Body Weight 76.80 kg Admission Body Mass [...] Provider #1 Bedside Time Out ADRIANO DAVIS APRN-DIRECT SUPPORT STAFF Provider #2 Bedside Time Out Morelia Evangelista [...] Surgeon SN - CAt - Role Performed Veterinary Bacteriologist 1 SN - CAt - Role Performed DIRECT SUPPORT STAFF SN - CAt - Role Performed Faculty Physician 1 SN - CAt - Role Performed Scrub 1 SN - CAt - Role Performed Coconut Cooker 09/13/2023 9:18 EDT Able To Drink Order [...] Transport Mode Order Detail Bed and Nurse Graffiti Cleaner Details Form Graffiti Cleaner Details Form 09/13/2023 9:16 EDT Forearm Right [...] Person #1 We May Share MIRYAM GRIMALDO [phone] Designated Person #1 Relationship Spouse Privacy Restrictions [...] evident Teaching Method Explanation Preferred Spoken Language Puerto Rican Preferred Written Language Puerto Rican Teaching Evaluation Verbalizes/Nonverbally indicates understanding Total Joint [...] Weight 108.5 kg Weight Lbs 238.7 lb Kipling Body Weight 76.80 kg Admission Body Mass [...] ethnicity Skin Integrity Intact Mucous Membrane Color Pound Skin Moisture General Dry IV Present Present Neurological Symptoms Patient denies Extremity Movement Equal Characteristics of Speech Clear Level of Consciousness Alert EMERITA Yes Strength All Extremities Strong Affect/Behavior Appropriate, Calm, Cooperative Orientation Oriented x 4 Allergies Yes Anesthesia Extension Set Applied Yes Window Glazier On Yes Consent Form Signed Yes Patient [...] Room 09/13/2023 8:18 . Assessment and Plan [employer] Society of Anesthesiologists (ASA) physical status classification: Class II. Anesthetic Preoperative Plan Premedication: intravenous. Anesthetic technique: Spinal. Induction: intravenously. Maintenance airway: FM. Postoperative pain management: Per surgeon. Risks discussed: nausea. Informed consent: signed by patient. Digitally Signed by ADRIANO DAVIS on 09/13/2023 11:09 AM [facility] 08-17-2023 Note ORIGINAL EXAMINATION: CT [...] Sign Date: 08/17/2023 4:31:16 PM Ordering Provider: [facility] Discharge summary Note Date/Time March 02, 2023 7:25am [facility] Medical Records Department [address] [place] [address] Emergency Department Summary 03/02/23 MR#: [id number] Acct: [id number] Name: ISIDRO GRIMALDO Rep #:[id number] : 1960 62 From: Stanley Rasmussen MD PCP: Care Physician,No Primary Status :DEP ER Location: ED HPI History of Present Illness Chief Complaint: Back Informant: patient and spouse/S.O. Narrative Narrative: Presents with right-sided lower back pain. Patient's had problems like this couple times in the past. He is actually responded well to steroids. He states yesterday he got out of bed and felt a sharp pain in his lower back. He went to work and he was able to come to work it out and did better. But if he bent in certain ways it caused pain. Occasionally the pain goes down the back of his leg but does not go quite to hisknee. No weakness. Patient has no bowel or bladder acute dysfunction. For thelast 6 or 8 months he has been having more frequent urination and night but figures this is large prostate and his brother had the same problem. There is no acute change in this. He has had some constipation problems in the past but not having them now. He has not had fevers or chills. No acute trauma. He hasnever had back surgery. [facility] Medical History Back pain Brain tumor Cancer of skin, face Zaxgt-Vxqmmxcpg-Iatue (WPW) syndrome Home Medications hydrocodone-acetaminophen 5-325mg 5mg-325mg 1 tab PO Q6H PRN PRN Pain 3 days #10TABLETS 03/02/23 [Rx Last Taken Unknown] prednisone 20 mg tablet 60 mg (3 x 20 mg) PO DAILY #15 TABLETS 03/02/23 [Rx Last Taken Unknown] Allergy/AdvReac Type Severity Reaction Status Date / Time latex Allergy Hives Verified 02/17/19 11:31 Surgical History H/O right knee surgery History of hernia surgery Social History Smoking Status: Never smoker ROS ROS ED ROS Narrative A complete review of systems was performed and is negative except as documented in the history of present illness. Some specific details below. Constitutional: No recent fevers or chills. No rigors. Patient has not generallyfelt ill. ENT: No sinus pressure or pain. No nasal discharge. CV: No chest pain, pressure or aching. No palpitations or irregular beats. Patient has not been presyncopal or syncopal. 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 Respiratory: No trouble breathing. No cough. GI: No abdominal pain. No nausea vomiting diarrhea. No blood in stool. No loss of bowel control. No history of AAA. : No frequency dysuria or hematuria. No incontinence or urinary retention. Also see history of present illness Musculoskeletal: No recent trauma. No swelling. Please see history of present illness. Skin: No rash. No diaphoresis. No vesicles. Neuro: No weakness or numbness. He has pain that will occasionally radiate downthe back of the right leg but does not go quite to the knee. No weakness of ambulation. No sensory changes in the extremities. Please see history of presentillness also. Endocrine: No polyuria or polydipsia. EXAM Physical Exam Narrative Exam Narrative: CONSTITUTIONAL: Patient is nontoxic in appearance. The patient looks comfortable. Work of breathing looks normal. HEENT: No notable trauma. Mucous membranes moist. No dental infections. EYES: No conjunctival injection. No pallor. NECK: No meningismus. No JVD. CARDIOVASCULAR: Regular rate. Regular rhythm. No notable murmur. No JVD. RESPIRATORY: No respiratory distress. Breathing is unlabored. No wheezes. No rhonchi. No rales. No pain with a deep breath. GASTROINTESTINAL: Not distended. Bowel sounds are normal. No tenderness. No guarding. No rebound. No palpable mass. No bruit. GENITOURINARY: No tenderness over the bladder. No CVA tenderness. MUSCULOSKELETAL: Atraumatic. No peripheral edema. No cord. No tenderness along the deep venous system. No asymmetry. Distal pulses are intact. Patient does have some little very low right paraspinal tenderness. This is not CVA tenderness. This is much lower. But there is no skin changes there. He has only very mild sciatic notch tenderness. NEUROLOGICAL: Patient is alert and oriented. No focal deficit noted. Patient can stand on toes and heels and do squats although that does hurt the back a bit. Patellar reflex is strong and 2+. Achilles reflex 1+ bilaterally. SKIN: No noted rashes. No diaphoresis. No vesicles noted. No notable pallor. PSYCHIATRIC: Patient is calm. Mood is appropriate. Const Vital Signs: 03/02/23 04:09 Temperature 97.3 F L Temperature Source Temporal Pulse Rate 76 Respiratory Rate 15 Blood Pressure 158/85 H Blood Pressure Mean 109 Pulse Ox 99 Oxygen Delivery Method Room Air MDM MDM MDM Narrative Medical decision making narrative: Patient has what sounds like musculoskeletal back pain. He has no red flags of back pain. He has had this before. He has responded well to steroids. I will initiate those. I will also give him straight meds for pain. I would like to avoid nonsteroidals while he is on steroids. His online prescribing report shows absolutely no controlled substances at all. I believe this patient is seeking improvement in management of his pain and is not seeking meds specifically. Discharge Plan Triage Chief Complaint: Back ED Provider: Stanley Rasmussen Dx/Rx/DC Orders Clinical Impression: Right lumbar pain Instructions: ED Back Pain (Acute or Chronic) Prescriptions: New hydrocodone-acetaminophen [hydrocodone-acetaminophen] 5-325 mg tablet 1 tab PO Q6H PRN PRN (Reason: Pain) 3 Days Qty: 10 0RF prednisone 20 mg tablet 60 mg PO DAILY Qty: 15 0RF Stand Alone Forms: ED Work / School Excuse Referrals: Janet Apple MD [Med Staff - Towboat Pilot] - 3-5 Days if not improving Activity Restrictions/Additional Instructions: Follow-up with your doctor or referral as above. Disposition Disposition: Home, Self Care What to do if you have Problems For any increased pain, shortness of breath, bleeding, nausea or vomiting, chestpain, or any unexpected problems, contact your Primary Care Provider. Call [facility] ([phone]) or report to the closest Emergency Room. Call 911 if necessary. 03/02/23 0430 <Electronically signed by Stanley Rasmussen MD> Cosigner Signature (if applicable): CC: No Primary Care Physician ~ Signed [facility] Work Phone: Evaluation + Plan note Future Appointments Appointment Date:08/29/2023 01:00:00 PM Scheduled Provider: Location:[facility] Appointment Type:CV CEMENT SACK BREAKER [facility] Evaluation noteNo assessment information available [facility] Work Phone: Hospital course Narrative No data available for this section [facility] Hospital Discharge instructions Additional Instructions Follow-up with your doctor or referral as above.[facility] Work Phone: Hospital Discharge instructions No data available for this section [facility] Progress note No data available for this section [facility] Summary Purpose Family History No Family History Records Found No data available for this section No data available for this section No data available for this section No Family History Records FoundNo Family History Records Found Advance Directives No Advanced Directives Records Found Advance Directive Response Recorded Date/ Time Advance Directives No May 24 015 12:14pm Living Will No March 02 023 4:11am Power of Telemetry Nurse No March 02, 2023 4:11am Chief Complaint and Reason for Visit Chief Complaint BACK PAIN Additional Source Comments (unrecognized sect ion and content) No Status Records FoundNo Status Records FoundNo Status Records Found INFORMATION SOURCE (unrecogn ized section and content) DATE CREATED AUTHOR 04/16/2018 [facility] DATE CREATED AUTHOR AUTHOR'S ORGANIZ ATION 09/28/2023 [facility] DATE CREATED AUTHOR AUTHOR'S ORGANIZ ATION 01/29/2024 [facility] Care Teams (unrecognized sec tion and content) Team Status: Active Member Role Status Dates No Primary Care Physician Family Provider Active No Primary Care Physician Primary Care Provider Active Team Status: Inactive Member Role Status Dates Dr. Stanley Rasmussen MD Emergency Provider Active No Primary Care Physician Primary Care Provider Active Goals (unrecognized section and content) Goals may be documented in a n alternate section No data available for this section No data available for this section No data available for this section FOR RECORDS PERTAINING TO PATIENTS WHO ARE [...] BE BASED ON THE PRIMARY CLINICAL RECORDS. [facility]. provides no warranty or guarantee of the accuracy or completeness of information in this document.
[2024-08-31 12:37] LABS: Absolute Lymphocyte Count 1.76 X10^3/uL (0.83-4.51); Absolute Neutrophil Count 2.8 X10^3/uL (2.0-7.7); Basophil# 0.04 X10^3/uL; Basophil% 0.8 % (0-1); Eosinophil# 0.07 X10^3/uL; Eosinophils% 1.4 % (0-5); Hematocrit 38.4 % (40-54); Hemoglobin 12.8 g/dL (13.0-16.5); Lymphocyte # 1.76 X10^3/ul (0.83-4.51); Lymphocyte % 34.3 % (19-41); Mean Corp Hgb Conc 33.3 g/dL (32-36); Mean Corpuscular Hgb 30.9 pg (27.0-32.0); Mean Corpuscular Volume 92.8 fL (80-94); Mean Platelet Vol. 10.4 fl (6.2-12.0); Monocyte% 7.8 % (0-10); NRBC Flagged by Analyzer 0 % (0-5); Neutrophil # 2.84 X10^3/uL (2.7-7.7); Neutrophil % 55.3 % (47-70); Platelet Count 305 K/mm3 (150-450); RBC Distribution Width CV 12.5 % (11.6-14.6); RBC Distribution Width SD 42.6 fl (35.1-43.9); Red Blood Count 4.14 M/mm3 (4.6-6.2); White Blood Count 5.1 K/mm3 (4.4-11.0)
[2024-08-31 15:31] LABS: ALB/GLOB Ratio 1.7 RATIO (0.9-2.4); AST(SGOT) 16 U/L (<=37); Alanine Aminotransfer ALT/SGPT 15 U/L (<=46); Albumin, Serum 4.3 g/dL (3.4-4.8); Alkaline Phosphatase 60 U/L (40-129); Anion Gap 11 (5-15); BUN 17 mg/dL (4-19); BUN/Creat Ratio 18.6 RATIO (10-20); Calcium,Total 9.1 mg/dL (7.6-11.0); Carbon Dioxide 24.5 mmol/L (21.0-32.0); Chloride 105 mmol/L (98-108); Cholesterol 192 mg/dL (<=200); Creatinine, Serum 0.89 mg/dL (0.70-1.20); EST Glomerular Filtration Rate 96 (>60); Globulin 2.6 g/dL (2.2-4.2); Glucose 91 mg/dL (70-99); High Density Lipoprotein 43 mg/dL; Low Density Lipoprotein Calc. 132 mg/dL; Potassium 4.1 mmol/L (3.3-5.1); Protein, Total 6.9 g/dL (5.9-8.4); Sodium Level 140 mmol/L (133-145); Total Bilirubin 1.35 mg/dL (0.00-1.30); Triglycerides 86 mg/dL; Very Low Density Lipoprotein 17 mg/dL (5-40); cholesterol:hdl ratio screen 4.52
== END | disposition home or self-care (01) ==
LOC: BFHLAB 08:48
PROVIDERS: PCP Family Medicine; Visit Provider Family Medicine
DX: Z00.00 Encounter for general adult medical examination without abnormal findings (principal); R60.0 Localized edema
CPT/HCPCS: 36415; 80053; 80061; 85025

== ENCOUNTER → 2024-12-14 | Outpatient (CLI) | payer OTHER, SELFPAY ==
--- NOTE | 2024-12-14 09:38 | STEWCON_ITS ---
Reason For Study Reason For Study: PVC's; Abnormal EKG Stress Results Protocol: Castro Protocol WITH DEFINITY Maximum Predicted HR: 156 bpm Target HR: 133 bpm % Maximum Predicted HR: 89 % DurationHeart Rate Stage (mm:ss) (bpm) BP Comment Baseline 77 138/86No Chest Pain; 2 ML Diluted Definity Castro Protocol Stage I 3:00 113 164/80No Chest Pain Castro Protocol Stage II 3:00 131 174/82No Chest Pain; Mild Dyspnea Castro Protocol Stage III 0:30 139 / No Chest Pain; Moderate Dyspnea Recovery 88 148/72No Chest Pain Stress Duration: 6:30 mm:ss Maximum Stress HR: 139 bpm METS: 8 Baseline Echocardiogram Findings The estimated ejection fraction is 60 %. Post-exercise EF was 65 to 70%. Stress Echo Wall motion Data Resting WM Intermediate WM Stress WM Resting Wall Motion Wall Motion Stress No regional wall motion abnormalities No definite regional wall motion noted. abnormalities noted. The posterior wall was not well-visualized in the parasternal short axis view. EKG Data Normal sinus rhythm, no significant ST-T changes. Normal sinus rhythm, no significant ST-T changes. Symptoms with Stress The patient experinced No chest pain . ECHO/Stress Test Echo W/Contrast Interpretation Summary The estimated ejection fraction is 60 %. Exercise echocardiogram is negative for exercise-induced chest pain or EKG or e chocardiographic changes of ischemia. Functional capacity is normal for age Ordering Physician: Damon Maddox Referring Physician: Damon Maddox Performed By: Bertrand Stone RCS
--- OUTSIDE RECORDS SUMMARY | 2024-12-14 10:01 | XMS RPT_ITS | CCD ---
Author Organization [facility] Care Team Providers Care Outside Medical Sales Representative Name Role Phone RHETT PALENCIA III Attending Unavail able CAITLYN CASANOVA Primary Care Physician [phone] KEYUR STEWART, DR ANDRIY Resendiz Attending Unavailab CAITLYN Aguero Primary Care Unavailable KEYUR STEWART, DR ANDRIY Resendiz Attending Unavailab CAITLYN Aguero Primary Care Unavailable KEYUR STEWART, DR ANDRIY Resendiz Attending Unavailab CAITLYN Aguero Primary Care Unavailable KEYUR STEWART, DR ANDRIY Resendiz Admitting Unavailab le [employer]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 Brady Primary Care Provider [phone] Dr. Caitlyn Casanova MD Attending Provider Dr. Caitlyn Casanova MD Referring Provider Dr. Damon Maddox MD Attending Provider Caitlyn Casanova Attending Unavailable Caitlyn Casanova Primary Care Unavailable Caitlyn Casanova Referring Unavailable Caitlyn Csaanova Attending Unavailable Caitlyn Casanova Primary Care Unavailable Caitlyn Csaanova Attending Unavailable Caitlyn Casanova Primary Care Unavailable Caitlyn Casanova Referring Unavailable Caitlyn Casanova Referring Unavailable Damon Maddox Attending Unavailable Caitlyn Casanova Primary Care Unavailable Allergies Allergy Classification Reported Allergen(s) Allergy Type Date of Onset Reaction(s) Facility (8 sources) Latex; Translations: [LATEX] Propensity to adverse reactions (disorder) 09-29-200 3 Hives, RASH [facility] Other [place] [facility] Medications Current Medications Medication Drug Class(es) [...] # 60 tab(s), 0 Refill(s), Pharmacy: [facility]/pharmacy #[id number], 182, cm, 09/13/23 13:39:00 EDT, Height, kg, 09/13/23 13:39:00 EDT, Dosing Weight Start Date: 09/14/23 Stop Date: 10/14/23 Status: Ordered docusate sodium 50 mg / sennosides, pen[facility]entiary 8.6 mg oral tablet (1 source) Start: 09-14-2023 End: 09-17-2023 take 1 tablet by mouth twice daily Senokot S 50 mg-8.6 mg oral tablet Dose = 2 tab(s), Oral, BID, Take until first bowel movement, then as needed, X 3 day(s), # 12 tab(s), 0 Refill(s), Pharmacy: [facility]/pharmacy #[id number], 182, cm, 09/13/23 13:39:00 EDT, Height, kg, 09/13/23 13:39:00 EDT, Dosing Weight Start Date: 09/14/23 Stop Date: 09/17/23 Status: Ordered famotidine 20 mg oral tablet (1 source) Histamine-2 Receptor Antagonist Start: 09-14-2023 Pepcid 20 mg oral tablet Dose : 20 mg = 1 tab(s), Oral, qDay, # 30 tab(s), 0 Refill(s), Pharmacy: [facility]/pharmacy #[id number], 182, cm, 09/13/23 13:39:00 EDT, Height, kg, 09/13/23 13:39:00 EDT, Dosing Weight Start Date: 09/14/23 Status: Ordered loratadine 10 mg oral tablet (4 sources) Start: 11-01-2024 take 1 tablet by mouth once daily Loratadine (Claritin) 10 mg tablet Active 10 mg PO daily November 01, 2024 12:00am Start: 08-17-2023 Claritin 10 mg oral tablet [...] Refill(s), 09/21/23 7:47:00 AM EDT, Pharmacy: [facility]/pharmacy #[id number], Status post total left knee replacement, 182, cm, 09/13/23 13:39:00 EDT, Height, 108.5, kg, 09/13/23 13:39:00 EDT, Dosing Weight Start Date: 09/14/23 Stop Date: 09/21/23 Status: Ordered Completed/Discontinued Medications Medication Drug Class(es) Dates Sig (Normalized) Sig (Original) acetaminophen 325 mg / HYDROcodone bitartrate 5 mg oral tablet (6 sources) Opioid Agonist Start: 03-02-2023 End: 11-09-2024 Hydrocodone-Acetami nophen 5-325 mg tablet Discontinued 1 {tbl} PO EVERY 6 HOURS NEEDED as needed for Pain 10 3 0 March 02, 2023 November 09, 2024 9:01am Pain in right lumbar region of back Low back pain, unspecified Start: 03-02-2023 take 1 tablet by chuck th every six hours as needed Hydrocodone-Acetaminophen Active 1 TABLE T PO EVERY 6 HOURS NEEDED 10 March 02, 2023 Start: 02-17-2019 End: 02-28-2019 Hydrocodone-Acetaminophen 1 TABLET tablet Discontinued 1 {tbl} PO EVERY 4 HOURS NEEDED as needed for Pain 20 2 February 17, 2019 February 18, 2019 1:00am February 28, 2019 1:10am Back pain Dorsalgia, unspecified Start: 02-17-2019 End: 02-28-2019 take 1 tablet by mouth every four hours as needed Hydrocodone-Acetaminophen Discontinued 1 TABLET PO EVERY 4 HOURS NEEDED 20 2 February 17, 2019 February 28, 2019 12:10am diazePAM 5 mg oral tablet (3 sources) Benzodiazepine Start: 02-17-2019 End: 03-02-2023 take 1 tablet by mouth every eight hours as needed for muscle spasms Diazepam 5 MG tablet Discontinued 5 mg PO EVERY 8 HOURS as needed for Muscle Spasm February 17, 2019 1:00am March 02, 2023 5:16am methylPREDNISolone 4 mg oral tablet (3 sources) Corticosteroid Start: 02-17-2019 End: 03-02-2023 Methylprednisolone 4 MG tablets,dose pack Discontinued 4 mg PO DIRECTED 1 February 17, 2019 1:00am March 02, 2023 5:16am predniSONE 20 mg oral tablet (3 sources) Start: 03-02-2023 End: 11-09-2024 take 3 tablets by mouth once daily Prednisone 20 mg tablet Discontinued 60 mg PO DAILY March 02, 2023 1:00am November 09, 2024 9:01am Start: 03-02-2023 take 60 mg by mouth once daily Prednisone Active 60 MG PO DAILY March 02, 2023 12:00am Problems Problem Classification Problem Date Documented Date Episodic/Chronic Allergic reactions (1 source) Allergic disposition; Translations: [Allergy, unspecified, initial encounter] Onset: 09-13-2023 Episodic Cardiac dysrhythmias (3 sources) Multiple premature ventricular complexes; Translations: [Ventricular premature depolarization] Onset: 11-09-2024 11-01-2024 Chronic Conduction disorders (1 source) Pre-excitation syndrome; Translations: [Pre-excitation syndrome] Onset: 11-09-2024 Chronic Disorders of lipid metabolism (3 sources) Hyperlipidemia; Translations: [Hyperlipidemia, unspecified] Onset: 11-09-2024 11-01-2024 Chronic Esophageal disorders (1 source) Gastroesophageal reflux disease; Translations: [Gastro-esophageal reflux disease without esophagitis] 11-01-2024 Chronic Hyperplasia of prostate (1 source) Benign prostatic [...] Spondylosis; intervertebral disc disorders; other back problems (5 sources) Lumbago; Translations: [Pain in right lumbar [...] Test Name Value Interpretation Reference Range Facility Cardiology Visit Reporton Cardiology Visit Report [facility] [address] [place] [address] OFFICE VISIT Date of Service: 11/09/24 MR#: [id number] Acct: [id number] Name: ISIDRO GRIMALDO Rep #: [id number] : 1960 Provider: Dr. Damon davalos MD Age/Sex: 64/M Location: [facility] Status: Signed HPI HPI History of Present Illness Details: Patient 64-year-old white male that comes in with his today for new patient visit. 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 At that time they had wanted to proceed with electrophysiology study and adenosine challenge. However for what ever reason this was never undertaken. The patient denies any syncope or near syncope he did have a Holter monitor back in 2014 that showed some nonsustained ventricular tachycardia that was felt as palpitations but was not presyncopal. The patient has never passed out to his knowledge. He does occasionally feel palpitations but really they are not that prominent anymore. ECG in the office today shows normal sinus rhythm and is normal with a MD interval 166 ms. His ECG from November 2014 showed a MD interval of 156 there were couple of leads that had a slow upsloping of his R wave but his MD interval was still normal. The patient has undergone the surgery without incident he also has a history of a benign brain tumor that was removed he has a history of hyperlipidemia. Patient has a family history of coronary disease he is not hypertensive he does have hyperlipidemia that is untreated. He is not diabetic and does not smoke. The patient is fairly active in his home environment denies any significant symptoms at this point in time. 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: No Accompanied by: Is patient in pain?: No Allergies latex Allergy (Verified 11/09/24 09:01) Hives Medications ???Medication ???Instructions ???Recorded ???Confirmed ???Type loratadine 10 mg tablet (Claritin) 10 mg PO QDAY 11/01/24 11/01/24 History Have you fallen in the past year?: No [facility] Medical History Shingles Melanoma PVCs (premature ventricular contractions) 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 Social History Smoking Status: Never smoker alcohol intake: current substance use type: does not use caffeine: Yes ROS Const Const: Negative for fatigue or weakness ENT ENT: Negative for dizziness or balance problems Cardio Chest Pain: No Palpitations: Yes Edema: Bilateral Muscle aches with walking: None Resp Respiratory: Negative for SOB with activity, SOB at rest or SOB orthopnea SOB lying down GI GI: Positive for heartburn; Negative nausea or vomiting Musc Musc: Negative for muscle weakness or balance problems Neuro Neuro: Negative for dizziness, lightheadedness, near syncope, syncope or weakness Endo Endo: Negative for fatigue Cardiology Exam Const Appearance: cooperative, healthy appearing, comfortable, no acute distress and well developed Head Head: normal to inspection Eyes General: appearance normal, both eyes and all related structures Neck Neck: normal visual inspection and no JVD Chest Chest inspection: normal inspection of the chest Cardio Rate: regular rate Rhythm: regular rhythm Neuro General: patient alert and patient oriented x3 Extremities Lower Extremity Edema: Trace: Bilateral Psych Psychological: normal affect Supplemental Info Supplemental Information Labs: LDL Cholesterol 141 mg/dL (0-130) H HDL Cholesterol 43 mg/dL (40-) Cholesterol 192 mg/dL (<=200) Triglycerides 86 mg/dL (-199) Diagnostics: Abdomen/Pelvis CT Pulmonary: No Data to Display Past Visits: (more content not included)... Normal [facility] Absolute lymphocyte countOrd ered By: Caitlyn Casanova on 08-31-2024 Lymphocytes Auto (Unsp spec) [#/Vol] 1.76 10*3/uL 0.83-4.51 [facility] Absolute neutrophil countOrd ered By: Caitlyn Casanova on 08-31-2024 Neutrophils (Bld) [#/Vol] 2.8 10*3/uL 2.0-7.7 [facility] Anion gap in Serum or Plasma Ordered By: Caitlyn Casanova on 08-31-2024 Anion gap [Moles/Vol] 11 mmol/L 5-15 [facility] Automated lymphocyte count a s percentage of total leukocytesOrdered By: Caitlyn Casanova on 08-31-2024 Lymphocytes/100 WBC Auto (Unsp spec) 34.3 % - [facility] BUN/creatinine ratioOrdered By: Caitlyn Robertssoheila on 08-31-2024 Urea nitrogen/Creatinine [Mass ratio] 18.6 mg/mg - [facility] Basophil percentageOrdered B y: Caitlynlucia Casanova on 08-31-2024 Basophils/100 WBC (Bld) 0.8 % 0-1 [facility] Bilirubin, totalOrdered By: Caitlyn Alejandrasoheila on 08-31-2024 Bilirubin [Mass/Vol] 1.35 mg/dL High 0.00-1.30 [facility] CBC W/Diff, Automatedon 08-13-2024 Absolute Lymph 1.76 X10 3/uL Normal 0.83-4.51 [facility] Comment on above: Performed By: #### L 500.4100, L100.0100, L500.4050 #### [facility] [address] [place], [address] Absolute Neut 2.8 X10 3/uL Normal 2.0-7.7 [facility] Comment on above: Performed By: #### L 500.4100, L100.0100, L500.4050 #### [facility] [address] [place], [address] Basophils/100 WBC (Bld) 0.8 % Normal 0-1 [facility] Comment on above: Performed By: #### L 500.4100, L100.0100, L500.4050 #### [facility] [address] [place], [address] Eosinophils/100 WBC (Bld) 1.4 % Normal 0-5 [facility] Comment on above: Performed By: #### L 500.4100, L100.0100, L500.4050 #### [facility] [address] [place], [address] Erythrocyte distribution width (RBC) [Ratio] 12.5 % Normal 11.6-14.6 [facility] Comment on above: Performed By: #### L 500.4100, L100.0100, L500.4050 #### [facility] [address] [place], [address] Hematocrit (Bld) [Volume fraction] 38.4 % Low 40-54 [facility] Comment on above: Performed By: #### L 500.4100, L100.0100, L500.4050 #### [facility] [address] [place], [address] Hemoglobin (Bld) [Mass/Vol] 12.8 g/dL Low 13.0-16.5 [facility] Comment on above: Performed By: #### L 500.4100, L100.0100, L500.4050 #### [facility] [address] [place], [address] IG% 0.400 Normal 0.0-0.9 [facility] Comment on above: Result Comment: IG% - Immature Granulocytes (promyelocytes, myelocytes and metamyelocytes) > 1% indicates that a LEFT SHIFT is Present. Performed By: #### L 500.4100, L100.0100, L500.4050 #### [facility] [address] [place], [address] Lymphocytes/100 WBC (Bld) 34.3 % Normal 19-41 [facility] Comment on above: Performed By: #### L 500.4100, L100.0100, [id number] #### [facility] [address] [place], [address] MCH (RBC) [Entitic mass] 30.9 pg Normal 27.0-32.0 [facility] Comment on above: Performed By: #### L 500.4100, L100.0100, L500.4050 #### [facility] [address] [place], [address] MCHC (RBC) [Mass/Vol] 33.3 g/dL Normal 32-36 [facility] Comment on above: Performed By: #### L 500.4100, L100.0100, L500.4050 #### [facility] [address] [place], [address] MCV (RBC) [Entitic vol] 92.8 fL Normal 80-94 [facility] Comment on above: Performed By: #### L 500.4100, L100.0100, [id number] #### [facility] [address] [place], [address] Monocytes/100 WBC (Bld) 7.8 % Normal 0-10 [facility] Comment on above: Performed By: #### L 500.4100, L100.0100, L500.4050 #### [facility] [address] [place], [address] Neutrophils/100 WBC (Bld) 55.3 % Normal 47-70 [facility] Comment on above: Performed By: #### L 500.4100, L100.0100, [id number] #### [facility] [address] [place], [address] Nucleated RBC (Bld) [#/Vol] 0 10*3/uL Normal 0-5 [facility] Comment on above: Performed By: #### L 500.4100, L100.0100, L500.4050 #### [facility] [address] [place], [address] Platelet mean volume (Bld) [Entitic vol] 10.4 fL Normal 6.2-12.0 [facility] Comment on above: Performed By: #### L 500.4100, L100.0100, L500.4050 #### [facility] [address] [place], [address] Platelets (Bld) [#/Vol] 305 10*3/uL Normal 150-450 [facility] Comment on above: Performed By: #### L 500.4100, L100.0100, L500.4050 #### [facility] [address] [place], [address] RBC (Bld) [#/Vol] 4.14 10*6/uL Low 4.6-6.[address] [facility] Comment on above: Performed By: #### L 500.4100, L100.0100, L500.4050 #### [facility] [address] [place], [address] RDW SD 42.6 fl Normal 35.1-43.9 [facility] Comment on above: Performed By: #### L 500.4100, L100.0100, L500.4050 #### [facility] [address] [place], [address] WBC (Bld) [#/Vol] 5.1 10*3/uL Normal 4.4-11.0 [facility] Comment on above: Performed By: #### L 500.4100, L100.0100, L500.4050 #### [facility] [address] [place], [address] Calculated very low density lipoprotein (VLDL) cholesterol measurementOrdered By: Caitlyn Casanova on 08-31-2024 Calculated very low density lipoprotein (VLDL) cholesterol measurement 17 mg/dL 5-40 [facility] Carbon dioxide, total [Moles /volume] in Central venous bloodOrdered By: Caitlyn Casanova on 08-31-2024 CO2 [Moles/Vol] 24.5 mmol/L 21.0-32.0 [facility] Chloride assayOrdered By: Steven Casanova on 08-31-2024 Chloride [Moles/Vol] 105 mmol/L 98-108 [facility] Comprehensive Metabolic Prof ilon 08-31-2024 Albumin [Mass/Vol] 4.3 g/dL Normal 3.4-4.8 [facility] Comment on above: Performed By: #### L 500.4100, L100.0100, L500.4050 #### [facility] [address] [place], [address] Albumin/Globulin [Mass ratio] 1.7 {ratio} Normal 0.9-2.4 [facility] Comment on above: Performed By: #### L 500.4100, L100.0100, L500.4050 #### [facility] [address] [place], [address] ALK PHOS 60 U/L Normal 40-129 [facility] Comment on above: Performed By: #### L 500.4100, L100.0100, L500.4050 #### [facility] [address] [place], [address] ALT [Catalytic activity/Vol] 15 U/L Normal <=46 [facility] Comment on above: Performed By: #### L 500.4100, L100.0100, L500.4050 #### [facility] [address] [place], [address] AST [Catalytic activity/Vol] 16 U/L Normal <=37 [facility] Comment on above: Performed By: #### L 500.4100, L100.0100, L500.4050 #### [facility] [address] [place], [address] Bilirubin [Mass/Vol] 1.35 mg/dL High 0.00-1.30 [facility] Comment on above: Performed By: #### L 500.4100, L100.0100, L500.4050 #### [facility] [address] [place], [address] BUN/CRE 18.6 RATIO Normal 10-20 [facility] Comment on above: Performed By: #### L 500.4100, L100.0100, L500.4050 #### [facility] [address] [place], [address] Calcium [Mass/Vol] 9.1 mg/dL Normal 7.6-11.0 [facility] Comment on above: Performed By: #### L 500.4100, L100.0100, L500.4050 #### [facility] [address], [address] Chloride [Moles/Vol] 105 mmol/L Normal 98-108 [facility] Comment on above: Performed By: #### L 500.4100, L100.0100, L500.4050 #### [facility] [address] [place], [address] CO2 [Moles/Vol] 24.5 mmol/L Normal 21.0-32.0 [facility] Comment on above: Performed By: #### L 500.4100, L100.0100, L500.4050 #### [facility] [address] [place], [address] Creatinine [Mass/Vol] 0.89 mg/dL Normal 0.70-1.20 [facility] Comment on above: Performed By: #### L 500.4100, L100.0100, L500.4050 #### [facility] [address], [address] GAP 11 Normal 5-15 [facility] Comment on above: Performed By: #### L 500.4100, L100.0100, L500.4050 #### [facility] [address] [place], [address] GFR/1.73 sq M.predicted among non-blacks MDRD (S/P/Bld) [Vol rate/Area] 96 mL/min/{1.73_m2} Normal >60 [facility] Comment on above: Result Comment: mL/m in/1.73m2 CKD-EPI Creatinine Equation (2020) Performed By: #### L 500.4100, L100.0100, L500.4050 #### [facility] [address] [place], [address] Globulin (S) [Mass/Vol] 2.6 g/dL Normal 2.2-4.2 [facility] Comment on above: Performed By: #### L 500.4100, L100.0100, L500.4050 #### [facility] [address] [place], [address] Glucose [Mass/Vol] 91 mg/dL Normal 70-99 [facility] Comment on above: Performed By: #### L 500.4100, L100.0100, L500.4050 #### [facility] [address] [place], [address] Potassium [Moles/Vol] 4.1 mmol/L Normal 3.3-5.1 [facility] Comment on above: Performed By: #### L 500.4100, L100.0100, L500.4050 #### [facility] [address] [place], [address] Sodium [Moles/Vol] 140 mmol/L Normal 133-145 [facility] Comment on above: Performed By: #### L 500.4100, L100.0100, L500.4050 #### [facility] [address] [place], [address] T PROT 6.9 g/dL Normal 5.9-8.4 [facility] Comment on above: Performed By: #### L 500.4100, L100.0100, L500.4050 #### [facility] [address] [place], [address] Urea nitrogen [Mass/Vol] 17 mg/dL Normal 4-19 [facility] Comment on above: Performed By: #### L 500.4100, L100.0100, L500.4050 #### [facility] [address] [place], [place], [id number] Eosinophil percentageOrdered By: Caitlyn Casanova on 08-31-2024 Eosinophils/100 WBC (Bld) 1.4 % 0-5 [facility] Erythrocyte distribution wid th ratioOrdered By: Caitlyn Casanova on 08-31-2024 Erythrocyte distribution width (RBC) [Ratio] 12.5 % 11.6-14.6 [facility] Erythrocyte distribution wid th standard deviationOrdered By: Caitlyn Casanova on 08-31-2024 Erythrocyte distribution width (RBC) [Ratio] 42.6 fl 35.1-43.9 [facility] Glomerular filtration rate ( GFR) estimation/1.73 sq m using serum, plasma, or whole bOrdered By: Caitlyn Casanova on 08-31-2024 GFR/1.73 sq M.predicted among non-blacks MDRD (S/P/Bld) [Vol rate/Area] 96 mL/min/{1.73_m2} >60 [facility] Comment on above: mL/min/1.73m2 CKD-EP I Creatinine Equation (2020) Hematocrit Auto (Bld) [Volum e fraction]Ordered By: Caitlyn Casanova on 08-31-2024 Hematocrit (Bld) [Volume fraction] 38.4 % Low 40-54 [facility] Hemoglobin measurementOrdere d By: Caitlyn Casanova on 08-31-2024 Hemoglobin (Bld) [Mass/Vol] 12.8 g/dL Low 13.0-16.5 [facility] Immature granulocytes/100 WB C Auto (Bld)Ordered By: Caitlyn Casanova on 08-31-2024 Immature granulocytes/100 WBC (Bld) 0.400 % 0.0-0.9 [facility] Comment on above: IG% - Immature Granu locytes (promyelocytes, myelocytes and metamyelocytes) > 1% indicates that a LEFT SHIFT is Present. LDL calc ser/plasOrdered By: Caitlyn Casanova on 08-31-2024 Cholesterol in LDL [Mass/Vol] 132 mg/dL [facility] Comment on above: Xbromzvxny=139-893 m g/dL & Higher Dmqe=754 mg/dL or greater Laboratory - Chemistry and C hemistry - challengeOrdered By: Caitlyn Casanova on 08-31-2024 AST [Catalytic activity/Vol] 16 U/L <38 [facility] Lipid Profileon 08-31-2024 CHOL:HDL 4.52 Normal [facility] Comment on above: Performed By: #### L 500.4100, L100.0100, L500.4050 #### [facility] [address] [place], [address] Cholesterol [Mass/Vol] 192 mg/dL Normal <=200 [facility] Comment on above: Result Comment: Chol esterol level, Desirable <200 mg/dL Borderline high cholesterol 200-239 mg/dL High cholesterol >=240 mg/dL Recommendations of the NCEP Adult Treatment Panel for the following risk-cutoff thresholds for the [place] population. Performed By: #### L 500.4100, L100.0100, L500.4050 #### [facility] [address] [place], [address] Cholesterol in HDL [Mass/Vol] 43 mg/dL Normal [facility] Comment on above: Result Comment: Saumya onal Cholesterol Education Program (NCEP) guidelines: <40 mg/dL: Low HDL-cholesterol (major risk factor for CHD) >= 60 mg/dL: High HDL-cholesterol (negative risk factor for CHD) HDL-cholesterol is affected by a number of factors, e.g. smoking, exercise, hormones, sex and age. Performed By: #### L 500.4100, L100.0100, L500.4050 #### [facility] [address] [place], [address] Cholesterol in LDL [Mass/Vol] 132 mg/dL Normal [facility] Comment on above: Result Comment: Bord llzews=413-050 mg/dL Higher Xvjz=859 mg/dL or greater Performed By: #### L 500.4100, L100.0100, L500.4050 #### [facility] [address] [place], [address] Cholesterol in VLDL [Mass/Vol] 17 mg/dL Normal 5-40 [facility] Comment on above: Performed By: #### L 500.4100, L100.0100, L500.4050 #### [facility] [address] [place], [address] Triglyceride [Mass/Vol] 86 mg/dL Normal [facility] Comment on above: Result Comment: The drugs N-Acetylcysteine and Metamizole may falsely depress this assay. Normal range: <150 mg/dL Borderline High: 150-199 mg/dL High: 200-499 mg/dL Very High: >500 mg/dL Performed By: #### L 500.4100, L100.0100, L500.4050 #### [facility] [address] [place], [address] MCV (mean corpuscular volume ) determinationOrdered By: Caitlyn Casanova on 08-31-2024 MCV (RBC) [Entitic vol] 92.8 fL 80-94 [facility] Mean corpuscular hemoglobin (MCH) determinationOrdered By: Caitlyn Casanova on 08-31-2024 MCH (RBC) [Entitic mass] 30.9 pg 27.0-32.0 [facility] Mean corpuscular hemoglobin concentration (MCHC) determinationOrdered By: Caitlyn Casanova on 08-31-2024 MCHC (RBC) [Mass/Vol] 33.3 g/dL 32-36 [facility] Mean platelet volume determi nationOrdered By: Caitlyn Casanova on 08-31-2024 Platelet mean volume (Bld) [Entitic vol] 10.4 fL 6.2-12.0 [facility] Monocyte percentageOrdered B y: Caitlyn Casanova on 08-31-2024 Monocytes/100 WBC (Bld) 7.8 % 0-10 [facility] Neutrophil percentageOrdered By: Caitlyn Casanova on 08-31-2024 Neutrophils/100 WBC (Bld) 55.3 % 47-70 [facility] Nucleated red blood cell per centageOrdered By: Caitlyn Casanova on 08-31-2024 Nucleated RBC/100 WBC (Bld) [Ratio] 0 % 0-5 [facility] Platelet countOrdered By: Steevn Casanova on 08-31-2024 Platelets (Bld) [#/Vol] 305 10*3/uL 150-450 [facility] Potassium measurement (mass/ volume)Ordered By: Caitlyn Casanova on 08-31-2024 Potassium (Unsp spec) [Mass/Vol] 4.1 mmol/L 3.3-5.1 [facility] RBC Auto (Bld) [#/Vol]Ordere d By: Caitlyn Casanova on 08-31-2024 RBC (Bld) [#/Vol] 4.14 10*6/uL Low 4.6-6.[address] [facility] Screening total cholesterol/ high density lipoprotein (HDL) cholesterol ratioOrdered By: Caitlyn Casanova on 08-31-2024 Cholesterol.total/Faviola sterol in HDL [Mass ratio] 4.52 {ratio} [facility] Serum creatinine measurement (mass/volume)Ordered By: Caitlyn Casanova on 08-31-2024 Creatinine [Mass/Vol] 0.89 mg/dL 0.70-1.20 [facility] Serum globulin measurementOr dered By: Caitlyn Casanova on 08-31-2024 Globulin (S) [Mass/Vol] 2.6 g/dL 2.2-4.2 [facility] Serum glucose measurement (m ass/volume)Ordered By: Caitlyn Casanova on 08-31-2024 Glucose [Mass/Vol] 91 mg/dL 70-99 [facility] Serum or plasma alanine landon otransferase (ALT) measurementOrdered By: Caitlyn Casanova on 08-31-2024 ALT [Catalytic activity/Vol] 15 U/L <47 [facility] Serum or plasma albumin maxi urement (mass/volume)Ordered By: Caitlyn Casanova on 08-31-2024 Albumin [Mass/Vol] 4.3 g/dL 3.4-4.8 [facility] Serum or plasma albumin/glob ulin mass ratioOrdered By: Caitlyn Casanova on 08-31-2024 Albumin/Globulin [Mass ratio] 1.7 {ratio} 0.9-2.4 [facility] Serum or plasma alkaline herminia sphatase measurementOrdered By: Caitlyn Casanova on 08-31-2024 ALP [Catalytic activity/Vol] 60 U/L 40-129 [facility] Serum or plasma calcium maxi urement (mass/volume)Ordered By: Caitlyn Casanova on 08-31-2024 Calcium [Mass/Vol] 9.1 mg/dL 7.6-11.0 [facility] Serum or plasma cholesterol in HDL measurement (mass/volume)Ordered By: Caitlyn Casanova on 08-31-2024 Cholesterol in HDL [Mass/Vol] 43 mg/dL >40 [facility] Comment on above: National Cholesterol Education Program (NCEP) guidelines:<40 mg/dL: Low HDL-cholesterol (major risk factor for CHD)>= 60 mg/dL: High HDL-cholesterol (negative risk factor for CHD)HDL-cholesterol is affected by a number of factors, e.g. smoking, exercise, hormones, sex and age. Serum or plasma cholesterol measurement (mass/volume)Ordered By: Caitlyn Casanova on 08-31-2024 Cholesterol [Mass/Vol] 192 mg/dL <201 [facility] Comment on above: Cholesterol level, D esirable <200 mg/dLBorderline high cholesterol 200-239 mg/dLHigh cholesterol >=240 mg/dLRecommendations of the NCEP Adult Treatment Panel for the following risk-cutoff thresholds for the [place] population. Serum or plasma urea nitroge n measurement (mass/volume)Ordered By: Caitlyn Casanova on 08-31-2024 Urea nitrogen [Mass/Vol] 17 mg/dL 4-19 [facility] Sodium levelOrdered By: Antoenlla Casanova on 08-31-2024 Sodium [Moles/Vol] 140 mmol/L 133-145 [facility] Total proteinOrdered By: Neri Casanova on 08-31-2024 Protein [Mass/Vol] 6.9 g/dL 5.9-8.4 [facility] Triglycerides measurementOrd ered By: Caitlyn Casanova on 08-31-2024 Triglyceride [Mass/Vol] 86 mg/dL <199 [facility] Comment on above: The drugs N-Acetylcy steine and Metamizole may falsely depress this assay. Normal range: <150 mg/dLBorderline High: 150-199 mg/dLHigh: 200-499 mg/dLVery High: >500 mg/dL White blood cell (WBC) count Ordered By: Caitlyn Casanova on 08-31-2024 WBC (Bld) [#/Vol] 5.1 10*3/uL 4.4-11.0 [facility] PSA,Total - Annual Screenon 01-06-2024 PSA,TOT SCREEN 1.77 ng/mL Normal 0.00-4.00 [facility] Comment on above: Result Comment: This test was performed using the TPSA assay method for the [employer] chemistry system. Values obtained with different assay methods cannot be used interchangably. When changing PSA assays in the course of monitoring a patient, additional sequential testing should be carried out to confirm baseline values. Performed By: #### L 501.9910 #### [facility] [address] [place], [place], [id number] Lipid Profileon 12-30-2023 Cholesterol [Mass/Vol] 206 mg/dL High 200 [facility] Comment on above: Result Comment: <200 mg/dL Desirable 200-240 mg/dL Borderline >240 mg/dL High Risk Performed By: #### L 500.3400, L500.4100 #### [facility] [address] [place], [address] Cholesterol in HDL [Mass/Vol] 46 mg/dL Normal [facility] Comment on above: Result Comment: The drugs N-Acetylcysteine and Metamizole may falsely depress this assay. Reference Range HDL <40 mg/dL Low HDL Cholesterol HDL >or= 60 mg/dL High HDL Cholesterol Performed By: #### L 500.3400, L500.4100 #### [facility] [address] [place], [address] Cholesterol in LDL [Mass/Vol] 141 mg/dL High 0-130 [facility] Comment on above: Performed By: #### L 500.3400, L500.4100 #### [facility] [address] [place], [address] Cholesterol in VLDL [Mass/Vol] 19 mg/dL Normal 5-40 [facility] Comment on above: Performed By: #### L 500.3400, L500.4100 #### [facility] [address] [place], [address] Triglyceride [Mass/Vol] 93 mg/dL Normal [facility] Comment on above: Result Comment: The drugs N-Acetylcysteine and Metamizole may falsely depress this assay. Serum Triglycerides Reference Interval Normal <150 mg/dL Borderline high 150 - 199 mg/dL High 200 - 499 mg/dL Very High > or = 500 mg/dL Performed By: #### L 500.3400, L500.4100 #### [facility] [address] [place], [address] Liver Profileon 12-30-2023 Albumin [Mass/Vol] 3.7 g/dL Normal 3.2-5.0 [facility] Comment on above: Performed By: #### L 500.3400, L500.4100 #### [facility] [address] [place], [address] ALK P 64 U/L Normal 45-117 [facility] Comment on above: Performed By: #### L 500.3400, L500.4100 #### [facility] [address] [place], [address] ALT [Catalytic activity/Vol] 21 U/L Normal 16-61 [facility] Comment on above: Performed By: #### L 500.3400, L500.4100 #### [facility] [address] [place], [address] AST [Catalytic activity/Vol] 15 U/L Normal 15-37 [facility] Comment on above: Performed By: #### L 500.3400, L500.4100 #### [facility] [address] [place], [address] Bilirubin [Mass/Vol] 1.40 mg/dL High 0.20-1.00 [facility] Comment on above: Result Comment: For patients on eltrombopag therapy, use of Dimension [place] TBIL is not recommended. Performed By: #### L 500.3400, L500.4100 #### [facility] [address] [place], [address] Bilirubin.direct [Mass/Vol] 0.28 mg/dL Normal 0.00-0.30 [facility] Comment on above: Performed By: #### L 500.3400, L500.4100 #### [facility] [address] [place], [address] Globulin (S) [Mass/Vol] 3.3 g/dL Normal 2.2-4.2 [facility] Comment on above: Performed By: #### L 500.3400, L500.4100 #### [facility] [address] [place], [address] T PROT 7.0 g/dL Normal 6.4-8.2 [facility] Comment on above: Performed By: #### L 500.3400, L500.4100 #### [facility] [address] [place], [address] .Auto Diffon 09-14-2023 Basophil, Absolute 0.0 10 3/mcL Normal 0.0-0.2 [facility] ([place]) Comment on above: Performed By: #### G FR, CBC, ADIFF, ANEU, BMP #### [place] [address] [address] Basophils/100 WBC (Bld) 0.1 % Normal 0.0-2.5 [facility] ([place]) Comment on above: Performed By: #### G FR, CBC, ADIFF, ANEU, BMP #### [address] [address] Eosinophil, Absolute 0.0 10 3/mcL Normal 0.0-0.4 [facility] ([place]) Comment on above: Performed By: #### G FR, CBC, ADIFF, ANEU, BMP #### [address] [address] Eosinophils/100 WBC (Bld) 0.0 % Normal 0.0-7.0 [facility] ([place]) Comment on above: Performed By: #### G FR, CBC, ADIFF, ANEU, BMP #### [address] [address] Lymphocyte, Absolute 1.3 10 3/mcL Normal 0.8-3.9 [facility] ([place]) Comment on above: Performed By: #### G FR, CBC, ADIFF, ANEU, BMP #### [address] [address] Lymphocytes/100 WBC (Bld) 8.5 % Low 10.0-50.0 [facility] ([place]) Comment on above: Performed By: #### G FR, CBC, ADIFF, ANEU, BMP #### [address] [address] Monocyte, Absolute 0.8 10 3/mcL Normal 0.2-1.0 [facility] ([place]) Comment on above: Performed By: #### G FR, CBC, ADIFF, ANEU, BMP #### [address] [address] Monocytes/100 WBC (Bld) 5.4 % Normal 1.7-13.0 [facility] ([place]) Comment on above: Performed By: #### G FR, CBC, ADIFF, ANEU, BMP #### [address] [address] Neutrophils/100 WBC (Bld) 86.0 % High 37.0-80.0 [facility] ([place]) Comment on above: Performed By: #### G FR, CBC, ADIFF, ANEU, BMP #### [address] [address] .GFRon 09-14-2023 GFR 87 ml/min/1.73sqm Normal [facility] ([place]) Comment on above: Result Comment: GFR Population [...] G FR, CBC, ADIFF, ANEU, BMP #### [address] [address] GFR Non- 72 ml/min/1.73sqm Normal [facility] ([place]) Comment on above: Result Comment: GFR Population [...] G FR, CBC, ADIFF, ANEU, BMP #### [address] [address] .NEUABSon 09-14-2023 Neutrophil, Absolute 12.8 10 3/mcL High 2.9-6.2 [facility] ([place]) Comment on above: Performed By: #### G FR, CBC, ADIFF, ANEU, BMP #### [address] [address] BMPon 09-14-2023 BUN/Creatinine Ratio 23 ratio Normal 7-27 [facility] ([place]) Comment on above: Performed By: #### G FR, CBC, ADIFF, ANEU, BMP #### [address] [address] Calcium [Mass/Vol] 9.2 mg/dL Normal 8.4-10.2 [facility] ([place]) Comment on above: Performed By: #### G FR, CBC, ADIFF, ANEU, BMP #### [address] [address] Chloride [Moles/Vol] 103 mmol/L Normal 98-107 [facility] ([place]) Comment on above: Performed By: #### G FR, CBC, ADIFF, ANEU, BMP #### [address] [address] CO2 [Moles/Vol] 26 mmol/L Normal 23-31 [facility] ([place]) Comment on above: Performed By: #### G FR, CBC, ADIFF, ANEU, BMP #### [address] [address] Creatinine [Mass/Vol] 1.04 mg/dL Normal 0.70-1.30 [facility] ([place]) Comment on above: Performed By: #### G FR, CBC, ADIFF, ANEU, BMP #### [address] [address] Electrolyte Balance 10.0 mEq/L Normal 4.0-15.0 [facility] ([place]) Comment on above: Performed By: #### G FR, CBC, ADIFF, ANEU, BMP #### [address] [address] Glucose [Mass/Vol] 118 mg/dL High 80-115 [facility] ([place]) Comment on above: Performed By: #### G FR, CBC, ADIFF, ANEU, BMP #### [address] [address] Potassium [Moles/Vol] 5.1 mmol/L Normal 3.5-5.1 [facility] ([place]) Comment on above: Performed By: #### G FR, CBC, ADIFF, ANEU, BMP #### [address] [address] Sodium [Moles/Vol] 139 mmol/L Normal 136-145 [facility] ([place]) Comment on above: Performed By: #### G FR, CBC, ADIFF, ANEU, BMP #### [address] [address] Urea nitrogen [Mass/Vol] 24 mg/dL High 7-18 [facility] ([place]) Comment on above: Performed By: #### G FR, CBC, ADIFF, ANEU, BMP #### [address] [address] CBCon 09-14-2023 Erythrocyte distribution width (RBC) [Ratio] 13.3 % Normal 11.5-14.5 [facility] ([place]) Comment on above: Performed By: #### G FR, CBC, ADIFF, ANEU, BMP #### [address] [address] Hematocrit (Bld) [Volume fraction] 35.4 % Low 42.0-52.0 [facility] ([place]) Comment on above: Performed By: #### G FR, CBC, ADIFF, ANEU, BMP #### [address] [address] Hgb 12.1 G/dL Low 14.0-18.0 [facility] ([place]) Comment on above: Performed By: #### G FR, CBC, ADIFF, ANEU, BMP #### [address] [address] MCH (RBC) [Entitic mass] 31.7 pg High 27.0-31.2 [facility] ([place]) Comment on above: Performed By: #### G FR, CBC, ADIFF, ANEU, BMP #### [place] [id number] MCHC 34.1 G/dL Normal 31.8-35.4 [facility] ([place]) Comment on above: Performed By: #### G FR, CBC, ADIFF, ANEU, BMP #### [address] [address] MCV (RBC) [Entitic vol] 92.7 fL Normal 80.0-94.0 [facility] ([place]) Comment on above: Performed By: #### Eligio FR, CBC, ADIFF, ANEU, BMP #### [address] [address] Platelet 288 10 3/mcL Normal 130-400 [facility] ([place]) Comment on above: Performed By: #### Eligio FR, CBC, ADIFF, ANEU, BMP #### [place] [address] Platelet mean volume (Bld) [Entitic vol] 8.4 fL Normal 7.4-10.4 [facility] ([place]) Comment on above: Performed By: #### G FR, CBC, ADIFF, ANEU, BMP #### [address] [address] RBC 3.82 10 6/mcL Low 4.04-6.13 [facility] ([place]) Comment on above: Performed By: #### G FR, CBC, ADIFF, ANEU, BMP #### [place] [id number] WBC 14.9 10 3/mcL High 4.6-10.8 [facility] ([place]) Comment on above: Performed By: #### G FR, CBC, ADIFF, ANEU, BMP #### [address] [address] LABORATORYOrdered By: SYSTEM SYSTEM on 09-14-2023 Basophil, [...] 09-14-2023 Magnesium [Mass/Vol] 1.9 mg/dL Normal 1.8-2.4 [facility] ([place]) Comment on above: Performed By: #### G FR, CBC, ADIFF, ANEU, BMP #### [address] [address] ABO/Rh (Gel)on 09-13-2023 ABO/Rh Interp Negative Invalid Interpretation Code [facility] ([place]) Comment on above: Performed By: #### G FR, CBC, ADIFF, ANEU, BMP #### [address] [address] ABS (Gel)on 09-13-2023 ABSC Interp (Gel) Negative Normal [facility] ([place]) Comment on above: Performed By: #### G FR, CBC, ADIFF, ANEU, BMP #### [address] [address] LABORATORYOrdered By: Harrison Zavala on 09-13-2023 ABO [...] 09/13/2023 1:03:18 PM Ordering Provider: ANDRIY Beach [facility] ([place]) .Auto Diffon 08-17-2023 Basophil, Absolute 0.0 10 3/mcL Normal 0.0-0.2 [facility] ([place]) Comment on above: Performed By: #### G FR, ANEU, ADIFF, CBC, ALB, BMP, ABOGEL, ABSGEL #### [address] [address] Basophils/100 WBC (Bld) 0.7 % Normal 0.0-2.5 [facility] ([place]) Comment on above: Performed By: #### G FR, ANEU, ADIFF, CBC, ALB, BMP, ABOGEL, ABSGEL #### [address] [address] Eosinophil, Absolute 0.1 10 3/mcL Normal 0.0-0.4 [facility] ([place]) Comment on above: Performed By: #### G FR, ANEU, ADIFF, CBC, ALB, BMP, ABOGEL, ABSGEL #### [address] [address] Eosinophils/100 WBC (Bld) 1.7 % Normal 0.0-7.0 [facility] ([place]) Comment on above: Performed By: #### G FR, ANEU, ADIFF, CBC, ALB, BMP, ABOGEL, ABSGEL #### [address] [address] Lymphocyte, Absolute 2.1 10 3/mcL Normal 0.8-3.9 [facility] ([place]) Comment on above: Performed By: #### G FR, ANEU, ADIFF, CBC, ALB, BMP, ABOGEL, ABSGEL #### [address] [address] Lymphocytes/100 WBC (Bld) 30.6 % Normal 10.0-50.0 [facility] ([place]) Comment on above: Performed By: #### G FR, ANEU, ADIFF, CBC, ALB, BMP, ABOGEL, ABSGEL #### [address] [address] Monocyte, Absolute 0.5 10 3/mcL Normal 0.2-1.0 [facility] ([place]) Comment on above: Performed By: #### G FR, ANEU, ADIFF, CBC, ALB, BMP, ABOGEL, ABSGEL #### [address] [address] Monocytes/100 WBC (Bld) 7.7 % Normal 1.7-13.0 [facility] ([place]) Comment on above: Performed By: #### G FR, ANEU, ADIFF, CBC, ALB, BMP, ABOGEL, ABSGEL #### [address] [address] Neutrophils/100 WBC (Bld) 59.3 % Normal 37.0-80.0 [facility] ([place]) Comment on above: Performed By: #### G FR, ANEU, ADIFF, CBC, ALB, BMP, ABOGEL, ABSGEL #### [address] [address] .GFRon 08-17-2023 GFR Non- 99 ml/min/1.73sqm Normal [facility] ([place]) Comment on above: Result Comment: GFR Population [...] G FR, CBC, ADIFF, ANEU, BMP #### [address] [address] GFR 120 ml/min/1.73sqm Normal [facility] ([place]) Comment on above: Result Comment: GFR Population [...] G FR, CBC, ADIFF, ANEU, BMP #### [address] [address] .NEUABSon 08-17-2023 Neutrophil, Absolute 4.0 10 3/mcL Normal 2.9-6.2 [facility] ([place]) Comment on above: Performed By: #### G FR, ANEU, ADIFF, CBC, ALB, BMP, ABOGEL, ABSGEL #### [address] [address] ABO/Rh (Gel)on 08-17-2023 ABO/Rh Interp Negative Invalid Interpretation Code [facility] ([place]) Comment on above: Performed By: #### G FR, CBC, ADIFF, ANEU, BMP #### [address] [address] ABS (Gel)on 08-17-2023 ABSC Interp (Gel) Negative Normal [facility] ([place]) Comment on above: Performed By: #### G FR, CBC, ADIFF, ANEU, BMP #### [address] [address] ALBon 08-17-2023 Albumin Level 3.7 G/dL Normal 3.4-4.8 [facility] ([place]) Comment on above: Performed By: #### G FR, CBC, ADIFF, ANEU, BMP #### [address] [address] BMPon 08-17-2023 BUN/Creatinine Ratio 25 ratio Normal 7-27 [facility] ([place]) Comment on above: Performed By: #### G FR, ANEU, ADIFF, CBC, ALB, BMP, ABOGEL, ABSGEL #### [address] [address] Calcium [Mass/Vol] 8.3 mg/dL Low 8.4-10.2 [facility] ([place]) Comment on above: Performed By: #### G FR, ANEU, ADIFF, CBC, ALB, BMP, ABOGEL, ABSGEL #### [address] [address] Chloride [Moles/Vol] 104 mmol/L Normal 98-107 [facility] ([place]) Comment on above: Performed By: #### G FR, ANEU, ADIFF, CBC, ALB, BMP, ABOGEL, ABSGEL #### [address] [address] CO2 [Moles/Vol] 27 mmol/L Normal 23-31 [facility] ([place]) Comment on above: Performed By: #### G FR, ANEU, ADIFF, CBC, ALB, BMP, ABOGEL, ABSGEL #### [address] [address] Creatinine [Mass/Vol] 0.79 mg/dL Normal 0.70-1.30 [facility] ([place]) Comment on above: Performed By: #### G FR, ANEU, ADIFF, CBC, ALB, BMP, ABOGEL, ABSGEL #### [address] [address] Electrolyte Balance 10.0 mEq/L Normal 4.0-15.0 [facility] ([place]) Comment on above: Performed By: #### G FR, ANEU, ADIFF, CBC, ALB, BMP, ABOGEL, ABSGEL #### [address] [address] Glucose [Mass/Vol] 86 mg/dL Normal 80-115 [facility] ([place]) Comment on above: Performed By: #### G FR, ANEU, ADIFF, CBC, ALB, BMP, ABOGEL, ABSGEL #### [address] [address] Potassium [Moles/Vol] 4.6 mmol/L Normal 3.5-5.1 [facility] ([place]) Comment on above: Performed By: #### G FR, ANEU, ADIFF, CBC, ALB, BMP, ABOGEL, ABSGEL #### [address] [address] Sodium [Moles/Vol] 141 mmol/L Normal 136-145 [facility] ([place]) Comment on above: Performed By: #### G FR, ANEU, ADIFF, CBC, ALB, BMP, ABOGEL, ABSGEL #### [address] [address] Urea nitrogen [Mass/Vol] 20 mg/dL High 7-18 [facility] ([place]) Comment on above: Performed By: #### G FR, ANEU, ADIFF, CBC, ALB, BMP, ABOGEL, ABSGEL #### [address] [address] CBCon 08-17-2023 Erythrocyte distribution width (RBC) [Ratio] 12.9 % Normal 11.5-14.5 [facility] ([place]) Comment on above: Order Comment: Pre-A dmission Testing Performed By: #### G FR, ANEU, ADIFF, CBC, ALB, BMP, ABOGEL, ABSGEL #### [address] [address] Hematocrit (Bld) [Volume fraction] 38.5 % Low 42.0-52.0 [facility] ([place]) Comment on above: Order Comment: Pre-A dmission Testing Performed By: #### G FR, ANEU, ADIFF, CBC, ALB, BMP, ABOGEL, ABSGEL #### [address] [address] Hgb 12.9 G/dL Low 14.0-18.0 [facility] ([place]) Comment on above: Order Comment: Pre-A dmission Testing Performed By: #### G FR, ANEU, ADIFF, CBC, ALB, BMP, ABOGEL, ABSGEL #### [address] [address] MCH (RBC) [Entitic mass] 31.5 pg High 27.0-31.2 [facility] ([place]) Comment on above: Order Comment: Pre-A dmission Testing Performed By: #### G FR, ANEU, ADIFF, CBC, ALB, BMP, ABOGEL, ABSGEL #### [place] [id number] MCHC 33.6 G/dL Normal 31.8-35.4 [facility] ([place]) Comment on above: Order Comment: Pre-A dmission Testing Performed By: #### G FR, ANEU, ADIFF, CBC, ALB, BMP, ABOGEL, ABSGEL #### [address] [address] MCV (RBC) [Entitic vol] 93.6 fL Normal 80.0-94.0 [facility] ([place]) Comment on above: Order Comment: Pre-A dmission Testing Performed By: #### G FR, ANEU, ADIFF, CBC, ALB, BMP, ABOGEL, ABSGEL #### [address] [address] Platelet 277 10 3/mcL Normal 130-400 [facility] ([place]) Comment on above: Order Comment: Pre-A dmission Testing Performed By: #### G FR, ANEU, ADIFF, CBC, ALB, BMP, ABOGEL, ABSGEL #### [address] [address] Platelet mean volume (Bld) [Entitic vol] 8.7 fL Normal 7.4-10.4 [facility] ([place]) Comment on above: Order Comment: Pre-A dmission Testing Performed By: #### G FR, ANEU, ADIFF, CBC, ALB, BMP, ABOGEL, ABSGEL #### [address] [place], [place] [address] RBC 4.11 10 6/mcL Normal 4.04-6.13 [facility] ([place]) Comment on above: Order Comment: Pre-A dmission Testing Performed By: #### G FR, ANEU, ADIFF, CBC, ALB, BMP, ABOGEL, ABSGEL #### [address] [place], [place] [address] WBC 6.8 10 3/mcL Normal 4.6-10.8 [facility] ([place]) Comment on above: Order Comment: Pre-A dmission Testing Performed By: #### G FR, ANEU, ADIFF, CBC, ALB, BMP, ABOGEL, ABSGEL #### [address] [address] [address] KNEE W/O CONTRAST LEFTon 08-17-2023 CT [...] 08/17/2023 4:31:16 PM Ordering Provider: ANDRIY Beach [facility] ([place]) LABORATORYOrdered By: Vick Ramsey on 08-17-2023 ABO [...] 1 (08/17/23 2:22 PM) Normal Not Detected AH Auto Viro/Sero SS Comment on above: [place]: [place] [id number] MRSA PCR Int MRSA DNA not detected [...] may not be reproducible. Invalid Interpretation Code AH Auto Viro/Sero SS MRSAPCRon 08-17-2023 MRSA (PCR) Not detected Normal Not Detected [facility] ([place]) Comment on above: Result Comment: [place] [id number] Performed By: #### G FR, CBC, ADIFF, ANEU, BMP #### [address] [place], [place] [address] MRSA PCR Int Normal [facility] ([place]) Comment on above: Result Comment: MRSA DNA [...] G FR, CBC, ADIFF, ANEU, BMP #### [address] [place], [place] [address] ED NOTEon 04-05-2018 ED NOTE HNO ID: [id number] Author: Jannette (Rn) ZARINA Ramachandran Service: (none) Author Type: Registered Nurse Type: ED Notes Filed: 04/05/2018 10:57 AM Note Text: Sling applied to right arm. Use and care of sling inst given. Pt did teach back well. Discharge instructions given via teach back, verbalized good understanding. D/C home with . [facility] ED NOTE HNO ID: [id number] Author: Bhavani Metz Service: (none) Author Type: (none) Type: ED Notes Filed: 04/05/2018 8:34 AM Note Text: Pt stated that he was lifting a 175 lb perfanvil at work and noticed a sharp pain that shot up from the wrist to his bicep on the right arm. Pt has good cap refill, good pulses, and senses are intact. [facility] ED PROV NOTEon 04-05-2018 Protein mass conc HNO ID: [id number] Author: Rhett Palencia III, MD Service: Emergency [...] Laterality Date - COLONOSCOP W/ OR W/O [facility] SPEC Colonoscopy - PAST SURGICAL HISTORY OF brain tumor removal - PAST SURGICAL HISTORY OF 07/23/2002 ganglion cyst wrist removed form left - PAST SURGICAL HISTORY OF 08/12/04 hernia x 3 FAMILY HISTORY Problem Relation Age of Onset - Colon Cancer Father , 50s - Hypertension Mother - Heart Mother [place] - other (glaucoma [Other]) Sister Social History [...] Victor III, III, MD 04/06/18 1541 Normal [facility] Vital Signs Date Time Vital Sign Value Performing Clinician Facility 11-09-2024 09:01-0400 Body height 182.[address] Caitlyn Casanova MD Work Phone: [facility] 11-09-2024 09:01-0400 Body mass index (BMI) [Ratio] 32 kg/m2 Dr. Caitlyn Casanova MD Work Phone: [facility] 11-09-2024 09:01-0400 Body weight 107.[address] Caitlyn Casanova MD Work Phone: [facility] 11-09-2024 09:01-0400 Diastolic blood pressure 84 mm[Hg] Dr. Caitlyn Casanova MD Work Phone: [facility] 11-09-2024 09:01-0400 Heart rate 68 /min Dr. Caitlyn Casanova MD Work Phone: [facility] 11-09-2024 09:01-0400 Respiratory rate 18 /min Dr. Caitlyn Casanova MD Work Phone: [facility] 11-09-2024 09:01-0400 SaO2% (BldA) [Mass fraction] 93 % Dr. Caitlyn Casanova MD Work Phone: [facility] 11-09-2024 09:01-0400 Systolic blood pressure 165 mm[Hg] Dr. Caitlyn Casanova MD Work Phone: [facility] 09-14-2023 11:30-0400 Body temperature 98.24 [degF] DR ANDRIY BAER MD [facility] 09-14-2023 11:30-0400 Diastolic Blood Pressure Non-Invasive 70 mm[Hg] DR ANDRIY BAER MD [facility] 09-14-2023 11:30-0400 Heart rate 73 /min DR ANDRIY BAER MD [facility] 09-14-2023 11:30-0400 Reason For Taking VItal Signs DR ANDRIY BAER MD [facility] 09-14-2023 11:30-0400 Respiratory rate 16 /min DR ANDRIY BAER MD [facility] 09-14-2023 11:30-0400 Systolic Blood Pressure Non-Invasive 147 mm[Hg] DR ANDRIY BAER MD [facility] 09-14-2023 06:20-0400 Body temperature 97.52 [degF] DR ANDRIY BAER MD [facility] 09-14-2023 06:20-0400 Diastolic Blood Pressure Non-Invasive 43 mm[Hg] DR ANDRIY BAER MD [facility] 09-14-2023 06:20-0400 Heart rate 65 /min DR ANDRIY BAER MD [facility] 09-14-2023 06:20-0400 Reason For Taking VItal Signs DR ANDRIY BAER MD [facility] 09-14-2023 06:20-0400 Respiratory rate 16 /min DR ANDRIY BAER MD [facility] 09-14-2023 06:20-0400 Systolic Blood Pressure Non-Invasive 118 mm[Hg] DR ANDRIY BAER MD [facility] 09-14-2023 04:37-0400 Body temperature 97.52 [degF] DR ANDRIY BAER MD [facility] 09-14-2023 04:37-0400 Diastolic Blood Pressure Non-Invasive 57 mm[Hg] DR ANDRIY BAER MD [facility] 09-14-2023 04:37-0400 Heart rate 78 /min DR ANDRIY BAER MD [facility] 09-14-2023 04:37-0400 Reason For Taking VItal Signs DR ANDRIY BAER MD [facility] 09-14-2023 04:37-0400 Respiratory rate 16 /min DR ANDIRY BAER MD [facility] 09-14-2023 04:37-0400 Systolic Blood Pressure Non-Invasive 122 mm[Hg] DR ANDRIY BAER MD [facility] 09-13-2023 13:39-0400 Body height [address] ANDRIY BAER MD [facility] 09-13-2023 13:39-0400 Body weight 108.[address] ANDRIY BAER MD [facility] 09-13-2023 13:39-0400 Body weight 32.76 kg/m2 DR ANDRIY BAER MD [facility] 09-13-2023 12:20-0400 Body temperature 96.98 [degF] DR ANDRIY BAER MD [facility] 09-13-2023 12:15-0400 Respiratory Rate - Anes 0 br/min DR ANDRIY BAER MD [facility] 09-13-2023 12:10-0400 Respiratory Rate - Anes 12 br/min DR ANDRIY BAER MD [facility] 09-13-2023 12:05-0400 Respiratory Rate - Anes 12 br/min DR ANDRIY BAER MD [facility] 09-13-2023 08:20-0400 Body height [address] ANDRIY BAER MD [facility] 09-13-2023 08:20-0400 Body temperature 97.52 [degF] DR ANDRIY BAER MD [facility] 09-13-2023 08:20-0400 Body weight 108.[address] ANDRIY BAER MD [facility] 09-13-2023 08:20-0400 Heart rate 62 /min DR ANDRIY BAER MD [facility] 08-17-2023 13:43-0400 Blood Pressure Cuff Size DR ANDRIY BAER MD [facility] 08-17-2023 13:43-[address] ANDRIY BAER MD [facility] 08-17-2023 13:43-[address] ANDRIY Jimenez [facility] 08-17-2023 13:43-0400 Body height 182.[address] ANDRIY BAER MD [facility] 08-17-2023 13:43-0400 Body weight 106.[address] ANDRIY BAER MD [facility] 08-17-2023 13:43-0400 Body weight 31.75 kg/m2 DR ANDRIY BAER MD [facility] 08-17-2023 13:43-0400 Diastolic Blood Pressure Non-Invasive 84 mm[Hg] DR ANDRIY BAER MD [facility] 08-17-2023 13:43-0400 Heart rate 52 /min DR ANDRIY BAER MD [facility] 08-17-2023 13:43-0400 Systolic Blood Pressure Non-Invasive 160 mm[Hg] DR ANDRIY BAER MD [facility] 03-02-2023 05:13-0500 Diastolic blood pressure 89 mm[Hg] [facility] 03-02-2023 05:13-0500 Heart rate 78 /min [facility] 03-02-2023 05:13-0500 Respiratory rate 15 /min [facility] 03-02-2023 05:13-0500 SaO2% (BldA) [Mass fraction] 98 % [facility] 03-02-2023 05:13-0500 Systolic blood pressure 126 mm[Hg] [facility] 03-02-2023 04:09-0500 Body height 182.88 cm [facility] 03-02-2023 04:09-0500 Body temperature 97.3 [degF] [facility] Encounters Encounter Date Encounter Type Care Provider Facility Start: 11-09-2024 End: 11-09-[address] Damon Maddox MD -[facility] Work Phone: Start: 11-09-2024 End: 11-09-[address] Caitlyn Casanova MD Work Phone: -[facility] Start: 09-05-2024 Encounter for genera l adult medical examination without abnormal findings [facility] Start: 08-31-2024 End: 08-31-[address] Caitlyn Casanova MD Work Phone: [facility] Work Phone: Start: 08-31-2024 End: 08-31-[address] Caitlyn Casanova MD -[facility] Start: 08-31-2024 End: 08-31-2024 ambulatory Caitlyn Misoheila Facility:[facility] Start: 01-06-2024 End: 01-06-2024 ambulatory [facility] Facility:[facility] Start: 12-30-2023 End: 12-30-2023 ambulatory [facility] Facility:[facility] Start: 09-13-2023 End: 09-14-[address] ANDRIY BAER MD Facility:B Start: 09-13-2023 End: 09-14-[address] ANDRIY BAER MD [facility] Start: 08-17-2023 End: 08-17-[address] ANDRIY BAER MD Facility:[facility] Start: 08-17-2023 End: 08-17-[address] ANDRIY BAER MD [facility] Start: 08-17-2023 End: 08-17-[address] ANDRIY BAER MD [facility] Start: 08-17-2023 End: 08-17-[address] ANDRIY BAER MD Facility:[facility] Start: 03-02-2023 End: 03-02-2023 Emergency department patient visit [facility] Work Phone: Start: 04-05-2018 End: 04-05-2018 Emergency department patient visit Health system Procedures Date Procedure Procedure Detail Performing Clinician [...] Treatment Date Care Activity Detail Author Start: 11-09-2024 [facility] of [facility] study results [facility] Start: 03-02-2023 [facility] Evaluation of [facility] study results [facility] Patient Education ED Back Pain (Acute or Chronic) [facility] Work Phone: Patient referral [facility] Work Phone: Stress echocardiography [facility] Immunizations Immunization Date Immunization Notes Care Provider Ramirez schafer 02-27-2021 SARS-CoV-2 mRNA (toambrosionameran) vaccine DR ANDRIY BAER MD [facility] 06-20-2020 Covid (Pfizer) [facility] 05-30-2020 Covid (Pfizer) [facility] Comment on above: Result Comment: 2023: [id number] Payers Date Payer Category Payer Self-pay [id number] 2012 Private Health Insurance [id number] 1960 Unknown [id number] [id number] [id number] 1960 Unknown [id number] 2.16.8 [id number] 1960 Unknown [id number] 2.16.8 [id number] Unknown [id number] 2.16.8 [id number] Unknown [id number] 2.16.8 [id number] Unknown [id number] 2.16.8 [id number] Unknown [id number] 2.16.8 [id number] Social History Date Type Detail Facility Start: 03-02-[address] [facility] Start: 1960 Sex Assigned At Male [facility] Start: 08-17-2023 End: 11-09-2024 Tobacco smoking status Never smoked tobacco (finding) [facility] Sex Assigned At Sex [facility] Functional Status Date Assessment Result Facility 09-14-2023 Functional Status Mod I Ladan monson [facility] 09-14-2023 Functional Status Front wheeled walker [facility] 09-14-2023 Functional Status Ladan monson [facility] 09-14-2023 Functional Status Identified as high risk, Fall ID band on, Room located near nursing station, Door open, Non-Slip footwear [facility] 09-14-2023 Functional Status Ladan monson [facility] 09-14-2023 Functional Status Ladan monson [facility] 09-13-2023 Functional Status Ladan monson [facility] 09-13-2023 Functional Status Up to chair Ladan monson [facility] 09-13-2023 Functional Status Ladan monosn [facility] 09-13-2023 Functional Status Dinner Percent 100 [facility] 09-13-2023 Functional Status Supervised Ladan Ma [facility] 09-13-2023 Functional Status 1st floor bedr oom, 1st floor bathroom [facility] 09-13-2023 Functional Status Ladan monson [facility] 09-13-2023 Functional Status NPO Status Maintained A [facility] 09-13-2023 Functional Status Ladan monson [facility] 08-17-2023 Functional Status Sensory Deficits None A [facility] Mental Status Date Assessment Result Facility 09-14-2023 Mental Status Oriented x 4 [facility] 09-13-2023 Mental Status [facility] 09-13-2023 Mental Status [facility] Clinical Notes 08-17-2023 to 09-14-2023 Note Date [...] JACOBSEN on 09/14/2023 02:18 PM [facility] 09-14-2023 Hospital Discharge instructions Patient Education 09/14/2023 10:51:34 Total Knee Replacement, Care After, Wnrh-gv-Jqya Total Knee Replacement, Care After This sheet [...] Follow these instructions at home: Medicines Take hase-bhv-ccmnqtr and prescription medicines only as told by [...] keep your pee (urine) pale yellow. ?Take iobt-vme-imdqquc or prescription medicines. ?Eat foods that are [...] cannot use soap and water, use hand trimmer machine operator. ?Change your bandage as told by your [...] 05/22/2012 Document Revised: 07/09/2019 Document Reviewed: 10/12/2018 [employer] Patient Education 2020 [employer]. 09/14/2023 07:45:25 5 - [facility] Post-op Instruction 10/2016 (05164) [facility] Post-operative Instructions PLEASE FOLLOW [facility] POST-OP INSTRUCTIONS GIVEN WATCH FOR SIGNS OF INFECTION: call the office ([phone]) if experencing any of the following: (Usually [...] on your follow up instructions. Form: 338A (65426) R: 07/18 Follow Up Care 08/12/2023 13:30:46 With:[facility] Address: [address] [place] [address] [phone] When:09/16/2023 13:30:00 Comments:This is your first physical therapy appointment. Follow-up as scheduled. With:JAZZMINE AMARO PA-C, Orthopedic Address: [facility] [address] [place] [address]- When:09/28/2023 15:15:00 Comments:This is your post-op appointment. Follow-up as scheduled. [facility] 09-14-2023 Note Discharge Instructions Thank you for allowing [facility] to assist you with your healthcare needs. The following is important discharge information regarding your hospital visit. Your Care Team Andriy Baer MD Your Diagnosis Allergies Arthritis Back pain Status post total left knee replacement What to do next Follow Up Appointments Follow Up with [facility] When:09/16/2023 01:30 PM EDT Where:[address] [place] [address]- [phone] Additional Information: This is your first physical therapy appointment. Follow-up as scheduled. Follow Up with JAZZMINE AMARO PA-C, Orthopedic When:09/28/2023 03:15 PM EDT Where:[facility] [address] [place] [address]- Additional Information: This is your post-op appointment. [...] postoperatively for DVT prophylaxis. Pickup at [facility]/pharmacy #3321 New docusate-senna (Senokot S 50 mg-8.6 mg oral tablet) 2 tab(s) by mouth Two (2) times a day Duration: 3 Days Take until first bowel movement, then as needed Pickup at [facility]/pharmacy #3321 New famotidine (Pepcid 20 mg oral tablet) 1 tab(s) by mouth Once a day Pickup at [facility]/pharmacy #3321 New oxyCODONE (oxyCODONE 5 mg oral tablet ( IMMEDIATE release )) See instructions Status post total left knee replacement 1-2 tab(s) Oral q4h, As needed for as needed for pain Pickup at [facility]/pharmacy #3321 Unchanged loratadine (Claritin 10 mg oral tablet) 1 tab(s) by mouth Once a day Unchanged meloxicam (meloxicam 15 mg oral tablet) TAKE 1 TABLET BY MOUTH ONCE DAILY Pharmacy Information [facility]/pharmacy #[id number]: [address] [place], [place] [phone] Please take this list to your next [...] What is aspirin? Aspirin is a salicylate (uj-PNE-te-ate) that is used to treat pain, and [...] may report side effects to FDA at 3-568-ZRF-2062. What other drugs will affect aspirin? Ask [...] drugs may affect aspirin, including prescription and swny-tjn-dotpara medicines, vitamins, and herbal products. Not all [...] to ensure that the information provided by [employer]. ('[employer]') is accurate, up-to-date, and complete, but no guarantee is made to that effect. Drug information contained herein may be time sensitive. [employer] information has been compiled for use by healthcare practitioners and consumers in the [place] and therefore [employer] does not warrant that uses outside of the [place] are appropriate, unless specifically indicated otherwise. [employer]s drug information does not endorse drugs, diagnose patients or recommend therapy. [employer]s drug information is an informational resource designed [...] effective or appropriate for any given patient. [employer] does not assume any responsibility for any aspect of healthcare administered with the aid of information [employer] provides. The information contained herein is not intended to cover all possible uses, directions, precautions, warnings, drug interactions, allergic reactions, or adverse effects. If you have questions about the drugs you are taking, check with your doctor, nurse or pharmacist. Copyright 0538-3060 [employer]. Version: 18.. Revision Date: 10/04/2022. famotidine (oral/injection) [...] may report side effects to FDA at 9-640-ANV-9912. What other drugs will affect famotidine? Famotidine oral can make it harder for your body to absorb other medicines you take by mouth. Tell your doctor if you are taking: cefditoren; dasatinib; delavirdine; fosamprenavir; or tizanidine (if you are taking famotidine liquid). This list is not complete. Other drugs may affect famotidine, including prescription and rfep-xlf-vaaeapy medicines, vitamins, and herbal products. Not all [...] to ensure that the information provided by [employer]. ('[employer]') is accurate, up-to-date, and complete, but no guarantee is made to that effect. Drug information contained herein may be time sensitive. [employer] information has been compiled for use by healthcare practitioners and consumers in the [place] and therefore [employer] does not warrant that uses outside of the [place] are appropriate, unless specifically indicated otherwise. [employer]s drug information does not endorse drugs, diagnose patients or recommend therapy. [employer]s drug information is an informational resource designed [...] effective or appropriate for any given patient. [employer] does not assume any responsibility for any aspect of healthcare administered with the aid of information [employer] provides. The information contained herein is not intended to cover all possible uses, directions, precautions, warnings, drug interactions, allergic reactions, or adverse effects. If you have questions about the drugs you are taking, check with your doctor, nurse or pharmacist. Copyright 8009-8256 [employer]. Version: .. Revision Date: 10/04/2022. docusate and senna (DOK [...] may report side effects to FDA at 6-764-TZQ-8903. What other drugs will affect docusate and senna? Other drugs may affect docusate and senna, including prescription and jcwi-bvv-vknrwyq medicines, vitamins, and herbal products. Tell your [...] to ensure that the information provided by [employer] ('[employer]') is accurate, up-to-date, and complete, but no guarantee is made to that effect. Drug information contained herein may be time sensitive. [employer] information has been compiled for use by healthcare practitioners and consumers in the [place] and therefore [employer] does not warrant that uses outside of the [place] are appropriate, unless specifically indicated otherwise. [employer]s drug information does not endorse drugs, diagnose patients or recommend therapy. [employer]s drug information is an informational resource designed [...] effective or appropriate for any given patient. [employer] does not assume any responsibility for any aspect of healthcare administered with the aid of information [employer] provides. The information contained herein is not intended to cover all possible uses, directions, precautions, warnings, drug interactions, allergic reactions, or adverse effects. If you have questions about the drugs you are taking, check with your doctor, nurse or pharmacist. Copyright 0021-1509 [employer]. Version: 5.01. Revision Date: 10/18/2022. oxycodone (ox [...] were not tolerated. Extended-release oxycodone is for vwbwxk-nmj-peuwp treatment of severe and chronic pain that [...] by your doctor. Stop taking all other hfrlwy-gmt-ejmxm opioid pain medicines when you start taking [...] may report side effects to FDA at 8-551-SRQ-5049. What other drugs will affect oxycodone? You [...] may affect oxycodone. This includes prescription and omcn-gco-otepirv medicines, vitamins, and herbal products. Not all [...] to ensure that the information provided by [employer]. ('[employer]') is accurate, up-to-date, and complete, but no guarantee is made to that effect. Drug information contained herein may be time sensitive. [employer] information has been compiled for use by healthcare practitioners and consumers in the [place] and therefore [employer] does not warrant that uses outside of the [place] are appropriate, unless specifically indicated otherwise. [employer]s drug information does not endorse drugs, diagnose patients or recommend therapy. [employer]s drug information is an informational resource designed [...] effective or appropriate for any given patient. [employer] does not assume any responsibility for any aspect of healthcare administered with the aid of information [employer] provides. The information contained herein is not intended to cover all possible uses, directions, precautions, warnings, drug interactions, allergic reactions, or adverse effects. If you have questions about the drugs you are taking, check with your doctor, nurse or pharmacist. Copyright 9677-8545 [employer]. Version: 17.. Revision Date: 04/05/2023. Education Materials [...] Follow these instructions at home: Medicines Take awkk-pks-rvwnjqg and prescription medicines only as told by [...] your pee (urine) pale yellow. ? Take zhzj-jal-bcqmlza or prescription medicines. ? Eat foods that [...] cannot use soap and water, use hand trimmer machine operator. ? Change your bandage as told by [...] 05/22/2012 Document Revised: 07/09/2019 Document Reviewed: 10/12/2018 Elsevier Patient Education 2020 [employer] [facility] Post-operative Instructions PLEASE FOLLOW [facility] POST-OP INSTRUCTIONS GIVEN WATCH FOR SIGNS OF INFECTION: call the office ([phone]) if experencing any of the following: (Usually [...] on your follow up instructions. Form: 338A (75394) R: 07/18 Additional Information VACCINATE! IT SAVES LIVES! Members of the community who have not yet received the COVID-19 vaccine and would like to receive it can visit one of [facility] vaccine clinics. There are many vaccine clinic locations within the [facility]. For locations and available times, please visit [email or web address] It is important to note that some COVID mobile vaccine clinics are held outdoors and may be canceled in rainy or stormy conditions. To learn more about pediatric vaccinations (ages 5-11), we invite you to visit the [facility] webpage. [email or web address]/pages [email or web address]-Xgiyq-Hcjtunlhyud-Frequently-A sked-Questions.html To learn more about the COVID-19 vaccine, we invite you to visit the CDC website for a list of frequently asked questions.https://www.cdc.gov/[place] virus/2019-ncov/vaccines/faq.html [email or web address] Patient Portal Access Instructions: Stay connected with your healthcare team and access your personal medical information anytime with the [email or web address] Patient Portal. Please follow the directions below to create your [email or web address] account: 1.Access the email account you provided upon registration to the (more content not included)... [facility] 09-14-2023 Note Date of Service [...] appointment on Tuesday, September 16, 2023 at [facility]. He will follow-up per postoperative instructions. Patient did initially want his prescriptions E scribed to [facility] in [place] however I did recommend we send it to [facility] due to problems with narcotics and prescriptions at [facility]. I did discuss this with him and his over the phone. He would like his prescriptions E scribed to [facility] in [facility]. Upon discharge patient will contact our office with any concerns or questions. I have reviewed the [place] Automated Rx Reporting System (OARRS) report for [...] PA-C on 09/14/2023 07:45 AM [facility] 09-13-2023 Note ORIGINAL EXAMINATION: TWO [...] Date: 09/13/2023 1:03:18 PM [facility]iology Consult note Patient: ISIDRO GRIMALDO Age: 63 years Sex: Male : 1960 Associated Diagnoses: None Author: ADRIANO DAVIS Preoperative Information Time of last food or [...] list: Medical Back pain / SNOMED CT 1712206167 / Confirmed Brain tumor / SNOMED CT 0153412786 / Confirmed Preoperative evaluation for tubal ligation / SNOMED CT 765334259 / Confirmed, Active Problems (6) Arthritis Back pain Brain tumor Preoperative evaluation for tubal ligation Seizure WPW (Cuuws-Cxszqlqur-Aeduv syndrome) Histories Past Medical History: No active or resolved past medical history items have been selected or recorded. Family History: Entire family history is negative. Procedure history: Melanoma in situ (503519307). Comments: 08/17/2023 13:32 Mohini Singh RN FACE Umbilical hernia ([id number]). Arthroscopy of knee (709262419). Comments: 08/17/2023 13:32 Mohini Singh RN RIGHT Inguinal hernia ([id number]). Comments: 08/17/2023 13:33 Mohini Singh RN RIGHT Tumor ([id number]). Comments: 08/17/2023 13:35 Mohini Singh RN NONCANCEROUS [...] Signs (last 24 hrs) Last Charted Temp Ytccqfxr31.4 DegC (SEP 12 08:20) Heart Rate Ocegiitvv05 bpm (SEP 12 11:00) HKW755 mmHg (SEP 12 10:55) DBP53 mmHg (SEP 12 10:55) Measurements from flowsheet : Measurements 09/13/2023 8:20 EDT Height 182 cm Height in inches 71.7 inch(es) Admission Weight 108.5 kg Weight Lbs 238.7 lb [place] Body Weight 76.80 kg Admission Body Mass [...] Provider #1 Bedside Time Out ADRIANO DAVIS APRN-MUSIC PASTOR Provider #2 Bedside Time Out Morelia Evangelista [...] Surgeon SN - CAt - Role Performed Medical Technical Writer 1 SN - CAt - Role Performed MUSIC PASTOR SN - CAt - Role Performed Track Welder 1 SN - CAt - Role Performed Scrub 1 SN - CAt - Role Performed Dope House Operator Helper 09/13/2023 9:18 EDT Able To Drink Order [...] Transport Mode Order Detail Bed and Nurse Aerial Lineman Details Form Aerial Lineman Details Form 09/13/2023 9:16 EDT Forearm Right [...] Person #1 We May Share MIRYAM GRIMALDO [phone] Designated Person #1 Relationship Spouse Privacy Restrictions [...] Education NPO after midnight, No jewelry, Responsible Republican, Aware of surgery location, Pre-op education done, 1 bottle CHG wash with instructions given, No ordered medications, Total Joint Replacement/Colorectal Book Given, SSI prevention handout given, Anesthesia block education provided SN - Preprocedure Comments Spoke with patient, Verbalizes/Nonverbally indicates understanding Barriers to Learning None evident Teaching Method Explanation Preferred Spoken Language Arabic Preferred Written Language Arabic Teaching Evaluation Verbalizes/Nonverbally indicates understanding Total Joint [...] Weight 108.5 kg Weight Lbs 238.7 lb [place] Body Weight 76.80 kg Admission Body Mass [...] ethnicity Skin Integrity Intact Mucous Membrane Color [place] Skin Moisture General Dry IV Present Present Neurological Symptoms Patient denies Extremity Movement Equal Characteristics of Speech Clear Level of Consciousness Alert EMERITA Yes Strength All Extremities Strong Affect/Behavior Appropriate, Calm, Cooperative Orientation Oriented x 4 Allergies Yes Anesthesia Extension Set Applied Yes Exchange Floor Manager On Yes Consent Form Signed Yes [...] Room 09/13/2023 8:18 . Assessment and Plan [place] [employer] Anesthesiologists (ASA) physical status classification: Class II. Anesthetic Preoperative Plan Premedication: intravenous. Anesthetic technique: Spinal. Induction: intravenously. Maintenance airway: FM. Postoperative pain management: Per surgeon. Risks discussed: nausea. Informed consent: signed by patient. Digitally Signed by ADRIANO DAVIS on 09/13/2023 11:09 AM [facility] 08-17-2023 Note ORIGINAL EXAMINATION: CT [...] PM Ordering Provider: ANDRIY BAER [facility] Discharge summary Note Date/Time March 02, 2023 7:25am [facility] Medical Records Department [address] [place] [address] Emergency Department Summary 03/02/23 MR#: [id number] Acct: [id number] Name: ISIDRO GRIMALDO Rep #:[id number] : 1960 62 From: Stanley Rasmussen MD [...] acute trauma. He hasnever had back surgery. [facility] Medical History Back pain Brain tumor Cancer of skin, face Zmavq-Ikcfgomsg-Kyqsc (WPW) syndrome Home Medications hydrocodone-acetaminophen 5-325mg 5mg-325mg [...] Referrals: Janet Apple MD [Med Staff - Tube Laser Operator] - 3-5 Days if not improving Activity Restrictions/Additional Instructions: Follow-up with your doctor or referral as above. Disposition Disposition: Home, Self Care What to do if you have Problems For any increased pain, shortness of breath, bleeding, nausea or vomiting, chestpain, or any unexpected problems, contact your Primary Care Provider. Call [facility] ([phone]) or report to the closest Emergency Room. Call 911 if necessary. 03/02/23 0430 <Electronically signed by Stanley Rasmussen MD> Cosigner Signature (if applicable): CC: No Primary Care Physician ~ Signed [facility] Work Phone: Evaluation + Plan note Future Appointments Appointment Date:08/29/2023 01:00:00 PM Scheduled Provider: Location:[facility] Appointment Type:CV LAST CODE STRIPER [facility] Evaluation noteNo assessment information available [facility] Work Phone: Evaluation note* Diagnosis Onset Date Resolution Status Admit Date Hyperlipidemia acute October 8:57am PVCs (premature ventricular contractions) acute November 09 8:57am [facility] Work Phone: Hospital course Narrative No data available for this section [facility] Hospital Discharge instructions Additional Instructions Follow-up with your doctor or referral as above.[facility] Work Phone: Hospital Discharge instructions No data available for this section [facility] Progress note No data available for this section [facility] Reason for referral (narrative)No reason for referral information [facility] Work Phone: Summary Purpose Family History No Family History Records Found Relationship Condition Age at Onset Recorded Date/T meghana mother Hypertension Unknown Myocardial infarction Unknown Malignant neoplasm of colon Unknown Advance Directives No Advanced Directives Records Found Advance Directive Response Recorded Date/ Time Advance Directives No May 24, 015 12:14pm Living Will No March 02, 023 4:11am Power of Custom Protection Officer No March 02, 2023 4:11am Advance Directive Response Recorded Date/ Time Advance Directives No March 16, 2023 5:30pm Chief Complaint and Reason for Visit Chief Complaint BACK PAIN Chief Complaint Admit Date WPW (Meidel) November 09, 2024 8: 57am Reason for Visit Admit Date Hyperlipidemia November 09, 2024 8: 57am PVCs (premature ventricular contractions ) November 09, 2024 8:57am Additional Source Comments (unrecognized sect ion and content) No Status Records FoundNo Status Records FoundNo Status Records Found INFORMATION SOURCE (unrecogn ized section and content) DATE CREATED AUTHOR 04/16/2018 [facility] DATE CREATED AUTHOR AUTHOR'S ORGANIZ ATION 09/28/2023 [facility] ([place] DATE CREATED AUTHOR AUTHOR'S ORGANIZ ATION 11/11/2024 [facility] Care Teams (unrecognized sec tion and content) Team Status: Active Member Role Status Dates No Primary Care Physician Family Provider Active No Primary Care Physician Primary Care Provider Active Team Status: Inactive Member Role Status Dates Dr. Stanley Rasmussen MD Emergency Provider Active No Primary Care Physician Primary Care Provider Active Team Status: Active Member Role Status Dates No Primary Care Physician Family Provider Active Dr. Caitlyn Casanova MD Primary Care Provider Active Team Status: Inactive Member Role Status Dates Dr. Caitlyn Casanova MD Primary Care Provider Active Start: August 31, 2024 End: August 31, 2024 Dr. Caitlyn Casanova MD Attending Provider Active Start: August 31, 2024 End: August 31, 2024 Team Status: Active Member Role/Relationship Status Dates No Primary Care Physician Family Provider Active Dr. Caitlyn Casanova MD Primary Care Provider Active Team Status: Inactive Member Role/Relationship Status Dates Dr. Caitlyn Casanova MD Primary Care Provider Active Start: August 31, 2024 End: August 31, 2024 Dr. Caitlyn Casanova MD Attending Provider Active Start: August 31, 2024 End: August 31, 2024 Team Status: Inactive Member Role/Relationship Status Dates Dr. Caitlyn Casanova MD Primary Care Provider Active Start: November 09, 2024 End: November 09, 2024 Dr. Caitlyn Casanova MD Referring Provider Active Start: November 09, 2024 End: November 09, 2024 Dr. Damon Maddox MD Attending Provider Active Start: November 09, 2024 End: November 09, 2024 Goals (unrecognized section and content) Goals may be documented in a n alternate section No data available for this section No data available for this section No data available for this sectionGoals may be documented in an alternate sectionGoals may be documented in an alternate section FOR RECORDS PERTAINING TO PATIENTS WHO [...] BE BASED ON THE PRIMARY CLINICAL RECORDS. [facility] provides no warranty or guarantee of the accuracy or completeness of information in this document.
== END | disposition home or self-care (01) ==
PROVIDERS: PCP Family Medicine; Referring Provider Internal Medicine Cardiovascular Disease; Visit Provider Internal Medicine Cardiovascular Disease
DX: I49.3 Ventricular premature depolarization (principal); R94.31 Abnormal electrocardiogram [ECG] [EKG]
CPT/HCPCS: 93017; 93350; Q9957; A4216; C8928